=== PATIENT | female | born 2000 | race Hispanic/Latino ===

== ENCOUNTER 2022-06-26 11:08 | Emergency (ER) | payer OTHER ==
--- OUTSIDE RECORDS SUMMARY | 2022-06-26 11:11 | XMS REPORT | Continuity of Care Document ---
:2000 Author Organization [facility] Address [address] [place] [address] Dr. Mackey. [address] [place] [address] Care Team Providers Name Role Phone Pcp, Patient Does Not Have A Primary Care Physician [phone] JESSICA CARLSON Attending Clinician Unavailable CARYN SAWYER Attending Clinician Unavailable Caryn Sawyer DO Attending Clinician Doctor Unassigned, [place] Attending Clinician Unavailable SALLIE ODONNELL Attending Clinician Unavailable Sallie Saravia Attending Clinician Jessica Carlson PA-C Attending Clinician Cj Bañuelos Attending Clinician COLLEEN HODGE Attending Clinician Unavailable Colleen Hodge NP Attending Clinician Jose Blunt MD Attending Clinician Claudia MIRZA, Marleen Dasilva Attending Clinician Unavailable Lab, Ang - Db Attending Clinician Unavailable Misty Townsend Attending Clinician MISTY RODAS Attending Clinician Unavailable JOSE BLUNT Attending Clinician Unavailable UNKNOWN, ATTENDING Attending Clinician Unavailable Unknown, Attending Attending Clinician Unavailable Afia Garcia Attending Clinician AFIA SYLVESTER Attending Clinician Unavailable Funmilayo Young RN Attending Clinician Unavailable Lab, Adc Fam Pob I Attending Clinician Unavailable Hien Kelly Attending Clinician HIEN CAMP Attending Clinician Unavailable Provider, [facility] Attending Clinician Unavailable Pcp, Patient Does Not Have A Attending Clinician [phone] Chelsea Allison Attending Clinician Payers Payer Name Policy Type Policy Number Effective Date Expiration Date Narciso jernigan [facility] [id number] 2021 CHOICE MEDICAID 00:00:00 Problems Condition Condition Condition Status Onset Resolution Last Treating Co mments Source Name Details Category Date Date Treatment Clinician Date No known No known Disease Unive rs active active ity of problems problems [facility] Allergies, Adverse Reactions, Alerts Allergy Allergy Status Severity Reaction(s) Onset Inactive Treating Comm ents Source Name Type Date Date Clinician NO KNOWN Drug Active Univers ALLERGIE Class ity of S [facility] Social History Social Habit Start Date Stop Date Quantity Comments Source Exposure to 2021-11-09 2021-11-19 Not sure [facility] SARS-CoV-2 00:00:00 09:50:[address] [facility] (event) [place] Alcohol intake 2021-11-19 2021-11-19 Ex-drinker [facility] 00:00:00 00:00:00 (finding) [facility] Tobacco use and 2021-02-20 2021-02-20 Never used Universit y of exposure 00:00:00 00:00:00 [facility] History of 2021-02-06 Smoker University of tobacco use 00:00:00 [facility] Sex Assigned At [birth year] Universit y of 00:00:00 00:00:00 [facility] Smoking Status Start Date Stop Date Source Former smoker 2021-02-20 00:00:00 2021-02-20 00:00:00 Universi ty of [facility] Medications Ordered Filled Start Stop Current Ordering Indication Dosage Frequency Signature Comments Components Source Medication Medication Date Date Medication? Clinician (SIG) Name Name dexamethaso No 10mg 10 mg, Uni vers ne sod phos 11-19 Oral, ity of PF 16:15: 15:12 ONCE, 1 [place] injection 00 :00 dose, On Medica l 10 mg 11/19/21 Branch at 1115, 1 mL ipratropium No [id number] .5mg U nivers (ATROVENT) 11-17 ity of 0.02 % 15:30: 14:34 [place] nebulizer 00 :00 Medical solution Branch 0.5 mg ipratropium No [id number] .5mg 0.5 mg, Univers (ATROVENT) 11-17 Inhalation it y of 0.02 % 15:30: 14:34 , ONCE, 1 [place] nebulizer 00 :00 dose, On Medica l solution Mon11/17/21 Branc h 0.5 mg at 1030, Routine albuterol 2021- No [id number] 2{puff} Univers (VENTOLIN) 11-17 ity of inhaler 2 14:29: 14:30 [place] Puff 00 :00 Medical Branch albuterol 2021- No [id number] 2{puff} 2 Puff, Univers (VENTOLIN) 11-17 Inhalation it y of inhaler 2 14:29: 14:30 [place] Puff [place] :[place] dose, On Medical 11/17/21 Branch at 0930, Routine methylPREDN 2021- No [id number] 40mg U nivers ISolone sod 11-17 ity of succ 14:28: 14:31 [place] (SOLU-MEDRO 00 :00 Medical L (PF)) Branch injection 40 mg methylPREDN 2021- No [id number] 40mg 40 mg, Univers ISolone sod 11-17 Intramuscu i ty of succ 14:28: 14:31 lar, ONCE, [place] (SOLU-MEDRO 00 :00 1 dose, On Me dical L (PF)) Mon11/17/21 Branch injection at 0930, 40 mg Routine albuterol No [id number] 2.5mg Un reji (PROVENTIL) 11-17 ity of 2.5 mg /3 14:23: 14:29 [place] mL (0.083 00 :05 Medical %) Branch nebulizer solution 2.5 mg sulfamethox Yes [id number] 1{tbl} Take 1 Univers azole-trime 3-02 tablet by ity of thoprim 00:00: mouth 2 [place] 800-160 mg 00 (two) Medical per tablet times Branch daily. sulfamethox 2021-0 Yes [id number] 1{tbl} Take 1 Univers azole-trime 3-02 tablet by ity of thoprim 00:00: mouth 2 [place] 800-160 mg 00 (two) Medical per tablet times Branch daily. sulfamethox 2021-0 Yes [id number] 1{tbl} Take 1 Univers azole-trime 3-02 tablet by ity of thoprim 00:00: mouth 2 [place] 800-160 mg 00 (two) Medical per tablet times Branch daily. sulfamethox 2021-0 Yes [id number] 1{tbl} Take 1 Univers azole-trime 3-02 tablet by ity of thoprim 00:00: mouth 2 [place] 800-160 mg 00 (two) Medical per tablet times Branch daily. sulfamethox 2021-0 Yes [id number] 1{tbl} Take 1 Univers azole-trime 3-02 tablet by ity of thoprim 00:00: mouth 2 [place] 800-160 mg 00 (two) Medical per tablet times Branch daily. sulfamethox 2021-0 Yes [id number] 1{tbl} Take 1 Univers azole-trime 3-02 tablet by ity of thoprim 00:00: mouth 2 [place] 800-160 mg 00 (two) Medical per tablet times Branch daily. Vital Signs Vital Name Observation Time Observation Value Comments Source Systolic blood 2021-11-19 14:51:00 140 mm[Hg] [facility] Diastolic blood 2021-11-19 14:51:00 84 mm[Hg] [facility] Heart rate 2021-11-19 14:51:00 98 /min [facility] Body temperature 2021-11-19 14:51:[address] [facility] Respiratory rate 2021-11-19 14:51:00 18 /min [facility] Body height 2021-11-19 14:51:00 170.2 cm [facility] Body weight 2021-11-19 14:51:00 106.595 kg Universi ty of [place] [facility] BMI 2021-11-19 14:51:00 36.81 kg/m2 Universi ty of [facility] Body mass index 2021-11-19 14:51:00 97.86 % Unive rsity of (BMI) [Percentile] [place] Med ical Per age and sex Branch Oxygen saturation in 2021-11-19 14:51:00 100 /min University of Arterial blood by [facility] Pulse oximetry Branch Oxygen saturation in 2021-11-17 14:55:00 100 /min University of Arterial blood by [facility] Pulse oximetry Branch Systolic blood 2021-11-17 14:15:00 128 mm[Hg] Univer sity of pressure [place] [facility] Diastolic blood 2021-11-17 14:15:00 83 mm[Hg] Unive rsity of pressure [place] [facility] [place] Heart rate 2021-11-17 14:15:00 89 /min Universi ty of [facility] Body temperature 2021-11-17 14:15:00 36.78 Christen Univ ersity of [facility] Branch Respiratory rate 2021-11-17 14:15:00 20 /min Univ ersity of [facility] Body height 2021-11-17 14:15:00 170.2 cm Universi ty of [place] [facility] [place] Body weight 2021-11-17 14:15:00 106.731 kg Universi ty of [place] [facility] [place] BMI 2021-11-17 14:15:00 36.85 kg/m2 Universi ty of [facility] Body mass index 2021-11-17 14:15:00 97.87 % Unive rsity of (BMI) [Percentile] [place] Med ical Per age and sex Branch Systolic blood 2021-11-15 23:48:00 124 mm[Hg] Univer sity of pressure [place] [facility] Diastolic blood 2021-11-15 23:48:00 82 mm[Hg] Unive rsity of pressure [facility] Branch Heart rate 2021-11-15 23:48:00 107 /min Universi ty of [place] [facility] [place] Body temperature 2021-11-15 23:48:00 37 Christen Univ ersity of [facility] Branch Respiratory rate 2021-11-15 23:48:00 17 /min Univ ersity of [place] [facility] Body height 2021-11-15 23:48:00 170.2 cm Universi ty [facility] [place] [facility] [place] Body weight 2021-11-15 23:48:00 106.652 kg [facility]i ty [facility] [place] [facility] [place] BMI 2021-11-15 23:48:00 36.83 kg/m2 Universi ty [facility] Body mass index 2021-11-15 23:48:00 97.87 % Unive rsity of (BMI) [Percentile] [place] Med ical Per age and sex Branch Oxygen saturation in 2021-11-15 23:48:00 99 /min [facility] Arterial blood by [facility] Pulse oximetry Branch Systolic blood 2021-09-22 19:46:00 108 mm[Hg] Univer sity of pressure [facility] Diastolic blood 2021-09-22 19:46:00 70 mm[Hg] Unive rsity of pressure [facility] Heart rate 2021-09-22 19:46:00 80 /min Universi ty [facility] Body temperature 2021-09-22 19:46:00 36.94 [facility]en [facility] Respiratory rate 2021-09-22 19:46:00 18 /min [facility] Body height 2021-09-22 19:46:00 170.2 cm Universi ty of [facility] Body weight 2021-09-22 19:46:00 109.317 kg Universi ty [facility] BMI 2021-09-22 19:46:00 37.75 kg/m2 Universi ty [facility] Body mass index 2021-09-22 19:46:00 98.14 % Unive rsity of (BMI) [Percentile] [place] Med ical Per age and sex Branch Procedures Procedure Date / Time Performed Performing Clinician Sourc e CONSENT/REFUSAL FOR 2021-11-19 14:44:12 Doctor Unassigned, [facility] [place] [facility] POCT MOLECULAR STREP 2021-11-15 23:49:00 Sallie Odonnelle rsity of [facility] DISABILITY/FMLA 2021-09-23 06:01:00 Doctor Unassigned, [facility] Start End Encounter Admission Attending Care Care Encounter Source Date/Time Date/Time Type Type Clinicians Facility Department ID 2022-09-22 2022-09-22 Outpatient R ROBYN, [facility] [id number] Univers 14:00:00 14:00:00 JESSICA norman [facility] 2022-09-22 2022-09-22 Outpatient Lesvia CARLSON, [facility] [id number] Univers 14:00:00 14:00:00 JESSICA [facility] [place] [facility] 2021-11-19 2021-11-19 Emergency X [facility] ERT [id number] Univers 09:54:00 10:22:00 CARYN norman [facility] 2021-11-19 2021-11-19 Emergency [facility] 1.2.840.114 [id number] Univers 09:54:00 10:22:00 Caryn HAYNES 350.1.13.10 ity of [place] [id number] [facility] 084 [place] 2021-11-19 2021-11-19 Orders Doctor HERNANDEZ 1.2.840.114 [id number] Univers 00:00:00 00:00:00 Only Unassigned, JOURDAN 350.1.13.10 ity of [place] [facility] 4.2.7.2.[phone] [facility] 009 [place] 2021-11-17 2021-11-17 [facility] [id number] Univers 09:00:00 09:52:27 SALLIE norman o f [facility] 2021-11-17 2021-11-17 [facility] 1.2.840.114 [id number] Univers 09:00:00 09:52:27 Care [facility] 350.1.13.10 i ty of [place] 4.2.7.2.686 Dani as JOSEPHINE?BLEA [phone] [address] MEDICAL OFFICE BUILDING 2021-11-15 2021-11-15 Urgent [facility] 1.2.840.114 [id number] Univers 18:40:00 19:07:56 Care [facility] 350.1.13.10 i ty of [place] [facility] 4.2.7.2.686 Dani as JOSEPHINE?BLEA [phone] Fl dical TIFFANY [address] [place] MEDICAL OFFICE [facility] 2021-11-15 2021-11-15 Outpatient R BELLE [facility] [id number] Univers 18:40:00 19:07:56 SALLIE norman o f [facility] 2021-09-23 2021-09-23 Orders Doctor HERNANDEZ 1.2.840.114 [id number] Univers 00:00:00 00:00:00 Only Unassigned, JOURDAN 350.1.13.10 [facility] 4.2.7.2.686 Dani as [phone] [address] 2021-09-22 2021-09-22 [facility] 1.2.338.193 [id number] Univers 13:30:00 13:56:59 Visit Jessica HAYNES 350.1.13.10 i ty [place] [phone] Fl dical [address] 2021-09-22 2021-09-22 [facility] [id number] Univers 13:30:00 13:56:59 [facility] 2021-09-22 2021-09-22 Outpatient R ROBYN [facility] [id number] Univers 13:30:00 13:30:00 [facility] 2021-09-22 2021-09-22 [facility] [id number] Univers 13:30:00 13:30:00 [facility] 2021-09-15 2021-09-15 Outpatient R ROBYN [facility] [id number] Univers 14:15:00 14:50:37 [facility] 2021-09-15 2021-09-15 [facility] [id number] Univers 14:15:00 14:50:37 Visit Jessica HAYNES 350.1.13.10 i ty [place] [id number] Fl dic[address] 2021-09-15 2021-09-15 Letter [facility] 1.2.306.505 [id number] Univers 00:00:00 00:00:00 (Out) Jessica HAYNES 350.1.13.10 i ty [place] [id number] [address] 2021-09-08 2021-09-08 Outpatient R ROBYN [facility] [id number] Univers 13:00:00 14:16:30 JESSICA norman [facility] 2021-09-08 2021-09-08 [facility] [id number] Univers 13:00:00 14:16:30 Visit Jessica HAYNES 350.1.13.10 i ty [place].2.[place] [id number] [address] 2021-09-08 2021-09-08 Letter [facility] 1.2.792.883 [id number] Univers 00:00:00 00:00:00 (Out) Jessica HAYNES 350.1.13.10 i ty [place]2.[place] [id number] [address] 2021-09-01 2021-09-01 Emergency [facility] E[facility] [id number] Univers 13:14:00 14:35:00 CARYN norman [facility] 2021-09-01 2021-09-01 Emergency [facility] 1.2.840.114 [id number] Univers 13:14:00 14:35:00 Caryn HAYNES 350.1.13.10 ity [place]2.7.2.[place] CAMP[place] [id number] [address] 2021-08-31 2021-08-31 Telephone [facility] [id number] Univers 00:00:00 00:00:00 Cj Lakhani [employer] 350.1.13.10 ity of [facility] 4.2.7.2.686 Dani as MATERNAL [id number] Med ical & CHILD [address] [place] [address] 2021-08-29 2021-08-29 Emergency [facility] ERT [id number] Univers 01:33:00 02:34:00 COLLEEN ity of [facility] 2021-08-29 2021-08-29 Emergency [facility] 1.2.178.627 [id number] Univers 01:33:00 02:34:00 Colleen HAYNES 350.1.13.10 ity [facility] 4.2.7.2.686 [place] [facility] [id number] [facility] 084 [place] 2021-08-09 2021-08-09 Outpatient R BELLE [facility] [id number] Univers 15:20:00 15:50:19 SALLIE ester o f [facility] 2021-08-09 2021-08-09 Urgent Jose Blunt [facility] 1.2.840.114 [id number] Univers 15:20:00 15:50:[address] [facility] 350.1.13.10 ity [facility] 4.2.7.2.686 Dani as JOSEPHINE?BLEA [id number] [address] MEDICAL OFFICE BUILDING 2021-07-30 2021-07-30 Letter HERNANDEZ Taylor 1.2.840.114 [id number] Univers 00:00:00 00:00:00 (Out) Marleen SOLIMAN 350.1.13.10 it y of [facility] 4.2.7.2.[id number] [facility] 019 [place] 2021-07-29 2021-07-29 Telephone [facility] 1.2.840.114 [id number] Univers 00:00:00 00:00:00 [facility] 350.1.13.10 i ty of [place] 4.2.7.2.686 Dani as JOSEPHINE?BLEA [id number] [address] MEDICAL OFFICE BUILDING 2021-07-28 2021-07-28 Structurer Lab, Sacha - Calvin [facility] 1.2.840.1 [id number] Univers 13:15:00 13:30:00 Visit Clark [facility] 350.1.13.10 ity of [place] [facility] 4.2.7.2.686 Dani as JOSEPHINE?BLEA [id number] Fl steve [facility] [address] [place] MEDICAL OFFICE [facility] 2021-07-28 2021-07-28 Urgent [facility] 1.2.840. 114 [id number] Univers 12:40:00 12:40:00 Care Clark Misty [facility] 350.1.13.10 ity of [place] [facility] 4.2.7.2.686 Dani as JOSEPHINE?BLEA [id number] Fl steve [address] MEDICAL OFFICE [facility] 2021-07-28 2021-07-28 Outpatient R CLARK [facility] [id number] Univers 12:40:00 12:36:35 [facility] 2021-07-19 2021-07-19 Urgent [facility] 1.2.840.114 [id number] Univers 18:00:00 18:20:00 Care [facility] 350.1.13.10 it y of [place] 4.2.7.2.686 Dani as JOSEPHINE?BLEA [phone] [address] OFFICE [facility] 2021-07-19 2021-07-19 Outpatient R JOSE RAUL [facility] [id number] Univers 18:00:00 18:00:00 [facility] 2021-07-12 2021-07-12 Outpatient R MARSHA [facility] [id number] Univers 13:20:00 14:05:05 ATTENDING [facility] [place] [facility] 2021-07-12 2021-07-12 Urgent Belle, [facility] 1.2.840. 114 [id number] Univers 13:20:00 13:40:00 Care [facility] HEALTH 350.1.13.10 ity of [place] 4.2.7.2.686 Dani as JOSEPHINE?BLEA [id number] [address] OFFICE [facility] 2021-07-12 2021-07-12 Letter [facility] 1.2.840.114 [id number] Univers 00:00:00 00:00:00 (Out) [facility] 350.1.13.10 i ty of [place] 4.2.7.2.686 Dani as JOSEPHINE?BLEA [id number] Fl steve ALLEN [address] [facility] OFFICE [facility] 2021-03-19 2021-03-19 Refill [facility] 1.2.840.114 [id number] Univers 00:00:00 00:00:00 [facility] 350.1.13.10 i ty of [place] 4.2.7.2.686 Dani as Professio [id number] [address] 2021-02-22 2021-02-22 Urgent [facility] [id number] Univers 17:39:00 18:42:22 [facility] 350.1.13.10 it y of [place] 4.2.7.2.686 [place]i as Professio [id number] [address] 2021-02-22 2021-02-22 Outpatient R [facility] [id number] [facility] 17:40:00 17:40:00 [place] [facility] 2021-02-20 2021-02-20 [facility] 1.2.840. 114 [id number] Univers 09:45:52 10:14:45 [facility] 350.1.13.10 ity of [place] 4.2.7.2.686 Dani as Professio [id number] [address] 2021-02-20 2021-02-20 Outpatient R [facility] [id number] Univers 10:00:00 10:00:00 JOSE [facility] [place] [facility] 2021-02-20 2021-02-20 Telephone Funmilayo oYung 1.2.840.114 [id number] Univers 00:00:00 00:00:00 JOURDAN 350.1.13.10 it y of HOSPITAL 4.2.7.2.686 Dani as [id number] [address] 2021-01-04 2021-01-04 Laboratory Lab, Adc Fam Pob I [facility] 1.2. 840.114 [id number] Univers 10:39:25 10:59:25 Only [facility]ien [facility] 350.1.13.10 ity of [place] 4.2.7.2.686 Dani as Professio [id number] Fl dical nal 044 [place] Office [facility] One 2021-01-04 2021-01-04 Outpatient R TI [facility] [id number] Univers 10:40:00 10:40:00 HIEN ity of [facility] 2021-01-04 2021-01-04 Letter Doctor HERNANDEZ 1.2.840.114 [id number] Univers 00:00:00 00:00:00 (Out) Unassigned, JOURDAN 350.1.13.10 ity of [place] HOSPITAL 4.2.7.2.686 Dani as [id number] [address] 2021-01-04 2021-01-04 Orders Doctor HERNANDEZ 1.2.840.114 [id number] Univers 00:00:00 00:00:00 Only Unassigned, JOURDAN 350.1.13.10 ity of [place] HOSPITAL 4.2.7.2.[id number] [facility] 009 [place] 2021-01-04 2021-01-04 Letter Doctor HERNANDEZ 1.2.840.114 [id number] Univers 00:00:00 00:00:00 (Out) Unassigned, JOURDAN 350.1.13.10 ity of [place] HOSPITAL 4.2.7.2.686 Dani as [id number] [address] 2020-08-04 2020-08-04 Laboratory Lab, [facility] Fam Pob I [facility] 1.2. 840.114 [id number] Univers 16:42:40 17:02:40 Only Sixto [facility] 350.1.13.10 ity of [place] 4.2.7.2.686 Dani as Professio [phone] Fl dical nal 044 [facility] One 2020-08-04 2020-08-04 Outpatient R HIGINIO [facility] [id number] Univers 17:00:00 17:00:00 OMAYEMI ity of [facility] 2020-08-04 2020-08-04 Letter Doctor HERNANDEZ 1.2.840.114 [id number] Univers 00:00:00 00:00:00 (Out) UnassJOURDAN moraes 350.1.13.10 ity of [place] [facility] 4.2.7.2.686 Dani as [id number] [address] 2020-06-08 2020-06-08 Telephone Provider, [facility] 1.2.840.114 [id number] Univers 00:00:00 00:00:00 [facility] 350.1.13.10 ity of Care [place] 4.2.7.2.686 Dani as Professio [phone] [address] Office Building [facility] 2020-06-06 2020-06-06 [facility] 1.2. 840.114 [id number] Univers 18:14:21 18:34:21 Only Clark [facility] 350.1.13.10 ity of [place] 4.2.7.2.686 Dani as Professio [id number] [address] Office Building One 2020-06-06 2020-06-06 Outpatient R [facility] [id number] Univers 18:20:00 18:20:00 MISTY ity [facility] 2020-05-30 2020-05-30 Telephone Pcp, [facility] 1.2.465.133 [id number] Univers 00:00:00 00:00:00 Patient Health 350.1.13.10 it y of Does Not [place]2.[place] Professio [id number] [address] Office Building [facility] 2020-05-27 2020-05-27 Letter HERNANDEZ Taylor 1.2.840.114 [id number] Univers 00:00:00 00:00:00 (Out) Marleen SOLIMAN 350.1.13.10 it y of HOSPITAL 4.2.7.2.686 Dani as [phone] [address] 2020-05-25 2020-05-25 Laboratory Lab, Adc [facility] Pob I [facility] 1.2. 840.114 [id number] Univers 19:03:57 19:23:57 Only Chelsea Bhardwaj [employer] 350.1.13.10 ity of [place] 4.2.7.2.686 Dani as Profanetaio [phone] [address] Office Building One Results Test Description Test Time Test Comments Results Result Comments Source POCT MOLECULAR STREP 2021-11-15 23:56:19 Test Item Value Reference Range Interpretation Comme nts POCT Molecular Strep (test code = 00794-3) Negative Negative Lab Interpretation (test code = 78556-9) Normal [facility]
--- NOTE | 2022-06-26 11:43 | ER ---
Nurse's Notes [facility] Name: Cipriano Delgadillo Age: 21 yrs Sex: Female : 2000 Arrival Date: 06/26/2022 Time: 11:09 Bed 12 Private MD: Diagnosis: Epistaxis Presentation: 06/26 11:19 Chief complaint: Patient states: she has been having cough and congestion since ap3 06/23/2022. patient states that yesterday she started having blood in her mucous when she would blow her nose. she also reports today there was and increase of blood in her mucous when she would blow her nose, and she wanted to come get evaluated. Coronavirus screen: At this time, the client does not indicate any symptoms associated with coronavirus-19. Ebola Screen: No symptoms or risks identified at this time. Initial Sepsis Screen: Does the patient meet any 2 criteria? No. Patient's initial sepsis screen is negative. Does the patient have a suspected source of infection? No. Patient's initial sepsis screen is negative. Risk Assessment: Do you want to hurt yourself or someone else? Patient reports no desire to harm self or others. Onset of symptoms was June 23, 2022. 11:19 Method Of Arrival: Ambulatory ap3 11:19 Acuity: RYLEE 4 ap3 Triage Assessment: 11:21 General: Appears in no apparent distress. Behavior is calm, cooperative. Pain: Denies ap3 pain. EENT: Reports nasal congestion nasal discharge that is bloody. Neuro: Level of Consciousness is awake, alert, obeys commands, Oriented to person, place, time, situation. Cardiovascular: Patient's skin is warm and dry. Respiratory: Reports cough that is productive, Airway is patent Respiratory effort is even, unlabored. GI: Reports diarrhea. TRAINMAN: 11:22 LMP 06/12/2022 ap3 Historical: - Allergies: 11:21 No Known Allergies; ap3 - Home Meds: 11:21 None [Active]; ap3 - PMHx: 11:21 None; ap3 - Immunization history:: Client reports having NOT received the Covid vaccine. - Social history:: Smoking status: Reported history of juuling and/or vaping. Screenin:22 Abuse screen: Denies threats or abuse. Nutritional screening: No deficits noted. ap3 Tuberculosis screening: No symptoms or risk factors identified. Fall Risk None identified. Vital Signs: 11:19 BP 138 / 88; Pulse 94; Resp 17; Temp 98.5; Pulse Ox 100% ; Weight 104.33 kg; Height 2 ap3 ft. 7 in. (78.74 cm); 11:19 Body Mass Index 168.27 (104.33 kg, 78.74 cm) ap3 ED Course: 11:09 Patient arrived in ED. am2 11:18 Lorne Licea DO is Attending Physician. ms3 11:21 Triage completed. ap3 11:22 Arm band placed on left wrist. ap3 11:42 Romario Hargrove DO is Referral Physician. ms3 11:53 Patient has correct armband on for positive identification. Adult w/ patient. ap3 11:53 No provider procedures requiring assistance completed. Patient did not have IV access ap3 during this emergency room visit. Administered Medications: No medications were administered Medication: 11:53 VIS not applicable for this client. ap3 Outcome: 11:43 Discharge ordered by . ms3 11:53 Discharged to home ambulatory. ap3 11:53 Condition: good 11:53 Discharge instructions given to patient, Instructed on discharge instructions, follow up and referral plans. Demonstrated understanding of instructions, follow-up care. 11:53 Patient left the ED. ap3 Signatures: Sandrine Marvin am2 Sandrine Blair, RN RN ap3 Lorne Licea DO DO ms3
--- NOTE | 2022-06-26 11:43 | EDPHYS ---
Physician Documentation [facility] Name: Cipriano Delgadillo Age: 21 yrs Sex: Female : 2000 Arrival Date: 06/26/2022 Time: 11:09 Bed 12 Private MD: ED Physician Lorne Licea HPI: 06/26 11:44 This 21 yrs old Female presents to ER via Ambulatory with complaints of ms3 Diarrhea, Cold Symptoms, Cough - w/blood. 11:44 The patient presents to the emergency department with. ms3 11:44 The patient presents with a nose bleed, that is apparently anterior, from the right ms3 nare. Onset: The symptoms/episode began/occurred this morning. Modifying factors: The symptoms are alleviated by nothing. the symptoms are aggravated by nothing. Associated signs and symptoms: The patient has no apparent associated signs or symptoms. Severity of symptoms: At their worst the symptoms were mild in the emergency department the symptoms are unchanged Pain is currently a 0 / 10. PEDIATRICIAN/MEDICAL DOCTOR: 11:22 LMP 06/12/2022 ap3 Historical: - Allergies: 11:21 No Known Allergies; ap3 - Home Meds: 11:21 None [Active]; ap3 - PMHx: 11:21 None; ap3 - Immunization history:: Client reports having NOT received the Covid vaccine. - Social history:: Smoking status: Reported history of juuling and/or vaping. ROS: 11:44 Constitutional: Negative for fever, and chills. ms3 11:44 Respiratory: Negative for shortness of breath, cough, wheezing, and pleuritic chest pain, Abdomen/GI: Negative for abdominal pain, nausea, vomiting, diarrhea, and constipation, Skin: Negative for injury, rash, and discoloration. 11:44 ENT: Positive for nose bleed. 11:44 All other systems are negative. Exam: 11:44 Constitutional: This is a well developed, well nourished patient who is awake, alert, ms3 and in no acute distress. Head/Face: Normocephalic, atraumatic. ENT: Nares patent. No nasal discharge, no septal abnormalities noted. Tympanic membranes are normal and external auditory canals are clear. Oropharynx with no redness, swelling, or masses, exudates, or evidence of obstruction, uvula midline. Mucous membranes moist. Neck: Trachea midline, no cervical lymphadenopathy. Supple, full range of motion without nuchal rigidity, or vertebral point tenderness. No Meningismus. Chest/axilla: Normal chest wall appearance and motion. Nontender with no deformity. Cardiovascular: Regular rate and rhythm with a normal S1 and S2. No gallops, murmurs, or rubs. Normal PMI, no JVD. No pulse deficits. Respiratory: Lungs have equal breath sounds bilaterally, clear to auscultation and percussion. No rales, rhonchi or wheezes noted. No increased work of breathing, no retractions or nasal flaring. Back: No spinal tenderness. No costovertebral tenderness. Full range of motion. Psych: Awake, alert, with orientation to person, place and time. Behavior, mood, and affect are within normal limits. Vital Signs: 11:19 BP 138 / 88; Pulse 94; Resp 17; Temp 98.5; Pulse Ox 100% ; Weight 104.33 kg; Height 2 ap3 ft. 7 in. (78.74 cm); 11:19 Body Mass Index 168.27 (104.33 kg, 78.74 cm) ap3 MDM: 11:42 Patient medically screened. ms3 11:44 Data reviewed: vital signs, nurses notes, and as a result, I will discharge patient. ms3 Counseling: I had a detailed discussion with the patient and/or guardian regarding: the historical points, exam findings, and any diagnostic results supporting the discharge/admit diagnosis, the need for outpatient follow up, to return to the emergency department if symptoms worsen or persist or if there are any questions or concerns that arise at home. ED course: Discussed physical exam findings with patient. Patient to follow-up with Dr. Hargrove in 2 days. Patient understands agrees with plan. All questions were answered. Return precautions discussed include worsening symptoms, or any other concerns. Administered Medications: No medications were administered Disposition Summary: 06/26/22 11:43 Discharge Ordered Location: Home ms3 Condition: Stable ms3 Diagnosis - Epistaxis ms3 Followup: ms3 - With: Romario Hargrove DO - When: 2 - 3 days - Reason: Recheck today's complaints Discharge Instructions: - Discharge Summary Sheet ms3 - Nosebleed, Adult ms3 Forms: - Medication Reconciliation Form ms3 - Thank You Letter ms3 - Antibiotic Education ms3 - Prescription Opioid Use ms3 Signatures: Sandrine Blair, RN RN ap3 Lorne Licea, DO DO ms3
[2022-06-26 11:59] VITALS: BP 138/88; TEMP 98.5; O2SAT 100
== END 2022-06-26 11:53 | disposition home or self-care (01) ==
LOC: ER 11:08
DX: R04.0 Epistaxis (principal)
CPT/HCPCS: 99281

== ENCOUNTER 2024-01-04 09:32 | Emergency (ER) | payer OTHER ==
--- OUTSIDE RECORDS SUMMARY | 2024-01-04 09:39 | XMS REPORT | Continuity of Care Document ---
Author Name Unknown Address [address] [facility] [address]. [address] [place] [address] [facility] thconnect Address [address] [facility]. 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 Name Role Phone Kvng RNP Annamaria Primary Care Physician [phone] SHAHEEN URIBE Attending Clinician SHAHEEN Fitzgerald Attending Clinician Anuja jalloh Doctor Unassigned, Plaza Attending Clinician U navailable RADIOLOGY Attending Clinician Unavailable Radiology Attending Clinician Unavailable JOSE BLUNT Attending Clinician Unavailable Jose Blunt MD Attending Clinician [phone] Unknown, Attending Attending Clinician Unavailab le UNKNOWN, ATTENDING Attending Clinician Unavailab le 2, Adc Lab Attending Clinician Unavailable Jessica Carlson PA-C Attending Clinician [phone] JESSICA CARLSON Attending Clinician Unavailable CARYN SAWYER Attending Clinician Unavailab Caryn Parra DO Attending Clinician [phone] SALLIE ODONNELL Attending Clinician UnavailSallie Aguirre Attending Clinician [phone] Cj Bañuelos Attending Clinician [phone] COLLEEN HODGE Attending Clinician Unavailable Colleen Hodge NP Attending Clinician [phone] Claudia MIRZA, Marleen Dasilva Attending Clinician Unavailab le Lab, Ang - Db Attending Clinician Unavailable Clark MORTGAGE LOAN COMPUTATION CLERK, Misty Attending Clinician [phone] MISTY RODAS Attending Clinician Unavailable Isaac MORTGAGE LOAN COMPUTATION CLERK, Afia Attending Clinician [phone] AFIA SYLVESTER Attending Clinician Unavailxiao Young RN, Funmilayo Ram Attending Clinician Unavailable Lab, Adc Fam Pob I Attending Clinician Unavailab renetta Camp MORTGAGE LOAN COMPUTATION CLERK, Hien Attending Clinician [phone] HIEN CAMP Attending Clinician Unavailable Provider, [facility] Attending Clinician Un available Pcp, Patient Does Not Have A Attending Clinician Chelsea Allison Attending Clinician [phone] CHINA PAIZ Admitting Clinician Unavail able Payers Payer Name Policy Type Policy Number Effective Date Expirati on Date Source Problems Condition Name Condition Details Condition Category Status Onset Date Resolution Date Last Treatment Date Treating Clinician Comments Source Obesity (BMI 30-39.9) Obesity (BMI 30-39.9) Disease Active 09-22 00:00: 00 [facility] No known active problems No known active problems Disease [facility] Allergies, Adverse Reactions, Alerts Allergy Name Allergy Type Status Severity Reaction(s) Onset Date Inactive Date Treating Clinician Comments Source NO KNOWN ALLERGIE S Drug Class Active [facility] Social History Social Habit Start Date Stop Date Quantity Comments Source Gender identity [facility] Sexual orientation [facility] Exposure to SARS-CoV-2 (event) 2022-10-18 00:00:00 2022-10-28 10:22:00 Not sure [facility] Alcohol intake 2022-10-28 00:00:00 2022-10-28 00:00:00 Ex-drinker (finding) [facility] Tobacco use and exposure 2021-02-22 00:00:00 2021-02-22 00:00:00 Smokeless tobacco non-user [facility] History of Social function 2021-02-22 00:00:00 2021-02-22 00:00:00 [facility] History of tobacco use 2021-02-06 00:00:00 Cigarette Smoker [facility] Sex Assigned At 2002 00:00:00 2000 00:00:00 [facility] Smoking Status Start Date Stop Date Source Ex-smoker 2021-02-22 00:00:00 2021-02-22 00:00:00 [facility] Medications Ordered Medication Name Filled Medication Name Start Date Stop Date Current Medication? Ordering Clinician Indication Dosage Frequency Signature (SIG) Comments Components Source mupirocin 2 % topical ointment 12-14 00:00: 00 Yes 1% Lisandro Franco cholecalcif faye (vitamin D3) 1,250 mcg (50,000 unit) capsule 12-05 00:00: 00 Yes 1(50,00 0 unit) Lisandro Franco Miralax 17 gram/dose oral powder 12-03 00:00: 00 Yes gram/do se Lisandro Franco docusate sodium 250 mg capsule 24 00:00: 00 Yes 1mg Lisandro Franco ibuprofen 800 mg tablet 18 00:00: 00 Yes 1mg Lisandro Franco benzonatate 200 mg capsule 10-19 00:00: 00 Yes 1mg Lisandro Franco Lidocaine Viscous 2 % mucosal solution 10-19 00:00: 00 Yes 10% Lisandro Franco ondansetron 4 mg disintegrat ing tablet - 00:00: 00 Yes 1mg Lisandro Franco metformin ER 500 mg tablet,exte nded release 24 hr 10-16 00:00: 00 Yes 1mg Lisandro Franco TAKE 1 TABLET FOR MIGRAINE RELIEF. MAY REPEAT EVERY 2 HOURS. MAX 200MG/DAY. 2-27 00:00: 00 11-15 00:00 :00 No 50 Lisandro Franco TAKE 10 ML EVERY 6-8 HOURS NEEDED FOR COUGH AND CONGESTION 2-19 00:00: 00 11-15 00:00 :00 No [id number] Lisandro Franco INJECT 0.25 MG SUBCUTANEOU SLY WEEKLY, INCREASE TO 0.5 MG SUBCUTANEOU SLY WEEKLY AFTER 4 WEEKS 1-08 00:00: 00 11-15 00:00 :00 No 23 Lisandro Franco TAKE 1 CAPSULE TWICE DAILY. 2022-07 2 00:00: 00 11-15 00:00 :00 No 75 Lisandro Franco TAKE 10 ML EVERY 4-6 HOURS NEEDED FOR COUGH AND CONGESTION 2022-07 2 00:00: 00 11-15 00:00 :00 No [id number] Lisandro Franco TAKE 1 TABLET BY MOUTH EVERY DAY 2022-07 2- 00:00: 00 11-15 00:00 :00 No 500 Lisandro Franco TAKE 1 TABLET BY MOUTH EVERY DAY 2022-07 0 00:00: 00 11-15 00:00 :00 No 500 Lisandro Franco TAKE 1 TABLET EVERY 8 HOURS WITH FOOD NEEDED. 03-07 00:00: 00 11-15 00:00 :00 No 800 Lisandro Franco TAKE 1 TABLET DAILY. 03-07 00:00: 00 11-15 00:00 :00 No 10 Lisandrodonovan Franco MEDROXYPR AC 03-07 00:00: 00 11-15 00:00 :00 No Lisandro Franco TAKE 1 TABLET BY MOUTH ONCE DAILY 02-09 00:00: 00 11-15 00:00 :00 No 500 Lisandro Franco NAPROXEN 02-09 00:00: 00 11-15 00:00 :00 No Lisandro Franco TAKE 1 TABLET EVERY 12 HOURS DAILY. 02-07 00:00: 00 11-15 00:00 :00 No 250 Lisandro Franco TAKE 1 TABLET BY MOUTH EVERY DAY FOR 5 DAYS 11-02 00:00: 00 11-15 00:00 :00 No Lisandro Franco ondansetron 4 mg disintegrat ing tablet 10-28 00:00: 00 Yes [id number] 4mg Take 1 tablet by mouth every 8 (eight) hours as needed for Nausea and Vomiting (N/V). [facility] benzonatate 100 mg capsule 10-28 00:00: 00 Yes [id number] 200mg Take 2 capsules by mouth every 8 (eight) hours as needed for Cough. [facility] bromphenira mine-pseudo ephedrine-D M (BROMFED DM) 2-30-10 mg/5 mL syrup 10-28 00:00: 00 Yes [id number] 10mL Take 10 mL by mouth 4 (four) times daily as needed for Congestion /Allergies . [facility] ONDANSETRON ODT 10-28 00:00: 00 11-15 00:00 :00 No Lisandro Franco BROM/PSE/DM SYP 10-28 00:00: 00 11-15 00:00 :00 No Lisandro Franco BENZONATATE 10-28 00:00: 00 11-15 00:00 :00 No Lisandro Franco bromphenira mine-pseudo ephedrine-D M (BROMFED DM) 2-30-10 mg/5 mL syrup 10-28 00:00: 00 10-28 00:00 :00 No [id number] 5mL Take 5 mL by mouth 4 (four) times daily as needed for Congestion /Allergies . [facility] dexamethaso ne sod phos PF injection 10 mg 11-19 16:15: 00 11-19 15:12 :00 No 10mg 10 mg, Oral, ONCE, 1 dose, On Mon11/19/21 at 1115, 1 mL [facility] ipratropium (ATROVENT) 0.02 % nebulizer solution 0.5 mg 11-17 15:30: 00 11-17 14:34 :00 No [id number] .5mg [facility] albuterol (VENTOLIN) inhaler 2 Puff 11-17 14:29: 00 11-17 14:30 :00 No [id number] 2{puff} [facility] methylPREDN ISolone sod succ (SOLU-MEDRO L (PF)) injection 40 mg 11-17 14:28: 00 11-17 14:31 :00 No [id number] 40mg [facility] albuterol (PROVENTIL) 2.5 mg /3 mL (0.083 %) nebulizer solution 2.5 mg 11-17 14:23: 00 11-17 14:29 :05 No [id number] 2.5mg [facility] sulfamethox azole-trime thoprim 800-160 mg per tablet 09-15 00:00: 00 Yes [id number] 1{tbl} Take 1 tablet by mouth 2 (two) times daily. [facility] triamcinolo ne acetonide 0.5 % topical ointment 07-30 00:00: 00 Yes 1% Lisandro Franco prednisone 10 mg tablet 07-30 00:00: 00 Yes mg Lisandro Franco Vital Signs Vital Name Observation Time Observation Value Comments S ource Systolic blood pressure 2022-10-28 15:52:00 104 mm[Hg] [facility] Diastolic blood pressure 2022-10-28 15:52:00 71 mm[Hg] [facility] Heart rate 2022-10-28 15:28:00 118 /min [facility] Body temperature 2022-10-28 15:28:00 37.67 Christen [facility] Respiratory rate 2022-10-28 15:28:00 18 /min [facility] Body height 2022-10-28 15:28:00 170.2 cm [facility] Body weight 2022-10-28 15:28:00 106.731 kg [facility] BMI 2022-10-28 15:28:00 36.85 kg/m2 [facility] Oxygen saturation in Arterial blood by Pulse oximetry 2022-10-28 15:28:00 98 /min [facility] Systolic blood pressure 2022-09-22 20:22:00 119 mm[Hg] [facility] Diastolic blood pressure 2022-09-22 20:22:00 77 mm[Hg] [facility] Heart rate 2022-09-22 20:22:00 91 /min [facility] Body temperature 2022-09-22 20:22:00 36.78 Christen [facility] Respiratory rate 2022-09-22 20:22:00 18 /min [facility] Body height 2022-09-22 20:22:00 170.2 cm [facility] Body weight 2022-09-22 20:22:00 108.863 kg [facility] BMI 2022-09-22 20:22:00 37.59 kg/m2 [facility] Systolic blood pressure 2021-11-19 14:51:00 140 mm[Hg] [facility] Diastolic blood pressure 2021-11-19 14:51:00 84 mm[Hg] [facility] Heart rate 2021-11-19 14:51:00 98 /min [facility] Body temperature 2021-11-19 14:51:00 37.22 Christen [facility] Respiratory rate 2021-11-19 14:51:00 18 /min [facility] Body height 2021-11-19 14:51:00 170.2 cm [facility] Body weight 2021-11-19 14:51:00 106.595 kg [facility] BMI 2021-11-19 14:51:00 36.81 kg/m2 [facility] Body mass index (BMI) [Percentile] Per age and sex 2021-11-19 14:51:00 97.86 % [facility] Oxygen saturation in Arterial blood by Pulse oximetry 2021-11-19 14:51:00 100 /min [facility] Oxygen saturation in Arterial blood by Pulse oximetry 2021-11-17 14:55:00 100 /min [facility] Systolic blood pressure 2021-11-17 14:15:00 128 mm[Hg] [facility] Diastolic blood pressure 2021-11-17 14:15:00 83 mm[Hg] [facility] Heart rate 2021-11-17 14:15:00 89 /min [facility] Body temperature 2021-11-17 14:15:00 36.78 Christen [facility] Respiratory rate 2021-11-17 14:15:00 20 /min [facility] Body height 2021-11-17 14:15:00 170.2 cm [facility] Body weight 2021-11-17 14:15:00 106.731 kg [facility] BMI 2021-11-17 14:15:00 36.85 kg/m2 [facility] Body mass index (BMI) [Percentile] Per age and sex 2021-11-17 14:15:00 97.87 % [facility] Systolic blood pressure 2021-11-15 23:48:00 124 mm[Hg] [facility] Diastolic blood pressure 2021-11-15 23:48:00 82 mm[Hg] [facility] Heart rate 2021-11-15 23:48:00 107 /min [facility] Body temperature 2021-11-15 23:48:00 37 Christen [facility] Respiratory rate 2021-11-15 23:48:00 17 /min [facility] Body height 2021-11-15 23:48:00 170.2 cm [facility] Body weight 2021-11-15 23:48:00 106.652 kg [facility] BMI 2021-11-15 23:48:00 36.83 kg/m2 [facility] Body mass index (BMI) [Percentile] Per age and sex 2021-11-15 23:48:00 97.87 % [facility] Oxygen saturation in Arterial blood by Pulse oximetry 2021-11-15 23:48:00 99 /min [facility] Systolic blood pressure 2021-09-22 19:46:00 108 mm[Hg] [facility] Diastolic blood pressure 2021-09-22 19:46:00 70 mm[Hg] [facility] Heart rate 2021-09-22 19:46:00 80 /min [facility] Body temperature 2021-09-22 19:46:00 36.94 Christen [facility] Respiratory rate 2021-09-22 19:46:00 18 /min [facility] Body height 2021-09-22 19:46:00 170.2 cm [facility] Body weight 2021-09-22 19:46:00 109.317 kg [facility] BMI 2021-09-22 19:46:00 37.75 kg/m2 [facility] Body mass index (BMI) [Percentile] Per age and sex 2021-09-22 19:46:00 98.14 % [facility] BP Systolic 2023-12-29 16:45:00 96 mm[Hg] Step hen F Salvador BP Diastolic 2023-12-29 16:45:00 62 mm[Hg] Narendra phen F Salvador Weight Measured 2023-12-29 16:45:00 258.20 pounds Lisandro F Salvador Height Measured 2023-12-29 16:45:00 64.00 inches Lisandro F [place] Body Temperature 2023-12-29 16:45:00 98.20 degrees Lisandro F Salvador Heart Rate 2023-12-29 16:45:00 89.00 /min Yani en F Salvador Respiratory Rate 2023-12-29 16:45:00 Lisandro F Salvador BP Systolic 2023-12-22 17:36:00 107 mm[Hg] Step hen F Salvador BP Diastolic 2023-12-22 17:36:00 68 mm[Hg] Narendra phen F [place] Weight Measured 2023-12-22 17:36:00 256.80 pounds Lisandro F Salvador Height Measured 2023-12-22 17:36:00 64.00 inches Lisandro F Salvador Body Temperature 2023-12-22 17:36:00 98.00 degrees Lisandro F Salvador Heart Rate 2023-12-22 17:36:00 89.00 /min Yani en F Salvador Respiratory Rate 2023-12-22 17:36:00 Lisandro F Salvador BP Systolic 2023-12-05 15:01:00 100 mm[Hg] Step hen F Salvador BP Diastolic 2023-12-05 15:01:00 69 mm[Hg] Narendra phen F [place] Weight Measured 2023-12-05 15:01:00 261.80 pounds Lisandro F Salvador Height Measured 2023-12-05 15:01:00 64.00 inches Lisandro F Salvador Body Temperature 2023-12-05 15:01:00 Lisandro F Salvador Heart Rate 2023-12-05 15:01:00 91.00 /min Yani en F Salvador Respiratory Rate 2023-12-05 15:01:00 Lisandro F Salvador BP Systolic 2023-12-04 17:35:00 113 mm[Hg] Step hen F Salvador BP Diastolic 2023-12-04 17:35:00 63 mm[Hg] Narendra phen F [place] Weight Measured 2023-12-04 17:35:00 262.00 pounds Lisandro F Salvador Height Measured 2023-12-04 17:35:00 64.00 inches Lisandro F Salvador Body Temperature 2023-12-04 17:35:00 97.90 degrees Lisandro F Salvador Heart Rate 2023-12-04 17:35:00 86.00 /min Yani en F Salvador Respiratory Rate 2023-12-04 17:35:00 Lisandro F Salvador BP Systolic 2023-11-08 16:38:00 118 mm[Hg] Step hen F Salvador BP Diastolic 2023-11-08 16:38:00 79 mm[Hg] Narendra phen F [place] Weight Measured 2023-11-08 16:38:00 262.00 pounds Lisandro F Salvador Height Measured 2023-11-08 16:38:00 64.00 inches Lisandro F Salvador Body Temperature 2023-11-08 16:38:00 98.80 degrees Lisandro F Salvador Heart Rate 2023-11-08 16:38:00 79.00 /min Yani en F Salvador Respiratory Rate 2023-11-08 16:38:00 18.00 /min Lisandro F Salvador BP Systolic 2023-11-02 16:48:00 108 mm[Hg] Step hen F Salvador BP Diastolic 2023-11-02 16:48:00 63 mm[Hg] Narendra phen F [place] Weight Measured 2023-11-02 16:48:00 259.60 pounds Lisandro F Salvador Height Measured 2023-11-02 16:48:00 64.00 inches Lisandro F Salvador Body Temperature 2023-11-02 16:48:00 98.10 degrees Lisandro F Salvador Heart Rate 2023-11-02 16:48:00 73.00 /min Yani en F Salvador Respiratory Rate 2023-11-02 16:48:00 Lisandro F Salvador BP Systolic 2023-10-17 16:42:00 126 mm[Hg] Step hen F Salvador BP Diastolic 2023-10-17 16:42:00 78 mm[Hg] Narendra phen F Salvador Weight Measured 2023-10-17 16:42:00 261.00 pounds Lisandro F Salvador Height Measured 2023-10-17 16:42:00 64.00 inches Lisandro F Salvador Body Temperature 2023-10-17 16:42:00 98.60 degrees Lisandro F Salvador Heart Rate 2023-10-17 16:42:00 79.00 /min Yani en F Salvador Respiratory Rate 2023-10-17 16:42:00 Lisandro F Salvador BP Systolic 2023-09-12 08:25:00 123 mm[Hg] Step hen F Salvador BP Diastolic 2023-09-12 08:25:00 88 mm[Hg] Narendra phen F Salvador Weight Measured 2023-09-12 08:25:00 267.00 pounds Lisandro F Salvador Height Measured 2023-09-12 08:25:00 64.00 inches Lisandro F Salvador Body Temperature 2023-09-12 08:25:00 98.20 degrees Lisandro F Salvador Heart Rate 2023-09-12 08:25:00 87.00 /min Yani en F Salvador Respiratory Rate 2023-09-12 08:25:00 Lisandro F Salvador BP Systolic 2023-09-04 08:34:00 119 mm[Hg] Step hen F Salvador BP Diastolic 2023-09-04 08:34:00 69 mm[Hg] Narendra phen F Salvador Weight Measured 2023-09-04 08:34:00 262.20 pounds Lisandro F Salvador Height Measured 2023-09-04 08:34:00 64.00 inches Lisandro F Salvador Body Temperature 2023-09-04 08:34:00 98.70 degrees Lisandro F Salvador Heart Rate 2023-09-04 08:34:00 108.00 /min Step hen F Salvador Respiratory Rate 2023-09-04 08:34:00 Lisandro F Salvador BP Systolic 2023-07-24 16:47:00 126 mm[Hg] Step hen F Salvador BP Diastolic 2023-07-24 16:47:00 88 mm[Hg] Narendra phen F Salvador Weight Measured 2023-07-24 16:47:00 269.60 pounds Lisandro F Salvador Height Measured 2023-07-24 16:47:00 64.00 inches Lisandro F Salvador Body Temperature 2023-07-24 16:47:00 98.20 degrees Lisandro F Salvador Heart Rate 2023-07-24 16:47:00 104.00 /min Step hen F Salvador Respiratory Rate 2023-07-24 16:47:00 Lisandro F Salvdaor BP Systolic 2023-07-04 09:30:00 135 mm[Hg] Step hen F Salvador BP Diastolic 2023-07-04 09:30:00 60 mm[Hg] Narendra phen F Salvador Weight Measured 2023-07-04 09:30:00 230.00 pounds Lisandro F Salvador Height Measured 2023-07-04 09:30:00 64.00 inches Lisandro F Salvador Body Temperature 2023-07-04 09:30:00 98.10 degrees Lisandro F Salvador Heart Rate 2023-07-04 09:30:00 89.00 /min Yani en F Salvador Respiratory Rate 2023-07-04 09:30:00 Lisandro F Salvador BP Systolic 2023-06-01 08:33:00 138 mm[Hg] Step hen F Salvador BP Diastolic 2023-06-01 08:33:00 70 mm[Hg] Narendra phen F Salvador Weight Measured 2023-06-01 08:33:00 272.80 pounds Lisandro F Salvador Height Measured 2023-06-01 08:33:00 64.00 inches Lisandor F Salvador Body Temperature 2023-06-01 08:33:00 98.20 degrees Lisandro F Salvador Heart Rate 2023-06-01 08:33:00 104.00 /min Step hen F Salvador Respiratory Rate 2023-06-01 08:33:00 Lisandor F Salvador BP Systolic 2023-02-07 17:14:00 118 mm[Hg] Step hen F Salvador BP Diastolic 2023-02-07 17:14:00 83 mm[Hg] Narendra phen F Salvador Weight Measured 2023-02-07 17:14:00 250.80 pounds Lisandro F Salvador Height Measured 2023-02-07 17:14:00 64.00 inches Lisandro F Salvador Body Temperature 2023-02-07 17:14:00 98.60 degrees Lisandro F Salvador Heart Rate 2023-02-07 17:14:00 93.00 /min Yani en F Salvador Respiratory Rate 2023-02-07 17:14:00 Lisandro F Salvador BP Systolic 2023-01-09 14:33:00 132 mm[Hg] Step hen F Salvador BP Diastolic 2023-01-09 14:33:00 66 mm[Hg] Narendra phen F Salvador Weight Measured 2023-01-09 14:33:00 245.40 pounds Lisandro F Salvador Height Measured 2023-01-09 14:33:00 64.00 inches Lisandro F Salvador Body Temperature 2023-01-09 14:33:00 98.20 degrees Lisandro F Salvador Heart Rate 2023-01-09 14:33:00 102.00 /min Step hen F Salvador Respiratory Rate 2023-01-09 14:33:00 18.00 /min Lisandro F Salvador BP Systolic 2018-07-30 12:11:00 111 mm[Hg] Step hen F Salvador BP Diastolic 2018-07-30 12:11:00 76 mm[Hg] Narendra phen F Salvador Weight Measured 2018-07-30 12:11:00 140.00 pounds Lisandro Franco Height Measured 2018-07-30 12:11:00 64.00 inches Lisandro Franco Body Temperature 2018-07-30 12:11:00 98.70 degrees Lisandro Franco Heart Rate 2018-07-30 12:11:00 82.00 /min Yani en F Salvador Respiratory Rate 2018-07-30 12:11:00 18.00 /min Lisandro Franco Procedures Procedure Date / Time Performed Performing Clinician Source REFERRAL- REQUEST/RESPONSE 2023-03-09 05:01:00 Doctor Unassigned, Plaza [facility] US PELVIS COMPLETE WITH TRANSVAGINAL 2023-02-06 17:01:17 Requisition, Paper [facility] POCT MOLECULAR STREP 2022-10-28 15:35:00 Unknown, Atte hayes [facility] ASSIGNMENT OF BENEFITS 2022-09-22 20:07:39 Docto r Unassigned, Plaza [facility] CONSENT/REFUSAL FOR DIAGNOSIS AND TREATMENT 2021-11-19 14:44:12 Doctor Unassigned, Plaza [facility] POCT MOLECULAR STREP 2021-11-15 23:49:00 VinodYenifer harris rox [facility] DISABILITY/FMLA 2021-09-23 06:01:00 Doctor Unass igned, Plaza [facility] Encounters Start Date/Time End Date/Time Encounter Type Admission Type Attending [facility] Care Department Encounter ID Source 2024-01-03 15:26:54 2024-01-03 15:26:54 Outpatient SFA SFA [id number] Lisandro Franco 2023-12-30 11:46:37 2023-12-30 11:46:37 Outpatient SFA SFA [id number] Lisandro Franco 2023-12-29 16:38:55 2023-12-29 16:38:55 Outpatient SFA SFA [id number] Lisandro Franco 2023-12-29 00:00:00 2023-12-29 00:00:00 Outpatient Visit SFA [id number] Lisandro Franco 2023-12-22 17:35:41 2023-12-22 17:35:41 Outpatient SFA SFA [id number] Lisandro Franco 2023-12-22 00:00:00 2023-12-22 00:00:00 Outpatient Visit SFA [id number] Lisandro Franco 2023-12-15 17:31:33 2023-12-15 17:31:33 Outpatient SFA SFA [id number] Lisandro Franco 2023-12-15 00:00:00 2023-12-15 00:00:00 Outpatient Visit SFA [id number] Lisandro Franco 2023-12-05 14:49:34 2023-12-05 14:49:34 Outpatient SFA SFA [id number] Lisandro Franco 2023-12-04 17:33:11 2023-12-04 17:33:11 Outpatient SFA SFA [id number] Lisandro Franco 2023-12-04 00:00:00 2023-12-04 00:00:00 Outpatient Visit SFA [id number] Lisandro Franco 2023-11-08 16:37:14 2023-11-08 16:37:14 Outpatient SFA [id number] [id number] Lisandro Huynh Salvador 2023-11-08 00:00:00 2023-11-08 00:00:00 Outpatient Visit SFA [id number] Lisandro Huynh Salvador 2023-11-02 16:42:12 2023-11-02 16:42:12 Outpatient SFA [id number] [id number] Lisandro Huynh [place] 2023-11-02 00:00:00 2023-11-02 00:00:00 Outpatient Visit SFA [id number] Lisandro Franco 2023-10-18 11:45:09 2023-10-18 11:45:09 Outpatient SFA SFA [id number] Lisandro Huynh Salvador 2023-10-17 16:38:02 2023-10-17 16:38:02 Outpatient SFA SFA [id number] Lisandro Huynh [place] 2023-09-12 08:21:26 2023-09-12 08:21:26 Outpatient SFA [id number] [id number] Lisandro Huynh [place] 2023-09-04 08:26:39 2023-09-04 08:26:39 Outpatient SFA SFA [id number] Lisandro Huynh [place] 2023-08-16 12:39:26 2023-08-16 12:39:26 Outpatient SFA SFA [id number] Lisandro Huynh [place] 2023-08-10 14:14:16 2023-08-10 14:14:16 Outpatient SFA SFA [id number] Lisandro Huynh [place] 2023-07-25 09:14:13 2023-07-25 09:14:13 Outpatient SFA SFA [id number] Lisandro Huynh [place] 2023-07-24 16:57:09 2023-07-24 16:57:09 Outpatient [facility] [id number] Lisandro Franco 2023-07-04 11:05:21 2023-07-04 11:05:21 Outpatient [place] [id number] Lisandro Franco 2023-06-03 11:39:32 2023-06-03 11:39:32 Outpatient [facility] [id number] Lisandro Franco 2023-06-01 13:30:11 2023-06-01 13:30:11 Outpatient [place] [id number] Lisandro Franco 2023-05-30 14:00:00 2023-05-30 14:00:00 Outpatient R YOUNG-JIM S, SHAHEEN YOUNG-JIM S, SHAHEEN [facility] [id number] [facility] 2023-05-16 00:00:00 2023-05-16 00:00:00 Patient Secure Msg Doctor Unassigned, Plaza [facility] [id number] [facility] 2023-03-09 00:00:00 2023-03-09 00:00:00 Orders Only Doctor Unassigned, Plaza [facility] [id number] [facility] 2023-02-08 08:45:54 2023-02-08 08:45:54 Outpatient [facility] [id number] Lisandro Huynh Salvador 2023-02-07 17:09:37 2023-02-07 17:09:37 Outpatient [facility] 0725 Lisandro Huynh Salvador 2023-02-06 11:20:40 2023-02-06 23:59:00 Outpatient R RADIOLOGY [facility] [id number] [facility] 2023-02-06 11:20:40 2023-02-06 23:59:[address] [facility] 1.2.840.114 350.1.13.10 4.2.7.2.686 [id number] [facility] 2023-01-09 14:20:50 2023-01-09 14:20:50 Outpatient [facility] [id number] Lisandro Franco 2022-10-28 10:20:00 2022-10-28 10:54:25 Outpatient R JOSE BLUNT [facility] [id number] [facility] 2022-10-28 10:20:00 2022-10-28 10:54:25 Urgent Care Jose Blunt Unknown, Attending [facility] 1..840.114 350.1.13.10 4.2.7.2.686 [id number] [facility] 2022-09-22 15:15:00 2022-09-22 15:30:00 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 2, Adc Lab Jessica Carlson [facility] 1.2.840.114 350.1.13.10 4.2.7.2.686 [id number] [facility] 2022-09-22 14:00:00 2022-09-22 15:05:41 [id number] 2022-09-22 14:00:00 2022-09-22 15:05:41 Office Visit Jessica Carlson [facility] 1.2.840.114 350.1.13.10 4.2.7.2.686 [id number] [facility] 2022-09-22 14:00:00 2022-09-22 14:00:00 Outpatient R ROBYN [facility] [id number] [facility] 2022-09-22 00:00:00 2022-09-22 00:00:00 Orders Only Doctor Unassigned, Plaza [facility] 1.114 350.1.13.10 4.2.7.2.686 [id number] [facility] 2021-11-19 09:54:00 2021-11-19 10:22:00 Emergency X CARYN SAWYER [facility] ERT [id number] [facility] 2021-11-19 09:54:00 2021-11-19 10:22:00 Emergency Caryn Sawyer Reinier [facility] 1.114 350.1.13.10 4.2.7.2.686 [id number] [facility] 2021-11-19 00:00:00 2021-11-19 00:00:00 Orders Only Doctor Unassigned, Plaza [facility] 1.114 350.1.13.10 4.2.7.2.686 [id number] [facility] 2021-11-17 09:00:00 2021-11-17 09:52:27 Outpatient R [facility] [id number] [facility] 2021-11-17 09:00:00 2021-11-17 09:52:27 Urgent Care [facility] 1.114 350.1.13.10 4.2.7.2.686 [id number] [facility] 2021-11-15 18:40:00 2021-11-15 19:07:56 Outpatient R [facility] [id number] [facility] 2021-11-15 18:40:00 2021-11-15 19:07:56 Urgent Care [facility] 1.114 350.1.13.10 4.2.7.2.686 [id number] [facility] 2021-09-23 00:00:00 2021-09-23 00:00:00 Orders Only Doctor Unassigned, Plaza [facility] 1.2.114 350.1.13.10 4.2.7.2.686 [id number] [facility] 2021-09-22 13:30:00 2021-09-22 13:56:59 Office Visit Robyn Jessica [facility] 1..114 350.1.13.10 4.2.7.2.686 [id number] [facility] 2021-09-22 13:30:00 2021-09-22 13:56:59 Outpatient R JESSICA CARLSON [facility] [id number] [facility] 2021-09-22 13:30:00 2021-09-22 13:30:00 Outpatient R JESSICA CARLSON [facility] [id number] [facility] 2021-09-22 13:30:00 2021-09-22 13:30:00 Outpatient R JESSICA CARLSON [facility] [id number] [facility] 2021-09-15 14:15:00 2021-09-15 14:50:37 Outpatient R JESSICA CARLSON [facility] [id number] [facility] 2021-09-15 14:15:00 2021-09-15 14:50:37 Office Visit Jessica Carlson [facility] BUILDING 1.84.114 350.1.13.10 4.2.7.2.686 [id number] [facility] 2021-09-15 00:00:00 2021-09-15 00:00:00 Letter (Out) Robyn Jessica [facility] BUILDING 1.2.114 350.1.13.10 4.2.7.2.686 [id number] [facility] 2021-09-08 13:00:00 2021-09-08 14:16:30 Outpatient R JESSICA CARLSON [facility] [id number] [facility] 2021-09-08 13:00:00 2021-09-08 14:16:30 Office Visit Jessica Carlson [facility] 1.2.840.114 350.1.13.10 4.2.7.2.686 [id number] [facility] 2021-09-08 00:00:00 2021-09-08 00:00:00 Letter (Out) Jessica Carlson [facility] 1.2.840.114 350.1.13.10 4.2.7.2.686 [id number] [facility] 2021-09-01 13:14:00 2021-09-01 14:35:00 Emergency X CARYN SAWYER [facility] ERT [id number] [facility] 2021-09-01 13:14:00 2021-09-01 14:35:[address] 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 1.284.114 350.1.13.10 4.2.7.2.686 [id number] [facility] 2021-08-09 15:20:00 2021-08-09 15:50:19 Outpatient R YENIFER ODONNELLTANY [facility] [id number] [facility] 2021-08-09 15:20:00 2021-08-09 15:50:19 Urgent Care Jose Blunt Vinod Pending sale to [facility] JOSEPHINE?CHRISTI [facility] BUILD[facility] 1.284.114 350.1.13.10 4.2.7.2.686 [id number] [facility] 2021-07-30 00:00:00 2021-07-30 00:00:00 Letter (Out) Marleen Taylor [facility] 1.284.114 350.1.13.10 4.2.7.2.686 [id number] [facility] 2021-07-29 00:00:00 2021-07-29 00:00:00 Telephone Yenifer Odonnelltany [facility] 1.284.114 350.1.13.10 4.2.7.2.686 [id number] [facility] 2021-07-28 13:15:00 2021-07-28 13:30:00 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 Lab, Sacha Rodas Misty [facility] 1.284.114 350.1.13.10 4.2.7.2.686 [id number] [facility] 2021-07-28 12:40:00 2021-07-28 12:40:00 Urgent Care Sallie Odonnell [facility] JOSEPHINE?CHRISTI [facility] OFF[facility] BUILD[facility] 1.84114 350.1.13.10 4.2.7.2.686 [id number] [facility] 2021-07-28 12:40:00 2021-07-28 12:36:35 Outpatient R MISTY RODAS [facility] [id number] [facility] 2021-07-19 18:00:00 2021-07-19 18:20:00 Urgent Care Jose Raul [facility] JO[facility]PHINE[facility] 1.84114 350.1.13.10 4.2.7.2.686 [id number] [facility] 2021-07-19 18:00:00 2021-07-19 18:00:00 Outpatient R JOSE RAUL JOSE [facility] [id number] [facility] 2021-07-12 13:20:00 2021-07-12 14:05:05 Outpatient R UNKNOWN, ATTENDING [facility] [id number] [facility] 2021-07-12 13:20:00 2021-07-12 13:40:00 Urgent Care Sallie Odonnell Unknown, Attending [facility] 1.84114 350.1.13.10 4.2.7.2.686 [id number] [facility] 2021-07-12 00:00:00 2021-07-12 00:00:00 Letter (Out) Sallie [facility]donnell [facility] 1.84114 350.1.13.10 4.2.7.2.686 [id number] [facility] 2021-06-29 00:00:00 2021-06-29 00:00:00 Patient Secure Msg Doctor Unassigned, Plaza [facility] 1.114 350.1.13.10 4.2.7.2.686 [id number] [facility] 2021-03-19 00:00:00 2021-03-19 00:00:00 Refill VinodSallie harris [facility] Office Building One 1.114 350.1.13.10 4.2.7.2.686 [id number] [facility] 2021-02-23 00:00:00 2021-02-23 00:00:00 Patient Secure Msg Doctor Unassigned, Plaza [facility] 1.114 350.1.13.10 4.2.7.2.686 [id number] [facility] 2021-02-22 17:39:00 2021-02-22 18:42:22 [facility] 1.114 350.1.13.10 4.2.7.2.686 [id number] [facility] 2021-02-22 17:40:00 2021-02-22 17:40:00 Outpatient R AFIA SYLVESTER [facility] [id number] [facility] 2021-02-20 09:45:52 2021-02-20 10:14:45 Urgent Care VinodYeniferSallie Song, [facility] Office Building One 1.114 350.1.13.10 4.2.7.2.686 [id number] [facility] 2021-02-20 10:00:00 2021-02-20 10:00:00 Outpatient R JOSE BLUNT [facility] [id number] [facility] 2021-02-20 00:00:00 2021-02-20 00:00:00 Telephone Funmilayo Young [facility] 1.114 350.1.13.10 4.2.7.2.686 [id number] [facility] 2021-01-04 10:39:25 2021-01-04 10:59:25 Laboratory Only Lab, [facility] Hien Gill [facility] Office Building One .114 350.1.13.10 4.2.7.2.686 [id number] [facility] 2021-01-04 10:40:00 2021-01-04 10:40:00 [facility] [id number] [facility] 2021-01-04 00:00:00 2021-01-04 00:00:00 Letter (Out) Doctor Unassigned, Plaza [facility] 1.0.114 350.1.13.10 4.2.7.2.686 [id number] [facility] 2021-01-04 00:00:00 2021-01-04 00:00:00 Orders Only Doctor Unassigned, Plaza [facility] 1.840.114 350.1.13.10 4.2.7.2.686 [id number] [facility] 2021-01-04 00:00:00 2021-01-04 00:00:00 Letter (Out) Doctor Unassigned, Plaza [facility] 1.840.114 350.1.13.10 4.2.7.2.686 [id number] [facility] 2020-08-04 16:42:40 2020-08-04 17:02:40 Laboratory Only Lab, Adc [facility] I Afia Sylvester [facility] Office Building One .114 350.1.13.10 4.2.7.2.686 [id number] [facility] 2020-08-04 17:00:00 2020-08-04 17:00:00 Outpatient R AFIA SYLVESTER [facility] [id number] [facility] 2020-08-04 00:00:00 2020-08-04 00:00:00 Letter (Out) Doctor Unassigned, Plaza [facility] 1.0.114 350.1.13.10 4.2.7.2.686 [id number] [facility] 2020-06-08 00:00:00 2020-06-08 00:00:00 Telephone Provider, [facility] Urgent Care [facility] Office Building One 1.114 350.1.13.10 4.2.7.2.686 [id number] [facility] 2020-06-06 18:14:21 2020-06-06 18:34:21 Laboratory Only Lab, Adc Fam Pob I Clark [facility] Office Building One 1.114 350.1.13.10 4.2.7.2.686 [id number] [facility] 2020-06-06 18:20:00 2020-06-06 18:20:00 Outpatient R CLARK MISTY [facility] [id number] [facility] 2020-05-30 00:00:00 2020-05-30 00:00:00 Telephone Pcp, Patient Does Not Have A [facility] Office Building One 1.114 350.1.13.10 4.2.7.2.686 [id number] [facility] 2020-05-27 00:00:00 2020-05-27 00:00:00 Letter (Out) Marleen Taylor [facility] 1.114 350.1.13.10 4.2.7.2.686 [id number] [facility] 2020-05-25 19:03:57 2020-05-25 19:23:57 Laboratory Only Lab, Adc Fam Pob Chelsea Malone [facility] One 1.2.840.114 350.1.13.10 4.2.7.2.686 [id number] [facility] Results Test Description Test Time Test Comments Results Result Co mments Source ENVIRONMENTAL IgE [id number] 18:55:14* Test Item Value Reference Range Interpretation Comme nts D. PTERONYSSINUS IgE (test c ode = 12235) <0.10 KU/L <0.35 D. PTERONYS. CLASS (test cod e = 40881) 0 D. FARINAE IgE (test code = 98405) <0.10 KU/L <0.35 D. FARINAE CLASS (test code = 69592) 0 CAT EPITHELIUM IgE (test cod e = 56580) <0.10 KU/L <0.35 CAT EPITHELIUM CLASS (test c ode = 29314) 0 DOG DANDER IgE (test code = 04295) 0.28 KU/L <0.35 DOG DANDER CLASS (test code = 37530) 0/1 COCKROACH, SAUDI ARABIAN IgE (test code = 07780) <0.10 KU/L <0.35 COCKROACH, GRMN CLS (test co de = 83474) 0 CHICKEN FEATHERS IgE (test c ode = 96639) <0.10 KU/L <0.35 CHICKEN FEATHER CLS (test co de = 89101) 0 GOOSE FEATHERS IgE (test cod e = 03074) <0.10 KU/L <0.35 GOOSE FEATHERS CLASS (test c ode = 17578) 0 CPL [id number] 13:26:39* Test Item Value Reference Range Interpretation Comme nts INTERPRETATION: (test code = 1990) (NOTE) CLASS RANGE( ku/L) INTERPRETATION 0 <0.10 Normal, no specific IgE identified 0/1 0.10-0.34 Equivocal, indeterminate significance 1 0.35-0.69 Low level specific IgE 2 0.70-3.49 Moderate level specific IgE 3 3.50-17.49 High level specific IgE 4 17.50-49.99 Very high levels 5 50.00-99.99 of specific IgE 6 >=100.00 antibodies Note: Test results reflect expanded analytic measurable range. Allergen specific IgE values of 0.10-0.34 kU/L (class 0/1) are of indeterminate significance and may require specific clinical expertise for interpretation. Other than peanut and peanut components, values in this range will not be reported with out of range flagging. Testing performed on DISKOVRe using ImmunoCAP Specific IgE reagents. * If Antibodies are followed by an asterisk (*) they have been developed and their performance characteristics determined by [facility] ([facility]). They have not been cleared or approved by the U.S. Food and Drug Administration (FDA). The FDA has determined that such clearance or approval is not necessary. These assays are intended to be used for clinical purposes. Analyte specific reagents were used. They should not be regarded as investigational or for research. [facility] is regulated under the Clinical Laboratory Improvement Amendments of 1988 (CLIA) as qualified to perform high complexity clinical testing. UNLESS OTHERWISE INDICATED, ALL TESTING PERFORMED AT [facility] [address] [place] [address] TIRE BUILDER: KATIE BENTLEY M.D. CLIA NUMBER [id number] [facility] [place]. [id number] FSH + LH [id number] 03:44:06* Test Item Value Reference Range Interpretation Comme nts FOLLICLE STIM HORMONE (test code = 2700) 2.3 IU/L SEE BELOW EXPEC ELLIE VALUES FOR FSH FOR FEMALES >17 YEARS FOLLICULAR 3.5-12.5 IU/L MID-CYCLE PEAK 4.7-21.5 IU/L LUTEAL PHASE 1.7-7.7 IU/L POSTMENOPAUSAL 25.8-134.8 IU/L LUTEINIZING HORMONE (test code = 2776) 13.0 IU/L SEE BELOW EXPEC ELLIE VALUES FOR LH FOR FEMALES >17 YEARS MALES FEMALES >=18 YEARS 1.8-8.6 IU/L FOLLICULAR 2.4-12.6 IU/L MID-CYCLE PEAK 14.0-95.6 IU/L LUTEAL PHASE 1.0-11.4 IU/L POSTMENOPAUSAL 7.7-58.5 IU/L [id number] 03:44:06* Test Item Value Reference Range Interpretation Comme [facility] PROLACTIN (test code = 2800) 31.2 NG/ML 5.0-37.0 NOTE: Methodolog y is Shakira Kai Electrochemiluminescence Immunoassay (ECLIA). Values obtained with different assays/manufacturers cannot be used interchangeably. Results should not be used as sole basis to establish the presence or absence of malignancy. UNLESS OTHERWISE INDICATED, ALL TESTING PERFORMED AT [facility] [address] [place] [address] TIRE BUILDER: KATIE BENTLEY M.D. CLIA NUMBER [id number] [place]. [id number] FSH + LH [id number] 00:00:00* Test Item Value Reference Range Interpretation Comme [facility] FOLLICLE STIM HORMONE (test code = 2700) 2.3 IU/L LUTEINIZING HORMONE (test co de = 2776) 13.0 IU/L Lisandro [id number] 00:00:00* Test Item Value Reference Range Interpretation Comme [facility] PROLACTIN (test code = 2800) 31.2 NG/ML Lisandro FrancoVITAMIN D, 25 [id number] 05:33:27* Test Item Value Reference Range Interpretation Comme [facility] VITAMIN D, 25 OH (test code = 4958) 20 NG/ML SEE BELOW L NOTE: 25-HYDR OXYVITAMIN D ASSAY INCLUDES 25-HYDROXYVITAMIN D2 AND D3. INTERPRETIVE RANGES PEDIATRIC (<17 YEARS) . . . . . . . . . . . NG/ML 20-100ADULT: INSUFFICIENT . . . . . . . . . . . . . . NG/ML <20 SUBOPTIMAL . . . . . . . . . . . . . . . NG/ML 20-29 OPTIMAL . . . . . . . . . . . . . . . . . NG/ML 30-100 VITAMIN [id number] 05:33:27* Test Item Value Reference Range Interpretation Comme [facility] VITAMIN B-12 (test code = 2840) 841 PG/ML 200-950 UNLESS OTHERWISE INDICATED, ALL TESTING PERFORMED AT [facility] [address] [place] [address] TIRE BUILDER: KATIE BENTLEY M.D. CLIA NUMBER [id number] [place]. [id number] TSH, THIRD [id number] 05:33:15* Test Item Value Reference Range Interpretation Comme nts TSH, THIRD GENERATION (test code = 2821) 1.350 UIU/ML 0.400-4.100 TSH, THIRD [id number] 00:00:00* Test Item Value Reference Range Interpretation Comme nts TSH, THIRD GENERATION (test code = 2821) 1.350 UIU/ML Lisandro FrancoVITAMIN D, 25 [id number] 00:00:00* Test Item Value Reference Range Interpretation Comme nts VITAMIN D, 25 OH (test code = 4958) 20 NG/ML Lisandro FrancoVITAMIN [id number] 00:00:00* Test Item Value Reference Range Interpretation Comme nts VITAMIN B-12 (test code = 2840) 841 PG/ML Lisandro LunaH, THIRD [id number] 00:00:00* Test Item Value Reference Range Interpretation Comme nts TSH, THIRD GENERATION (test code = 2821) 1.350 UIU/ML Lisandro FrancoVITAMIN D, 25 [id number] 00:00:00* Test Item Value Reference Range Interpretation Comme nts VITAMIN D, 25 OH (test code = 4958) 20 NG/ML Lisandro Huynh AustinVITAMIN [id number] 00:00:00* Test Item Value Reference Range Interpretation Comme nts VITAMIN B-12 (test code = 2840) 841 PG/ML Lisandro LunaH, THIRD [id number] 00:00:00* Test Item Value Reference Range Interpretation Comme nts TSH, THIRD GENERATION (test code = 2821) 1.350 UIU/ML Lisandro FrancoVITAMIN D, 25 [id number] 00:00:00* Test Item Value Reference Range Interpretation Comme nts VITAMIN D, 25 OH (test code = 4958) 20 NG/ML Lisandro Huynh AustinVITAMIN [id number] 00:00:00* Test Item Value Reference Range Interpretation Comme nts VITAMIN B-12 (test code = 2840) 841 PG/ML Lisandro FrancoLIPID [id number] 05:43:55* Test Item Value Reference Range Interpretation Comme nts CHOLESTEROL (test code = 2210) 190 MG/DL <200 TRIGLYCERIDES (test code = 2232) 100 MG/DL <150 HDL CHOLESTEROL (test code = 2220) 48 MG/DL >39 CALC LDL CHOL (test code = 223) 121 MG/DL <100 H NOTE: CALCULATED LDL IS BASED ON MYESHA-MANDUJANO METHOD WHICHINCLUDES ADJUSTABLE TRIGLYCERIDE:VLDL CHOLESTEROL RATIO.THIS FACTOR VARIES BY MEASURED TRIGLYCERIDE AND NON-HDLCHOLESTEROL CONCENTRATIONS WITH INCREASED CALCULATED LDL SEENIN HIGHER TRIGLYCERIDE OR LOWER NON-HDL SPECIMENS. FOR MOREINFORMATION, SEE CLIENT ANNOUNCEMENT AT [email or web address] RISK RATIO LDL/HDL (test code = 223) 2.52 RATIO <3.22 LABS DRAWN BY [facility] METABOLIC [id number] 05:43:55* Test Item Value Reference Range Interpretation Comme nts GLUCOSE (test code = 2216) 89 MG/DL 70-99 BUN (test code = 2207) 9 MG/DL 6-20 CREATININE (test code = 2213) 0.76 MG/DL 0.60-1.30 eGFR (2020 CKD-EPI) (test code = 29079) 114 ML/MIN/1.73 >60 CALC BUN/CREAT (test code = 2234) 12 RATIO 6-28 SODIUM (test code = 2230) 140 MEQ/L 133-146 POTASSIUM (test code = 222) 4.1 MEQ/L 3.5-5.4 CHLORIDE (test code = 2215) 101 MEQ/L 95-107 CARBON DIOXIDE (test code = 2206) 27 MEQ/L 19-31 CALCIUM (test code = 2208) 9.8 MG/DL 8.5-10.5 PROTEIN, TOTAL (test code = 2228) 7.4 G/DL 6.1-8.3 ALBUMIN (test code = 2200) 4.6 G/DL 3.5-5.2 CALC GLOBULIN (test code = 2240) 2.8 G/DL 1.9-3.7 CALC A/G RATIO (test code = 223) 1.6 RATIO 1.0-2.6 BILIRUBIN, TOTAL (test code = 2206) 0.3 MG/DL <=1.2 ALKALINE PHOSPHATASE (test code = 2203) 86 U/L 39-117 AST (test code = 8) 12 U/L 9-40 ALT (test code = 221) 11 U/L 5-40 LABS DRAWN BY [facility], THIRD [id number] 04:49:56* Test Item Value Reference Range Interpretation Comme [facility] TSH, THIRD GENERATION (test code = 2821) 1.230 UIU/ML 0.400-4.100 LABS DRAWN BY [facility], [id number] 04:49:56* Test Item Value Reference Range Interpretation Comme [facility] HCG, QUANTITATIVE (test code = 2506) <5 MIU/ML SEE BELOW EXPEC ELLIE VALUES FOR HCG GST.AGE UNITS RANGE GST. AGE UNITS RANGE3 WEEKS MIU/ML 6-71 10 WEEKS MIU/ML 46,509-186,9774 WEEKS MIU/ML 10-750 12 WEEKS MIU/ML 27,832-210,6125 WEEKS MIU/ML 217-7,138 14 WEEKS MIU/ML 13,950-62,5306 WEEKS MIU/ML 158-31,795 15 WEEKS MIU/ML 12,039-70,9717 WEEKS MIU/ML 3,697-163,563 16 WEEKS MIU/ML 9,040-56,4518 WEEKS MIU/ML 32,065-149,571 17 WEEKS MIU/ML 8,175-55,8689 WEEKS MIU/ML 63,803-151,410 18 WEEKS MIU/ML 8,099-58,176MALES and NON- FEMALES . . . . . . . . MIU/ML 5-8IPHM-MJCLFIMLCT FEMALES . . . . . . . . . . . . MIU/ML <=7 UNLESS OTHERWISE INDICATED, ALL TESTING PERFORMED AT [facility] [address] [place] [id number] TIRE BUILDER: KATIE BENTLEY M.D. CLIA NUMBER [id number] [facility] [place]. [id number] LABS DRAWN BY HEMOGLOBIN [id number] 02:45:34* Test Item Value Reference Range Interpretation Comme [facility] HEMOGLOBIN A1c (test code = 69050) 5.9 % 4.2-5.6 H [employer] GUIDELINES FOR HGB A1C: PREDIABETES/INCREASED RISK . . . . . . . 5.7-6.4% DIAGNOSIS OF DIABETES . . . . . . . . . >=6.5% WITH CONFIRMATION OR APPROPRIATE SYMPTOMS NOTE: ASSAY MAY BE AFFECTED BY HEMOGLOBINOPATHIES (SICKLE CELL ANEMIA, S-C DISEASE, OTHERS) OR ARTIFICIALLY LOWERED BY DECREASED RED CELL SURVIVAL (HEMOLYTIC ANEMIAS, BLOOD LOSS, ETC.). CONSIDER ALTERNATE TESTING OR LABORATORY CONSULTATION. LABS DRAWN BY [facility], THIRD [id number] 00:00:00* Test Item Value Reference Range Interpretation Comme [facility] TSH, THIRD GENERATION (test code = 2821) 1.230 UIU/ML Lisandro FrancoLIPID [id number] 00:00:00* Test Item Value Reference Range Interpretation Comme nts CHOLESTEROL (test code = 2210) 190 MG/DL TRIGLYCERIDES (test code = 2232) 100 MG/DL HDL CHOLESTEROL (test code = 2220) 48 MG/DL CALC LDL CHOL (test code = 2237) 121 MG/DL RISK RATIO LDL/HDL (test cod e = 2238) 2.52 RATIO Lisandro FrancoHCG, [id number] 00:00:00* Test Item Value Reference Range Interpretation Comme nts HCG, QUANTITATIVE (test code = 2506) <5 MIU/ML Lisandro FrancoHEMOGLOBIN [id number] 00:00:00* Test Item Value Reference Range Interpretation Comme nts HEMOGLOBIN A1c (test code = 60880) 5.9 % Lisandro FrancoCOMPREHENSIVE METABOLIC [id number] 00:00:00* Test Item Value Reference Range Interpretation Comme nts GLUCOSE (test code = 2217) 89 MG/DL BUN (test code = 2208) 9 MG/DL CREATININE (test code = 2214) 0.76 MG/DL eGFR (2020 CKD-EPI) (test code = 48266) 114 ML/MIN/1.73 CALC BUN/CREAT (test code = 2235) 12 RATIO SODIUM (test code = 2231) 140 MEQ/L POTASSIUM (test code = 2228) 4.1 MEQ/L CHLORIDE (test code = 2215) 101 MEQ/L CARBON DIOXIDE (test code = 2206) 27 MEQ/L CALCIUM (test code = 2209) 9.8 MG/DL PROTEIN, TOTAL (test code = 2229) 7.4 G/DL ALBUMIN (test code = 2201) 4.6 G/DL CALC GLOBULIN (test code = 2240) 2.8 G/DL CALC A/G RATIO (test code = 2234) 1.6 RATIO BILIRUBIN, TOTAL (test code = 2207) 0.3 MG/DL ALKALINE PHOSPHATASE (test code = 2204) 86 U/L AST (test code = 2218) 12 U/L ALT (test code = 2219) 11 U/L Lisandro FrancoTSH, THIRD [id number] 00:00:00* Test Item Value Reference Range Interpretation Comme bridger TSH, THIRD GENERATION (test code = 2821) 1.230 UIU/ML Lisandro FrancoLIPID [id number] 00:00:00* Test Item Value Reference Range Interpretation Comme nts CHOLESTEROL (test code = 2210) 190 MG/DL TRIGLYCERIDES (test code = 2232) 100 MG/DL HDL CHOLESTEROL (test code = 2220) 48 MG/DL CALC LDL CHOL (test code = 2237) 121 MG/DL RISK RATIO LDL/HDL (test cod e = 2238) 2.52 RATIO Lisandro FrancoHCG, [id number] 00:00:00* Test Item Value Reference Range Interpretation Comme bridger HCG, QUANTITATIVE (test code = 2506) <5 MIU/ML Lisandro FrancoHEMOGLOBIN [id number] 00:00:00* Test Item Value Reference Range Interpretation Comme bridger HEMOGLOBIN A1c (test code = 57467) 5.9 % Lisandro FrancoCOMPREHENSIVE METABOLIC [id number] 00:00:00* Test Item Value Reference Range Interpretation Comme nts GLUCOSE (test code = 2217) 89 MG/DL BUN (test code = 2208) 9 MG/DL CREATININE (test code = 2214) 0.76 MG/DL eGFR (2020 CKD-EPI) (test code = 68137) 114 ML/MIN/1.73 CALC BUN/CREAT (test code = 2235) 12 RATIO SODIUM (test code = 2231) 140 MEQ/L POTASSIUM (test code = 2228) 4.1 MEQ/L CHLORIDE (test code = 2215) 101 MEQ/L CARBON DIOXIDE (test code = 2206) 27 MEQ/L CALCIUM (test code = 2209) 9.8 MG/DL PROTEIN, TOTAL (test code = 2229) 7.4 G/DL ALBUMIN (test code = 2201) 4.6 G/DL CALC GLOBULIN (test code = 2240) 2.8 G/DL CALC A/G RATIO (test code = 2234) 1.6 RATIO BILIRUBIN, TOTAL (test code = 2207) 0.3 MG/DL ALKALINE PHOSPHATASE (test code = 2204) 86 U/L AST (test code = 2218) 12 U/L ALT (test code = 2219) 11 U/L Lisandro FrancoTSH, THIRD [id number] 00:00:00* Test Item Value Reference Range Interpretation Comme bridger TSH, THIRD GENERATION (test code = 2821) 1.230 UIU/ML Lisandro FrancoLIPID [id number] 00:00:00* Test Item Value Reference Range Interpretation Comme nts CHOLESTEROL (test code = 2210) 190 MG/DL TRIGLYCERIDES (test code = 2232) 100 MG/DL HDL CHOLESTEROL (test code = 2220) 48 MG/DL CALC LDL CHOL (test code = 2237) 121 MG/DL RISK RATIO LDL/HDL (test cod e = 2238) 2.52 RATIO Lisandro FrancoHCG, [id number] 00:00:00* Test Item Value Reference Range Interpretation Comme bridger HCG, QUANTITATIVE (test code = 2506) <5 MIU/ML Lisandro FrancoHEMOGLOBIN [id number] 00:00:00* Test Item Value Reference Range Interpretation Comme bridger HEMOGLOBIN A1c (test code = 25699) 5.9 % Lisandro FrancoCOMPREHENSIVE METABOLIC [id number] 00:00:00* Test Item Value Reference Range Interpretation Comme nts GLUCOSE (test code = 2217) 89 MG/DL BUN (test code = 2208) 9 MG/DL CREATININE (test code = 2214) 0.76 MG/DL eGFR (2020 CKD-EPI) (test code = 05190) 114 ML/MIN/1.73 CALC BUN/CREAT (test code = 2235) 12 RATIO SODIUM (test code = 2231) 140 MEQ/L POTASSIUM (test code = 2228) 4.1 MEQ/L CHLORIDE (test code = 2215) 101 MEQ/L CARBON DIOXIDE (test code = 2206) 27 MEQ/L CALCIUM (test code = 2209) 9.8 MG/DL PROTEIN, TOTAL (test code = 2229) 7.4 G/DL ALBUMIN (test code = 2201) 4.6 G/DL CALC GLOBULIN (test code = 2240) 2.8 G/DL CALC A/G RATIO (test code = 2234) 1.6 RATIO BILIRUBIN, TOTAL (test code = 2207) 0.3 MG/DL ALKALINE PHOSPHATASE (test code = 2204) 86 U/L AST (test code = 2218) 12 U/L ALT (test code = 2219) 11 U/L Lisandro FrancoTSH, THIRD [id number] 00:00:00* Test Item Value Reference Range Interpretation Comme nts TSH, THIRD GENERATION (test code = 2821) 1.230 UIU/ML Lisandro FrancoLIPID [id number] 00:00:00* Test Item Value Reference Range Interpretation Comme nts CHOLESTEROL (test code = 2210) 190 MG/DL TRIGLYCERIDES (test code = 2232) 100 MG/DL HDL CHOLESTEROL (test code = 2220) 48 MG/DL CALC LDL CHOL (test code = 2237) 121 MG/DL RISK RATIO LDL/HDL (test cod e = 2238) 2.52 RATIO Lisandro FrancoHCG, [id number] 00:00:00* Test Item Value Reference Range Interpretation Comme bridger HCG, QUANTITATIVE (test code = 2506) <5 MIU/ML Lisandro FrancoHEMOGLOBIN [id number] 00:00:00* Test Item Value Reference Range Interpretation Comme nts HEMOGLOBIN A1c (test code = 68962) 5.9 % Lisandro FrancoCOMPREHENSIVE METABOLIC [id number] 00:00:00* Test Item Value Reference Range Interpretation Comme nts GLUCOSE (test code = 2217) 89 MG/DL BUN (test code = 2208) 9 MG/DL CREATININE (test code = 2214) 0.76 MG/DL eGFR (2020 CKD-EPI) (test code = 32215) 114 ML/MIN/1.73 CALC BUN/CREAT (test code = 2235) 12 RATIO SODIUM (test code = 2231) 140 MEQ/L POTASSIUM (test code = 2228) 4.1 MEQ/L CHLORIDE (test code = 2215) 101 MEQ/L CARBON DIOXIDE (test code = 2206) 27 MEQ/L CALCIUM (test code = 2209) 9.8 MG/DL PROTEIN, TOTAL (test code = 2229) 7.4 G/DL ALBUMIN (test code = 2201) 4.6 G/DL CALC GLOBULIN (test code = 2240) 2.8 G/DL CALC A/G RATIO (test code = 2234) 1.6 RATIO BILIRUBIN, TOTAL (test code = 2207) 0.3 MG/DL ALKALINE PHOSPHATASE (test code = 2204) 86 U/L AST (test code = 2218) 12 U/L ALT (test code = 2219) 11 U/L Lisandro FrancoTSH, THIRD [id number] 00:00:00* Test Item Value Reference Range Interpretation Comme nts TSH, THIRD GENERATION (test code = 2821) 1.230 UIU/ML Lisandro FrancoLIPID [id number] 00:00:00* Test Item Value Reference Range Interpretation Comme nts CHOLESTEROL (test code = 2210) 190 MG/DL TRIGLYCERIDES (test code = 2232) 100 MG/DL HDL CHOLESTEROL (test code = 2220) 48 MG/DL CALC LDL CHOL (test code = 2237) 121 MG/DL RISK RATIO LDL/HDL (test cod e = 2238) 2.52 RATIO Lisandro FrancoHCG, [id number] 00:00:00* Test Item Value Reference Range Interpretation Comme nts HCG, QUANTITATIVE (test code = 2506) <5 MIU/ML Lisandro FrancoHEMOGLOBIN [id number] 00:00:00* Test Item Value Reference Range Interpretation Comme nts HEMOGLOBIN A1c (test code = 01174) 5.9 % Lisandro FarncoCOMPREHENSIVE METABOLIC [id number] 00:00:00* Test Item Value Reference Range Interpretation Comme nts GLUCOSE (test code = 2217) 89 MG/DL BUN (test code = 2208) 9 MG/DL CREATININE (test code = 2214) 0.76 MG/DL eGFR (2020 CKD-EPI) (test code = 91368) 114 ML/MIN/1.73 CALC BUN/CREAT (test code = 2235) 12 RATIO SODIUM (test code = 2231) 140 MEQ/L POTASSIUM (test code = 2228) 4.1 MEQ/L CHLORIDE (test code = 2215) 101 MEQ/L CARBON DIOXIDE (test code = 2206) 27 MEQ/L CALCIUM (test code = 2209) 9.8 MG/DL PROTEIN, TOTAL (test code = 2229) 7.4 G/DL ALBUMIN (test code = 2201) 4.6 G/DL CALC GLOBULIN (test code = 2240) 2.8 G/DL CALC A/G RATIO (test code = 2234) 1.6 RATIO BILIRUBIN, TOTAL (test code = 2207) 0.3 MG/DL ALKALINE PHOSPHATASE (test code = 2204) 86 U/L AST (test code = 2218) 12 U/L ALT (test code = 2219) 11 U/L Lisandro FrancoTSH, THIRD [id number] 00:00:00* Test Item Value Reference Range Interpretation Comme nts TSH, THIRD GENERATION (test code = 2821) 1.230 UIU/ML Lisandro FrancoLIPID [id number] 00:00:00* Test Item Value Reference Range Interpretation Comme nts CHOLESTEROL (test code = 2210) 190 MG/DL TRIGLYCERIDES (test code = 2232) 100 MG/DL HDL CHOLESTEROL (test code = 2220) 48 MG/DL CALC LDL CHOL (test code = 2237) 121 MG/DL RISK RATIO LDL/HDL (test cod e = 2238) 2.52 RATIO Lisandro FrancoHCG, [id number] 00:00:00* Test Item Value Reference Range Interpretation Comme bridger HCG, QUANTITATIVE (test code = 2506) <5 MIU/ML Lisandro FrancoHEMOGLOBIN [id number] 00:00:00* Test Item Value Reference Range Interpretation Comme nts HEMOGLOBIN A1c (test code = 61257) 5.9 % Lisandro FrancoCOMPREHENSIVE METABOLIC [id number] 00:00:00* Test Item Value Reference Range Interpretation Comme nts GLUCOSE (test code = 2217) 89 MG/DL BUN (test code = 2208) 9 MG/DL CREATININE (test code = 2214) 0.76 MG/DL eGFR (2020 CKD-EPI) (test code = 11238) 114 ML/MIN/1.73 CALC BUN/CREAT (test code = 2235) 12 RATIO SODIUM (test code = 2231) 140 MEQ/L POTASSIUM (test code = 2228) 4.1 MEQ/L CHLORIDE (test code = 2215) 101 MEQ/L CARBON DIOXIDE (test code = 2206) 27 MEQ/L CALCIUM (test code = 2209) 9.8 MG/DL PROTEIN, TOTAL (test code = 2229) 7.4 G/DL ALBUMIN (test code = 2201) 4.6 G/DL CALC GLOBULIN (test code = 2240) 2.8 G/DL CALC A/G RATIO (test code = 2234) 1.6 RATIO BILIRUBIN, TOTAL (test code = 2207) 0.3 MG/DL ALKALINE PHOSPHATASE (test code = 2203) 86 U/L AST (test code = 2217) 12 U/L ALT (test code = 221) 11 U/L Lisandro Huynh AustinVARICELLA ZOSTER [id number] 00:00:00* Test Item Value Reference Range Interpretation Comme nts VARICELLA ZOSTER IgG (test c ode = 83031) 230 INDEX Lisandro F AustinRUBEOLA IgG [id number] 00:00:00* Test Item Value Reference Range Interpretation Comme nts RUBEOLA AB, IgG (test code = 06835) 131.0 AU/ML Lisandro F AustinMUMPS VIRUS [id number] 00:00:00* Test Item Value Reference Range Interpretation Comme nts MUMPS VIRUS AB, IgG (test co de = 4585) 59.3 AU/ML Lisandro F AustinHEPATITIS B SURFACE [id number] 00:00:00* Test Item Value Reference Range Interpretation Comme nts HEPATITIS B SURFACE AB (test code = 2737) REACTIVE Lisandro F AustinVARICELLA ZOSTER [id number] 00:00:00* Test Item Value Reference Range Interpretation Comme nts VARICELLA ZOSTER IgG (test c ode = 05348) 230 INDEX Lisandro F AustinRUBEOLA IgG [id number] 00:00:00* Test Item Value Reference Range Interpretation Comme nts RUBEOLA AB, IgG (test code = 83279) 131.0 AU/ML Lisandro F AustinMUMPS VIRUS [id number] 00:00:00* Test Item Value Reference Range Interpretation Comme nts MUMPS VIRUS AB, IgG (test co de = 4585) 59.3 AU/ML Lisandro F AustinHEPATITIS B SURFACE [id number] 00:00:00* Test Item Value Reference Range Interpretation Comme nts HEPATITIS B SURFACE AB (test code = 2737) REACTIVE Lisandro Huynh AustinVARICELLA ZOSTER [id number] 00:00:00* Test Item Value Reference Range Interpretation Comme nts VARICELLA ZOSTER IgG (test c ode = 53966) 230 INDEX Lisandro Huynh AustinRUBEOLA IgG [id number] 00:00:00* Test Item Value Reference Range Interpretation Comme nts RUBEOLA AB, IgG (test code = 32045) 131.0 AU/ML Lisandro Huynh AustinMUMPS VIRUS [id number] 00:00:00* Test Item Value Reference Range Interpretation Comme nts MUMPS VIRUS AB, IgG (test co de = 4585) 59.3 AU/ML Lisandro Huynh AustinHEPATITIS B SURFACE [id number] 00:00:00* Test Item Value Reference Range Interpretation Comme nts HEPATITIS B SURFACE AB (test code = 2737) REACTIVE Lisandro Huynh AustinVARICELLA ZOSTER [id number] 00:00:00* Test Item Value Reference Range Interpretation Comme nts VARICELLA ZOSTER IgG (test c ode = 33142) 230 INDEX Lisandro Huynh AustinRUBEOLA IgG [id number] 00:00:00* Test Item Value Reference Range Interpretation Comme nts RUBEOLA AB, IgG (test code = 72852) 131.0 AU/ML Lisandro Huynh AustinMUMPS VIRUS [id number] 00:00:00* Test Item Value Reference Range Interpretation Comme nts MUMPS VIRUS AB, IgG (test co de = 4585) 59.3 AU/ML Lisandro Huynh AustinHEPATITIS B SURFACE [id number] 00:00:00* Test Item Value Reference Range Interpretation Comme nts HEPATITIS B SURFACE AB (test code = 2737) REACTIVE Lisandro Huynh AustinVARICELLA ZOSTER [id number] 00:00:00* Test Item Value Reference Range Interpretation Comme nts VARICELLA ZOSTER IgG (test c ode = 16396) 230 INDEX Lisandro Huynh AustinRUBEOLA IgG [id number] 00:00:00* Test Item Value Reference Range Interpretation Comme nts RUBEOLA AB, IgG (test code = 92537) 131.0 AU/ML Lisandro Huynh AustinMUMPS VIRUS [id number] 00:00:00* Test Item Value Reference Range Interpretation Comme nts MUMPS VIRUS AB, IgG (test co de = 4585) 59.3 AU/ML Lisandro Huynh AustinHEPATITIS B SURFACE [id number] 00:00:00* Test Item Value Reference Range Interpretation Comme nts HEPATITIS B SURFACE AB (test code = 2737) REACTIVE Lisandro FrancoVARICELLA ZOSTER [id number] 00:00:00* Test Item Value Reference Range Interpretation Comme nts VARICELLA ZOSTER IgG (test c ode = 24908) 230 INDEX Lisandro Huynh AustinRUBEOLA IgG [id number] 00:00:00* Test Item Value Reference Range Interpretation Comme nts RUBEOLA AB, IgG (test code = 24143) 131.0 AU/ML Lisandro FrancoMUMPS VIRUS [id number] 00:00:00* Test Item Value Reference Range Interpretation Comme nts MUMPS VIRUS AB, IgG (test co de = 4585) 59.3 AU/ML Lisandro FrancoHEPATITIS B SURFACE [id number] 00:00:00* Test Item Value Reference Range Interpretation Comme nts HEPATITIS B SURFACE AB (test code = 2737) REACTIVE Lisandro [id number] 00:00:00* Test Item Value Reference Range Interpretation Comme nts ESTRADIOL (test code = 2505) 34.1 PG/ML Lisandro FrancoHEMOGLOBIN [id number] 00:00:00* Test Item Value Reference Range Interpretation Comme nts HEMOGLOBIN A1c (test code = 74096) 5.7 % Lisandro [id number] 00:00:00* Test Item Value Reference Range Interpretation Comme nts PROLACTIN (test code = 2800) 11.5 NG/ML Lisandro Huynh [id number] 00:00:00* Test Item Value Reference Range Interpretation Comme nts TSH, THIRD GENERATION (test code = 2821) 1.630 UIU/ML Lisandro FrancoLIPID [id number] 00:00:00* Test Item Value Reference Range Interpretation Comme nts CHOLESTEROL (test code = 2210) 216 MG/DL TRIGLYCERIDES (test code = 2232) 80 MG/DL HDL CHOLESTEROL (test code = 2220) 52 MG/DL CALC LDL CHOL (test code = 2237) 146 MG/DL RISK RATIO LDL/HDL (test cod e = 2238) 2.81 RATIO Lisandro FrancoCOMPREHENSIVE METABOLIC [id number] 00:00:00* Test Item Value Reference Range Interpretation Comme nts GLUCOSE (test code = 2217) 79 MG/DL BUN (test code = 2208) 13 MG/DL CREATININE (test code = 2214) 0.69 MG/DL eGFR (2020 CKD-EPI) (test code = 22878) 127 ML/MIN/1.73 CALC BUN/CREAT (test code = 2235) 19 RATIO SODIUM (test code = 2231) 140 MEQ/L POTASSIUM (test code = 2228) 4.3 MEQ/L CHLORIDE (test code = 2215) 103 MEQ/L CARBON DIOXIDE (test code = 2206) 24 MEQ/L CALCIUM (test code = 2209) 9.8 MG/DL PROTEIN, TOTAL (test code = 2229) 7.2 G/DL ALBUMIN (test code = 2201) 4.4 G/DL CALC GLOBULIN (test code = 2240) 2.8 G/DL CALC A/G RATIO (test code = 2234) 1.6 RATIO BILIRUBIN, TOTAL (test code = 2207) 0.2 MG/DL ALKALINE PHOSPHATASE (test code = 2204) 75 U/L AST (test code = 2218) 11 U/L ALT (test code = 2219) 8 U/L Lisandro [id number] 00:00:00* Test Item Value Reference Range Interpretation Comme nts TESTOSTERONE (test code = 2830) 54 NG/DL Lisandro FrancoFSH + LH [id number] 00:00:00* Test Item Value Reference Range Interpretation Comme nts FOLLICLE STIM HORMONE (test code = 2700) 6.2 IU/L LUTEINIZING HORMONE (test co de = 2776) 13.0 IU/L Lisandro FrancoCBC W/AUTO [id number] 00:00:00* Test Item Value Reference Range Interpretation Comme nts WBC (test code = 1001) 7.0 K/UL RBC (test code = 1002) 5.09 M/UL HEMOGLOBIN (test code = 1003) 13.6 G/DL HEMATOCRIT (test code = 1004) 42.5 % MCV (test code = 1005) 83.5 fL MCH (test code = 1006) 26.7 PG MCHC (test code = 1007) 32.0 G/DL RDW (test code = 1038) 14.0 % NEUTROPHILS (test code = 1008) 47.3 % LYMPHOCYTES (test code = 1010) 41.7 % MONOCYTES (test code = 1011) 8.1 % EOSINOPHILS (test code = 1012) 1.9 % BASOPHILS (test code = 1013) 0.9 % IMMATURE GRANULOCYTES (test code = 1036) 0.1 % NUCLEATED RBCS (test code = 1065) 0.0 /100WBC'S PLATELET COUNT (test code = 1015) 131 K/UL ABSOLUTE NEUTROPHILS (test c ode = 1066) 3.31 K/UL ABSOLUTE LYMPHOCYTES (test c ode = 1067) 2.92 K/UL ABSOLUTE MONOCYTES (test cod e = 1068) 0.57 K/UL ABSOLUTE EOSINOPHILS (test c ode = 1040) 0.13 K/UL ABSOLUTE BASOPHILS (test cod e = 1069) 0.06 K/UL ABS IMMATURE GRANULOCYTES (t est code = 1020) 0.01 K/UL ABS NUCLEATED RBCS (test cod e = 19538) 0.00 K/UL Lisandro [id number] 00:00:00* Test Item Value Reference Range Interpretation Comme nts ESTRADIOL (test code = 2505) 34.1 PG/ML Lisandro FrancoHEMOGLOBIN [id number] 00:00:00* Test Item Value Reference Range Interpretation Comme nts HEMOGLOBIN A1c (test code = 80706) 5.7 % Lisandro [id number] 00:00:00* Test Item Value Reference Range Interpretation Comme nts PROLACTIN (test code = 2800) 11.5 NG/ML Lisandro Huynh [id number] 00:00:00* Test Item Value Reference Range Interpretation Comme nts TSH, THIRD GENERATION (test code = 2821) 1.630 UIU/ML Lisandro Huynh AustinLIPID [id number] 00:00:00* Test Item Value Reference Range Interpretation Comme nts CHOLESTEROL (test code = 2210) 216 MG/DL TRIGLYCERIDES (test code = 2232) 80 MG/DL HDL CHOLESTEROL (test code = 2220) 52 MG/DL CALC LDL CHOL (test code = 2237) 146 MG/DL RISK RATIO LDL/HDL (test cod e = 2238) 2.81 RATIO Lisandro FrancoCOMPREHENSIVE METABOLIC [id number] 00:00:00* Test Item Value Reference Range Interpretation Comme nts GLUCOSE (test code = 2217) 79 MG/DL BUN (test code = 2208) 13 MG/DL CREATININE (test code = 2214) 0.69 MG/DL eGFR (2020 CKD-EPI) (test code = 42039) 127 ML/MIN/1.73 CALC BUN/CREAT (test code = 2235) 19 RATIO SODIUM (test code = 2231) 140 MEQ/L POTASSIUM (test code = 2228) 4.3 MEQ/L CHLORIDE (test code = 2215) 103 MEQ/L CARBON DIOXIDE (test code = 2206) 24 MEQ/L CALCIUM (test code = 2209) 9.8 MG/DL PROTEIN, TOTAL (test code = 2229) 7.2 G/DL ALBUMIN (test code = 2201) 4.4 G/DL CALC GLOBULIN (test code = 2240) 2.8 G/DL CALC A/G RATIO (test code = 2234) 1.6 RATIO BILIRUBIN, TOTAL (test code = 2207) 0.2 MG/DL ALKALINE PHOSPHATASE (test code = 2204) 75 U/L AST (test code = 2218) 11 U/L ALT (test code = 2219) 8 U/L Lisandro [id number] 00:00:00* Test Item Value Reference Range Interpretation Comme nts TESTOSTERONE (test code = 2830) 54 NG/DL Lisandro FrancoFSH + LH [id number] 00:00:00* Test Item Value Reference Range Interpretation Comme nts FOLLICLE STIM HORMONE (test code = 2700) 6.2 IU/L LUTEINIZING HORMONE (test co de = 2776) 13.0 IU/L Lisandro FrancoCBC W/AUTO [id number] 00:00:00* Test Item Value Reference Range Interpretation Comme nts WBC (test code = 1001) 7.0 K/UL RBC (test code = 1002) 5.09 M/UL HEMOGLOBIN (test code = 1003) 13.6 G/DL HEMATOCRIT (test code = 1004) 42.5 % MCV (test code = 1005) 83.5 fL MCH (test code = 1006) 26.7 PG MCHC (test code = 1007) 32.0 G/DL RDW (test code = 1038) 14.0 % NEUTROPHILS (test code = 1008) 47.3 % LYMPHOCYTES (test code = 1010) 41.7 % MONOCYTES (test code = 1011) 8.1 % EOSINOPHILS (test code = 1012) 1.9 % BASOPHILS (test code = 1013) 0.9 % IMMATURE GRANULOCYTES (test code = 1036) 0.1 % NUCLEATED RBCS (test code = 1065) 0.0 /100WBC'S PLATELET COUNT (test code = 1015) 131 K/UL ABSOLUTE NEUTROPHILS (test c ode = 1066) 3.31 K/UL ABSOLUTE LYMPHOCYTES (test c ode = 1067) 2.92 K/UL ABSOLUTE MONOCYTES (test cod e = 1068) 0.57 K/UL ABSOLUTE EOSINOPHILS (test c ode = 1040) 0.13 K/UL ABSOLUTE BASOPHILS (test cod e = 1069) 0.06 K/UL ABS IMMATURE GRANULOCYTES (t est code = 1020) 0.01 K/UL ABS NUCLEATED RBCS (test cod e = 20732) 0.00 K/UL Lisandro [id number] 00:00:00* Test Item Value Reference Range Interpretation Comme nts ESTRADIOL (test code = 2505) 34.1 PG/ML Lisandro FrancoHEMOGLOBIN [id number] 00:00:00* Test Item Value Reference Range Interpretation Comme nts HEMOGLOBIN A1c (test code = 70347) 5.7 % Lisandro [id number] 00:00:00* Test Item Value Reference Range Interpretation Comme nts PROLACTIN (test code = 2800) 11.5 NG/ML Lisandro Huynh [id number] 00:00:00* Test Item Value Reference Range Interpretation Comme nts TSH, THIRD GENERATION (test code = 2821) 1.630 UIU/ML Lisandro FrancoLIPID [id number] 00:00:00* Test Item Value Reference Range Interpretation Comme nts CHOLESTEROL (test code = 2210) 216 MG/DL TRIGLYCERIDES (test code = 2232) 80 MG/DL HDL CHOLESTEROL (test code = 2220) 52 MG/DL CALC LDL CHOL (test code = 2237) 146 MG/DL RISK RATIO LDL/HDL (test cod e = 2238) 2.81 RATIO Lisandro FrancoCOMPREHENSIVE METABOLIC [id number] 00:00:00* Test Item Value Reference Range Interpretation Comme nts GLUCOSE (test code = 2217) 79 MG/DL BUN (test code = 2208) 13 MG/DL CREATININE (test code = 2214) 0.69 MG/DL eGFR (2020 CKD-EPI) (test code = 66982) 127 ML/MIN/1.73 CALC BUN/CREAT (test code = 2235) 19 RATIO SODIUM (test code = 2231) 140 MEQ/L POTASSIUM (test code = 2228) 4.3 MEQ/L CHLORIDE (test code = 2215) 103 MEQ/L CARBON DIOXIDE (test code = 2206) 24 MEQ/L CALCIUM (test code = 2209) 9.8 MG/DL PROTEIN, TOTAL (test code = 2229) 7.2 G/DL ALBUMIN (test code = 2201) 4.4 G/DL CALC GLOBULIN (test code = 2240) 2.8 G/DL CALC A/G RATIO (test code = 2234) 1.6 RATIO BILIRUBIN, TOTAL (test code = 2207) 0.2 MG/DL ALKALINE PHOSPHATASE (test code = 2204) 75 U/L AST (test code = 2218) 11 U/L ALT (test code = 2219) 8 U/L Lisandro [id number] 00:00:00* Test Item Value Reference Range Interpretation Comme nts TESTOSTERONE (test code = 2830) 54 NG/DL Lisandro FrancoFSH + LH [id number] 00:00:00* Test Item Value Reference Range Interpretation Comme nts FOLLICLE STIM HORMONE (test code = 2700) 6.2 IU/L LUTEINIZING HORMONE (test co de = 2776) 13.0 IU/L Lisandro FrancoCBC W/AUTO [id number] 00:00:00* Test Item Value Reference Range Interpretation Comme nts WBC (test code = 1001) 7.0 K/UL RBC (test code = 1002) 5.09 M/UL HEMOGLOBIN (test code = 1003) 13.6 G/DL HEMATOCRIT (test code = 1004) 42.5 % MCV (test code = 1005) 83.5 fL MCH (test code = 1006) 26.7 PG MCHC (test code = 1007) 32.0 G/DL RDW (test code = 1038) 14.0 % NEUTROPHILS (test code = 1008) 47.3 % LYMPHOCYTES (test code = 1010) 41.7 % MONOCYTES (test code = 1011) 8.1 % EOSINOPHILS (test code = 1012) 1.9 % BASOPHILS (test code = 1013) 0.9 % IMMATURE GRANULOCYTES (test code = 1036) 0.1 % NUCLEATED RBCS (test code = 1065) 0.0 /100WBC'S PLATELET COUNT (test code = 1015) 131 K/UL ABSOLUTE NEUTROPHILS (test c ode = 1066) 3.31 K/UL ABSOLUTE LYMPHOCYTES (test c ode = 1067) 2.92 K/UL ABSOLUTE MONOCYTES (test cod e = 1068) 0.57 K/UL ABSOLUTE EOSINOPHILS (test c ode = 1040) 0.13 K/UL ABSOLUTE BASOPHILS (test cod e = 1069) 0.06 K/UL ABS IMMATURE GRANULOCYTES (t est code = 1020) 0.01 K/UL ABS NUCLEATED RBCS (test cod e = 52150) 0.00 K/UL Lisandro [id number] 00:00:00* Test Item Value Reference Range Interpretation Comme nts ESTRADIOL (test code = 2505) 34.1 PG/ML Lisandro FrancoHEMOGLOBIN [id number] 00:00:00* Test Item Value Reference Range Interpretation Comme nts HEMOGLOBIN A1c (test code = 21016) 5.7 % Lisandro Huynh [id number] 00:00:00* Test Item Value Reference Range Interpretation Comme nts PROLACTIN (test code = 2800) 11.5 NG/ML Lisandro Huynh [id number] 00:00:00* Test Item Value Reference Range Interpretation Comme nts TSH, THIRD GENERATION (test code = 2821) 1.630 UIU/ML Lisandro Huynh AustinLIPID [id number] 00:00:00* Test Item Value Reference Range Interpretation Comme nts CHOLESTEROL (test code = 2210) 216 MG/DL TRIGLYCERIDES (test code = 2232) 80 MG/DL HDL CHOLESTEROL (test code = 2220) 52 MG/DL CALC LDL CHOL (test code = 2237) 146 MG/DL RISK RATIO LDL/HDL (test cod e = 2238) 2.81 RATIO Lisandro FrancoCOMPREHENSIVE METABOLIC [id number] 00:00:00* Test Item Value Reference Range Interpretation Comme nts GLUCOSE (test code = 2217) 79 MG/DL BUN (test code = 2208) 13 MG/DL CREATININE (test code = 2214) 0.69 MG/DL eGFR (2020 CKD-EPI) (test code = 93711) 127 ML/MIN/1.73 CALC BUN/CREAT (test code = 2235) 19 RATIO SODIUM (test code = 2231) 140 MEQ/L POTASSIUM (test code = 2228) 4.3 MEQ/L CHLORIDE (test code = 2215) 103 MEQ/L CARBON DIOXIDE (test code = 2206) 24 MEQ/L CALCIUM (test code = 2209) 9.8 MG/DL PROTEIN, TOTAL (test code = 2229) 7.2 G/DL ALBUMIN (test code = 2201) 4.4 G/DL CALC GLOBULIN (test code = 2240) 2.8 G/DL CALC A/G RATIO (test code = 2234) 1.6 RATIO BILIRUBIN, TOTAL (test code = 2207) 0.2 MG/DL ALKALINE PHOSPHATASE (test code = 2204) 75 U/L AST (test code = 2218) 11 U/L ALT (test code = 2219) 8 U/L Lisandro [id number] 00:00:00* Test Item Value Reference Range Interpretation Comme nts TESTOSTERONE (test code = 2830) 54 NG/DL Lisandro FrancoFSH + LH [id number] 00:00:00* Test Item Value Reference Range Interpretation Comme nts FOLLICLE STIM HORMONE (test code = 2700) 6.2 IU/L LUTEINIZING HORMONE (test co de = 2776) 13.0 IU/L Lisandro FrancoCBC W/AUTO [id number] 00:00:00* Test Item Value Reference Range Interpretation Comme nts WBC (test code = 1001) 7.0 K/UL RBC (test code = 1002) 5.09 M/UL HEMOGLOBIN (test code = 1003) 13.6 G/DL HEMATOCRIT (test code = 1004) 42.5 % MCV (test code = 1005) 83.5 fL MCH (test code = 1006) 26.7 PG MCHC (test code = 1007) 32.0 G/DL RDW (test code = 1038) 14.0 % NEUTROPHILS (test code = 1008) 47.3 % LYMPHOCYTES (test code = 1010) 41.7 % MONOCYTES (test code = 1011) 8.1 % EOSINOPHILS (test code = 1012) 1.9 % BASOPHILS (test code = 1013) 0.9 % IMMATURE GRANULOCYTES (test code = 1036) 0.1 % NUCLEATED RBCS (test code = 1065) 0.0 /100WBC'S PLATELET COUNT (test code = 1015) 131 K/UL ABSOLUTE NEUTROPHILS (test c ode = 1066) 3.31 K/UL ABSOLUTE LYMPHOCYTES (test c ode = 1067) 2.92 K/UL ABSOLUTE MONOCYTES (test cod e = 1068) 0.57 K/UL ABSOLUTE EOSINOPHILS (test c ode = 1040) 0.13 K/UL ABSOLUTE BASOPHILS (test cod e = 1069) 0.06 K/UL ABS IMMATURE GRANULOCYTES (t est code = 1020) 0.01 K/UL ABS NUCLEATED RBCS (test cod e = 60461) 0.00 K/UL Lisandro [id number] 00:00:00* Test Item Value Reference Range Interpretation Comme nts ESTRADIOL (test code = 2505) 34.1 PG/ML Lisandro FrancoHEMOGLOBIN [id number] 00:00:00* Test Item Value Reference Range Interpretation Comme nts HEMOGLOBIN A1c (test code = 85186) 5.7 % Lisandro Huynh [id number] 00:00:00* Test Item Value Reference Range Interpretation Comme nts PROLACTIN (test code = 2800) 11.5 NG/ML Lisandro Huynh [id number] 00:00:00* Test Item Value Reference Range Interpretation Comme nts TSH, THIRD GENERATION (test code = 2821) 1.630 UIU/ML Lisandro Huynh AustinLIPID [id number] 00:00:00* Test Item Value Reference Range Interpretation Comme nts CHOLESTEROL (test code = 2210) 216 MG/DL TRIGLYCERIDES (test code = 2232) 80 MG/DL HDL CHOLESTEROL (test code = 2220) 52 MG/DL CALC LDL CHOL (test code = 2237) 146 MG/DL RISK RATIO LDL/HDL (test cod e = 2238) 2.81 RATIO Lisandro FrancoCOMPREHENSIVE METABOLIC [id number] 00:00:00* Test Item Value Reference Range Interpretation Comme nts GLUCOSE (test code = 2217) 79 MG/DL BUN (test code = 2208) 13 MG/DL CREATININE (test code = 2214) 0.69 MG/DL eGFR (2020 CKD-EPI) (test code = 63297) 127 ML/MIN/1.73 CALC BUN/CREAT (test code = 2235) 19 RATIO SODIUM (test code = 2231) 140 MEQ/L POTASSIUM (test code = 2228) 4.3 MEQ/L CHLORIDE (test code = 2215) 103 MEQ/L CARBON DIOXIDE (test code = 2206) 24 MEQ/L CALCIUM (test code = 2209) 9.8 MG/DL PROTEIN, TOTAL (test code = 2229) 7.2 G/DL ALBUMIN (test code = 2201) 4.4 G/DL CALC GLOBULIN (test code = 2240) 2.8 G/DL CALC A/G RATIO (test code = 2234) 1.6 RATIO BILIRUBIN, TOTAL (test code = 2207) 0.2 MG/DL ALKALINE PHOSPHATASE (test code = 2204) 75 U/L AST (test code = 2218) 11 U/L ALT (test code = 2219) 8 U/L Lisandro [id number] 00:00:00* Test Item Value Reference Range Interpretation Comme nts TESTOSTERONE (test code = 2830) 54 NG/DL Lisandro FrancoFSH + LH [id number] 00:00:00* Test Item Value Reference Range Interpretation Comme nts FOLLICLE STIM HORMONE (test code = 2700) 6.2 IU/L LUTEINIZING HORMONE (test co de = 2776) 13.0 IU/L Lisandro FrancoCBC W/AUTO [id number] 00:00:00* Test Item Value Reference Range Interpretation Comme nts WBC (test code = 1001) 7.0 K/UL RBC (test code = 1002) 5.09 M/UL HEMOGLOBIN (test code = 1003) 13.6 G/DL HEMATOCRIT (test code = 1004) 42.5 % MCV (test code = 1005) 83.5 fL MCH (test code = 1006) 26.7 PG MCHC (test code = 1007) 32.0 G/DL RDW (test code = 1038) 14.0 % NEUTROPHILS (test code = 1008) 47.3 % LYMPHOCYTES (test code = 1010) 41.7 % MONOCYTES (test code = 1011) 8.1 % EOSINOPHILS (test code = 1012) 1.9 % BASOPHILS (test code = 1013) 0.9 % IMMATURE GRANULOCYTES (test code = 1036) 0.1 % NUCLEATED RBCS (test code = 1065) 0.0 /100WBC'S PLATELET COUNT (test code = 1015) 131 K/UL ABSOLUTE NEUTROPHILS (test c ode = 1066) 3.31 K/UL ABSOLUTE LYMPHOCYTES (test c ode = 1067) 2.92 K/UL ABSOLUTE MONOCYTES (test cod e = 1068) 0.57 K/UL ABSOLUTE EOSINOPHILS (test c ode = 1040) 0.13 K/UL ABSOLUTE BASOPHILS (test cod e = 1069) 0.06 K/UL ABS IMMATURE GRANULOCYTES (t est code = 1020) 0.01 K/UL ABS NUCLEATED RBCS (test cod e = 89183) 0.00 K/UL Lisandro Huynh [id number] 00:00:00* Test Item Value Reference Range Interpretation Comme nts ESTRADIOL (test code = 2505) 34.1 PG/ML Lisandro FrancoHEMOGLOBIN [id number] 00:00:00* Test Item Value Reference Range Interpretation Comme nts HEMOGLOBIN A1c (test code = 96846) 5.7 % Lisandro Huynh [id number] 00:00:00* Test Item Value Reference Range Interpretation Comme nts PROLACTIN (test code = 2800) 11.5 NG/ML Lisandro Huynh [id number] 00:00:00* Test Item Value Reference Range Interpretation Comme nts TSH, THIRD GENERATION (test code = 2821) 1.630 UIU/ML Lisandro FrancoLIPID [id number] 00:00:00* Test Item Value Reference Range Interpretation Comme nts CHOLESTEROL (test code = 2210) 216 MG/DL TRIGLYCERIDES (test code = 2232) 80 MG/DL HDL CHOLESTEROL (test code = 2220) 52 MG/DL CALC LDL CHOL (test code = 2237) 146 MG/DL RISK RATIO LDL/HDL (test cod e = 2238) 2.81 RATIO Lisandro FrancoCOMPREHENSIVE METABOLIC [id number] 00:00:00* Test Item Value Reference Range Interpretation Comme nts GLUCOSE (test code = 2217) 79 MG/DL BUN (test code = 2208) 13 MG/DL CREATININE (test code = 2214) 0.69 MG/DL eGFR (2020 CKD-EPI) (test code = 23212) 127 ML/MIN/1.73 CALC BUN/CREAT (test code = 2235) 19 RATIO SODIUM (test code = 2231) 140 MEQ/L POTASSIUM (test code = 2228) 4.3 MEQ/L CHLORIDE (test code = 2215) 103 MEQ/L CARBON DIOXIDE (test code = 2206) 24 MEQ/L CALCIUM (test code = 2209) 9.8 MG/DL PROTEIN, TOTAL (test code = 2229) 7.2 G/DL ALBUMIN (test code = 2201) 4.4 G/DL CALC GLOBULIN (test code = 2240) 2.8 G/DL CALC A/G RATIO (test code = 2234) 1.6 RATIO BILIRUBIN, TOTAL (test code = 2207) 0.2 MG/DL ALKALINE PHOSPHATASE (test code = 2204) 75 U/L AST (test code = 2218) 11 U/L ALT (test code = 2219) 8 U/L Lisandro [id number] 00:00:00* Test Item Value Reference Range Interpretation Comme nts TESTOSTERONE (test code = 2830) 54 NG/DL Lisandro FrancoFSH + LH [id number] 00:00:00* Test Item Value Reference Range Interpretation Comme nts FOLLICLE STIM HORMONE (test code = 2700) 6.2 IU/L LUTEINIZING HORMONE (test co de = 3861) 13.0 IU/L Lisandro FrancoCBC W/AUTO [id number] 00:00:00* Test Item Value Reference Range Interpretation Comme nts WBC (test code = 1001) 7.0 K/UL RBC (test code = 1002) 5.09 M/UL HEMOGLOBIN (test code = 1003) 13.6 G/DL HEMATOCRIT (test code = 1004) 42.5 % MCV (test code = 1005) 83.5 fL MCH (test code = 1006) 26.7 PG MCHC (test code = 1007) 32.0 G/DL RDW (test code = 1038) 14.0 % NEUTROPHILS (test code = 1008) 47.3 % LYMPHOCYTES (test code = 1010) 41.7 % MONOCYTES (test code = 1011) 8.1 % EOSINOPHILS (test code = 1012) 1.9 % BASOPHILS (test code = 1013) 0.9 % IMMATURE GRANULOCYTES (test code = 1036) 0.1 % NUCLEATED RBCS (test code = 1065) 0.0 /100WBC'S PLATELET COUNT (test code = 1015) 131 K/UL ABSOLUTE NEUTROPHILS (test c ode = 1066) 3.31 K/UL ABSOLUTE LYMPHOCYTES (test c ode = 1067) 2.92 K/UL ABSOLUTE MONOCYTES (test cod e = 1068) 0.57 K/UL ABSOLUTE EOSINOPHILS (test c ode = 1040) 0.13 K/UL ABSOLUTE BASOPHILS (test cod e = 1069) 0.06 K/UL ABS IMMATURE GRANULOCYTES (t est code = 1020) 0.01 K/UL ABS NUCLEATED RBCS (test cod e = 05413) 0.00 K/UL Lisandro FrancoRPR REFLEX TO T. PALLIDUM - [id number] 00:00:00* Test Item Value Reference Range Interpretation Comme nts RPR (test code = 53662) NON-REACTIVE RPR TITER (test code = 3500) NOT INDIC. TITER Lisandro Huynh AustinCT/NG, TMA, [id number] 00:00:00* Test Item Value Reference Range Interpretation Comme nts CHLAMYDIA, NAAT, URINE (test code = 96901) NEGATIVE GONORRHEA, NAAT, URINE (test code = 52825) NEGATIVE Lisandro FrancoHEPATITIS PROFILE (A,B,C)2023-01-10 00:00:00* Test Item Value Reference Range Interpretation Comme nts HEPATITIS A TOTAL AB (test c ode = 2725) REACTIVE HEPATITIS B SURF AG (test co de = 2739) NON-REACTIVE HEP B CORE TOTAL AB (test co de = 2729) NON-REACTIVE HEPATITIS B SURFACE AB (test code = 2737) REACTIVE HEPATITIS C ANTIBODY (test c ode = 7678) NON-REACTIVE INTERPRETATION HEPATITIS A: (test code = 2552) (NOTE) INTERPRETATION HEPATITIS B: (test code = 67234) (NOTE) INTERPRETATION HEPATITIS C: (test code = 13209) (NOTE) Lisandro FrancoHCG, [id number] 00:00:00* Test Item Value Reference Range Interpretation Comme nts HCG, QUANTITATIVE (test code = 2506) <5 MIU/ML Lisandro FrancoHEPATITIS A IgM [REFLEX]2023-01-10 00:00:00* Test Item Value Reference Range Interpretation Comme nts HEPATITIS A IgM (test code = 2728) NON-REACTIVE Lisandro FrancoVAGINAL PATHOGENS DNA [id number] 00:00:00* Test Item Value Reference Range Interpretation Comme nts DARCI SPECIES (test code = 89269) NEGATIVE G. VAGINALIS (test code = 94592) NEGATIVE T. VAGINALIS (test code = 33317) NEGATIVE Lisadnro Huynh AustinHIV 1/2 4TH GEN, RFLX [id number] 00:00:00* Test Item Value Reference Range Interpretation Comme nts HIV 1/2 4TH GEN, RFLX CONF ( test code = 3514) NON-REACTIVE Lisandro Huynh AustinRPR REFLEX TO T. PALLIDUM - [id number] 00:00:00* Test Item Value Reference Range Interpretation Comme nts RPR (test code = 02598) NON-REACTIVE RPR TITER (test code = 3500) NOT INDIC. TITER Lisandro Huynh AustinCT/NG, TMA, [id number] 00:00:00* Test Item Value Reference Range Interpretation Comme nts CHLAMYDIA, NAAT, URINE (test code = 17135) NEGATIVE GONORRHEA, NAAT, URINE (test code = 70316) NEGATIVE Lisandro FrancoHEPATITIS PROFILE (A,B,C)2023-01-10 00:00:00* Test Item Value Reference Range Interpretation Comme nts HEPATITIS A TOTAL AB (test c ode = 2725) REACTIVE HEPATITIS B SURF AG (test co de = 4149) NON-REACTIVE HEP B CORE TOTAL AB (test co de = 2729) NON-REACTIVE HEPATITIS B SURFACE AB (test code = 2737) REACTIVE HEPATITIS C ANTIBODY (test c ode = 1846) NON-REACTIVE INTERPRETATION HEPATITIS A: (test code = 2552) (NOTE) INTERPRETATION HEPATITIS B: (test code = 56298) (NOTE) INTERPRETATION HEPATITIS C: (test code = 45707) (NOTE) Lisandro FrancoHCG, [id number] 00:00:00* Test Item Value Reference Range Interpretation Comme nts HCG, QUANTITATIVE (test code = 2506) <5 MIU/ML Lisandro FrancoHEPATITIS A IgM [REFLEX]2023-01-10 00:00:00* Test Item Value Reference Range Interpretation Comme nts HEPATITIS A IgM (test code = 2728) NON-REACTIVE Lisandro FrancoVAGINAL PATHOGENS DNA [id number] 00:00:00* Test Item Value Reference Range Interpretation Comme nts DARCI SPECIES (test code = 30817) NEGATIVE G. VAGINALIS (test code = 31751) NEGATIVE T. VAGINALIS (test code = 75081) NEGATIVE Lisandro Huynh AustinHIV 1/2 4TH GEN, RFLX [id number] 00:00:00* Test Item Value Reference Range Interpretation Comme nts HIV 1/2 4TH GEN, RFLX CONF ( test code = 3514) NON-REACTIVE Lisandro FrancoRPR REFLEX TO T. PALLIDUM - [id number] 00:00:00* Test Item Value Reference Range Interpretation Comme nts RPR (test code = 09276) NON-REACTIVE RPR TITER (test code = 3500) NOT INDIC. TITER Lisandro Huynh AustinCT/NG, TMA, [id number] 00:00:00* Test Item Value Reference Range Interpretation Comme nts CHLAMYDIA, NAAT, URINE (test code = 60746) NEGATIVE GONORRHEA, NAAT, URINE (test code = 42682) NEGATIVE Lisandro FrancoHEPATITIS PROFILE (A,B,C)2023-01-10 00:00:00* Test Item Value Reference Range Interpretation Comme nts HEPATITIS A TOTAL AB (test c ode = 5205) REACTIVE HEPATITIS B SURF AG (test co de = 2739) NON-REACTIVE HEP B CORE TOTAL AB (test co de = 2729) NON-REACTIVE HEPATITIS B SURFACE AB (test code = 2737) REACTIVE HEPATITIS C ANTIBODY (test c ode = 1038) NON-REACTIVE INTERPRETATION HEPATITIS A: (test code = 2552) (NOTE) INTERPRETATION HEPATITIS B: (test code = 87794) (NOTE) INTERPRETATION HEPATITIS C: (test code = 83045) (NOTE) Lisandro FrancoHCG, [id number] 00:00:00* Test Item Value Reference Range Interpretation Comme nts HCG, QUANTITATIVE (test code = 2506) <5 MIU/ML Lisandro FrancoHEPATITIS A IgM [REFLEX]2023-01-10 00:00:00* Test Item Value Reference Range Interpretation Comme nts HEPATITIS A IgM (test code = 2728) NON-REACTIVE Lisandro FrancoVAGINAL PATHOGENS DNA [id number] 00:00:00* Test Item Value Reference Range Interpretation Comme nts DARCI SPECIES (test code = 17254) NEGATIVE G. VAGINALIS (test code = 54221) NEGATIVE T. VAGINALIS (test code = 39423) NEGATIVE Lisandro Huynh AustinHIV 1/2 4TH GEN, RFLX [id number] 00:00:00* Test Item Value Reference Range Interpretation Comme nts HIV 1/2 4TH GEN, RFLX CONF ( test code = 3514) NON-REACTIVE Lisandro FrancoRPR REFLEX TO T. PALLIDUM - [id number] 00:00:00* Test Item Value Reference Range Interpretation Comme nts RPR (test code = 37543) NON-REACTIVE RPR TITER (test code = 3500) NOT INDIC. TITER Lisandro Huynh AustinCT/NG, TMA, [id number] 00:00:00* Test Item Value Reference Range Interpretation Comme nts CHLAMYDIA, NAAT, URINE (test code = 16369) NEGATIVE GONORRHEA, NAAT, URINE (test code = 81495) NEGATIVE Lisandro FrancoHEPATITIS PROFILE (A,B,C)2023-01-10 00:00:00* Test Item Value Reference Range Interpretation Comme nts HEPATITIS A TOTAL AB (test c ode = 2055) REACTIVE HEPATITIS B SURF AG (test co de = 2739) NON-REACTIVE HEP B CORE TOTAL AB (test co de = 2729) NON-REACTIVE HEPATITIS B SURFACE AB (test code = 2737) REACTIVE HEPATITIS C ANTIBODY (test c ode = 4675) NON-REACTIVE INTERPRETATION HEPATITIS A: (test code = 2552) (NOTE) INTERPRETATION HEPATITIS B: (test code = 61414) (NOTE) INTERPRETATION HEPATITIS C: (test code = 15614) (NOTE) Lisandro FrancoHCG, [id number] 00:00:00* Test Item Value Reference Range Interpretation Comme nts HCG, QUANTITATIVE (test code = 2506) <5 MIU/ML Lisandro FrancoHEPATITIS A IgM [REFLEX]2023-01-10 00:00:00* Test Item Value Reference Range Interpretation Comme nts HEPATITIS A IgM (test code = 2728) NON-REACTIVE Lisandro FrancoVAGINAL PATHOGENS DNA [id number] 00:00:00* Test Item Value Reference Range Interpretation Comme nts DARCI SPECIES (test code = 49418) NEGATIVE G. VAGINALIS (test code = 67564) NEGATIVE T. VAGINALIS (test code = 32198) NEGATIVE Lisandro Huynh AustinHIV 1/2 4TH GEN, RFLX [id number] 00:00:00* Test Item Value Reference Range Interpretation Comme nts HIV 1/2 4TH GEN, RFLX CONF ( test code = 3514) NON-REACTIVE Lisandro Huynh AustinRPR REFLEX TO T. PALLIDUM - [id number] 00:00:00* Test Item Value Reference Range Interpretation Comme nts RPR (test code = 56563) NON-REACTIVE RPR TITER (test code = 3500) NOT INDIC. TITER Lisandro Huynh AustinCT/NG, TMA, [id number] 00:00:00* Test Item Value Reference Range Interpretation Comme nts CHLAMYDIA, NAAT, URINE (test code = 43775) NEGATIVE GONORRHEA, NAAT, URINE (test code = 65759) NEGATIVE Lisandro FrancoHEPATITIS PROFILE (A,B,C)2023-01-10 00:00:00* Test Item Value Reference Range Interpretation Comme nts HEPATITIS A TOTAL AB (test c ode = 2725) REACTIVE HEPATITIS B SURF AG (test co de = 2739) NON-REACTIVE HEP B CORE TOTAL AB (test co de = 2729) NON-REACTIVE HEPATITIS B SURFACE AB (test code = 2737) REACTIVE HEPATITIS C ANTIBODY (test c ode = 4675) NON-REACTIVE INTERPRETATION HEPATITIS A: (test code = 2552) (NOTE) INTERPRETATION HEPATITIS B: (test code = 19854) (NOTE) INTERPRETATION HEPATITIS C: (test code = 40417) (NOTE) Lisandro FrancoHCG, [id number] 00:00:00* Test Item Value Reference Range Interpretation Comme bridger HCG, QUANTITATIVE (test code = 2506) <5 MIU/ML Lisandro FrancoHEPATITIS A IgM [REFLEX]2023-01-10 00:00:00* Test Item Value Reference Range Interpretation Comme nts HEPATITIS A IgM (test code = 2728) NON-REACTIVE Lisandro FrancoVAGINAL PATHOGENS DNA [id number] 00:00:00* Test Item Value Reference Range Interpretation Comme nts DARCI SPECIES (test code = 82045) NEGATIVE G. VAGINALIS (test code = 02717) NEGATIVE T. VAGINALIS (test code = 93186) NEGATIVE Lisandro Huynh AustinHIV 1/2 4TH GEN, RFLX [id number] 00:00:00* Test Item Value Reference Range Interpretation Comme nts HIV 1/2 4TH GEN, RFLX CONF ( test code = 3514) NON-REACTIVE Lisandro Huynh AustinRPR REFLEX TO T. PALLIDUM - [id number] 00:00:00* Test Item Value Reference Range Interpretation Comme nts RPR (test code = 71194) NON-REACTIVE RPR TITER (test code = 3500) NOT INDIC. TITER Lisandro Huynh AustinCT/NG, TMA, [id number] 00:00:00* Test Item Value Reference Range Interpretation Comme nts CHLAMYDIA, NAAT, URINE (test code = 50569) NEGATIVE GONORRHEA, NAAT, URINE (test code = 69865) NEGATIVE Lisandro FrancoHEPATITIS PROFILE (A,B,C)2023-01-10 00:00:00* Test Item Value Reference Range Interpretation Comme nts HEPATITIS A TOTAL AB (test c ode = 2725) REACTIVE HEPATITIS B SURF AG (test co de = 2739) NON-REACTIVE HEP B CORE TOTAL AB (test co de = 2729) NON-REACTIVE HEPATITIS B SURFACE AB (test code = 2737) REACTIVE HEPATITIS C ANTIBODY (test c ode = 5875) NON-REACTIVE INTERPRETATION HEPATITIS A: (test code = 2552) (NOTE) INTERPRETATION HEPATITIS B: (test code = 27010) (NOTE) INTERPRETATION HEPATITIS C: (test code = 77085) (NOTE) Lisandro FrancoHCG, [id number] 00:00:00* Test Item Value Reference Range Interpretation Comme nts HCG, QUANTITATIVE (test code = 2506) <5 MIU/ML Lisandro FrancoHEPATITIS A IgM [REFLEX]2023-01-10 00:00:00* Test Item Value Reference Range Interpretation Comme nts HEPATITIS A IgM (test code = 2728) NON-REACTIVE Lisandro FrancoVAGINAL PATHOGENS DNA [id number] 00:00:00* Test Item Value Reference Range Interpretation Comme nts DARCI SPECIES (test code = 64254) NEGATIVE G. VAGINALIS (test code = 52771) NEGATIVE T. VAGINALIS (test code = 17837) NEGATIVE Lisandro FrancoHIV 1/2 4TH GEN, RFLX [id number] 00:00:00* Test Item Value Reference Range Interpretation Comme nts HIV 1/2 4TH GEN, RFLX CONF ( test code = 3514) NON-REACTIVE Lisandro FrancoPOCT MOLECULAR [id number] 15:43:36* Test Item Value Reference Range Interpretation Comme nts POCT Molecular Strep (test c ode = 97350-2) Negative Negative Lab Interpretation (test cod e = 25749-6) Normal [facility] MOLECULAR [id number] 15:43:36* Test Item Value Reference Range Interpretation Comme nts POCT Molecular Strep (test c ode = 77223-8) Negative Negative Lab Interpretation (test cod e = 04264-4) Normal [facility] MOLECULAR [id number] 23:56:19* Test Item Value Reference Range Interpretation Comme nts POCT Molecular Strep (test c ode = 70323-0) Negative Negative Lab Interpretation (test cod e = 90999-7) Normal [facility] Notes Date/Time Note Provider Source 2023-12-29 00:00:00 [id number] T00:00:00+ + +| Plan Activity | Plan Date |+ + +| triamcinolone acetonide 0.5 % topical ointment 1 application apply on the skin | 2018-08-13 || twice a day | || prednisone 10 mg tablet daily take 2 pills for 5 days and then 1 pill for 5 | || days | || Apply cool compresses to the skin. | || Use topical treatments to relieve itching, including calamine lotion, oatmeal | || baths, or aluminum acetate (Domeboro solution). | || Oral antihistamines, such as diphenhydramine (Benadryl), can also help relieve | || itching. | || Wash hands | || Wash sheets and clothing | || Medication purpose and side effects reviewed with patient | || Follow up with clinic in one week to determine effectiveness of medication. | |+ + +| Limit fat intake to no more than 20% to 35% of your total calorie intake. For a | 2023-01-09 || person following a 1,800-calorie diet, this means eating no more than 40 to 70 | || grams of fat each day. | || Choose complex carbohydrates, such as whole grains, vegetables, and fruits. | || About 45% to 65% of your total calorie intake should come from carbohydrate. | || For someone following a 1,800-calorie diet, this means eating about 200 to 300 | || grams of carbohydrate each day. | || Choose low-fat protein sources, such as fish, poultry, and legumes (for | || example, barba beans, lentils, and split peas). About 10% to 35% of your total | || calorie intake should come from protein. For someone following a 1,800-calorie | || diet, this means eating about 45 to 160 grams of protein each day. | || Get enough fiber each day. Men should aim for 38 grams a day, and women should | || aim for 25 grams a day. | || Have no more than 1 alcohol drink a day for women and 2 alcohol drinks a day | || for men. | |+ + +| Participate in physical activities and exercise. | 2023-01-09 || 30 of moderate aerobic exercise 5 times a week. Increase your activity as | || tolerated. | |+ + +| Recommend healthy eating with foods from a variety of food groups, appropriate | 2023-01-09 || portion sizes, and few sugary snacks/drinks. | || Well-rounded, whole foods diet focused on fresh vegetables and fruits, lean | || proteins. Avoid sugary drinks. Avoid fried, greasy foods. Portion control. | |+ + +| UPT neg | 2023-01-09 || HCG | |+ + +| Ibuprofen sent to pharmacy | 2023-01-09 || ER precautions | |+ + +| wet mount | 2023-01-09 || STD panel | || RTO if worsening | |+ + +| STD panel- HIV, RPR, G/C, tich | 2023-01-09 |+ + +| upt negative | 2023-02-07 || patient requesting repeat hormonal testing 08/18 weight loss | || fsh lh prolactin pending | || tsh unremarkable 11/2023 | || schedule pelvic US | |+ + +| lipid panel | 2023-02-07 |+ + +| CMP, CBC, A1C | 2023-02-07 |+ + +| Provera 10mg x 5 days sent to pharmacy- declines OCPs at this time | 2023-03-07 || gynecology referral | || RTC if no improvement | |+ + +| Obese,height and weight are not proportionate. | 2023-06-01 |+ + +| Patient is clinically well | 2023-06-01 || Will completion the form based on labs and PPD report | |+ + +| Patient to have PPD placed | 2023-06-01 || Follow up 06/03/2023 after 10am | || Patient is aware that we are not open 06/04/2023 and if unable to have read | || will need to repeat | |+ + +| Check titers Varicella, MMR, Hep B | 2023-06-01 || Patient reports completed vaccinations. | |+ + +| COVID, FLU, RSV STREP | 2023-07-04 || If positive for covid regardless of vaccination status- Isolate for 5 days. If | || you have no symptoms or your symptoms are resolving after 5 days, you can leave | || your house. Continue to wear a well-fitting mask around others for 5 additional | || days If you have a fever, continue to stay home until your fever resolves. | || | || If you were exposed: | || Have been booster OR Completed the primary series of Pfizer of Moderna vaccine | || within the last 6 months OR Completed the primary series of J&J vaccine within | || the last 2 months---- wear a mask around others for 10 days; test on day 5 , if | || possible, If you develop symptoms, get a test and stay home. | || | || IF you were exposed: Completed the primary series of Pfizer or Moderna vaccine | || over 6 months ago and are not boosted OR Completed the primary series of J&J | || over 2 months ago and are not boosted OR are unvaccinated---Stay home for 5 | || days, AFter that continue to wear a well-fitting mask around others for 5 | || additional days, If you can't quarantine you must wear a well- fiiting mask for | || 10 days. Test on day 5 if possible. If you develop symptoms, get a test and | || stay home, | |+ + +| tessalon pearls TID PRN | 2023-07-04 || visouse lidocain gargle and do not swallow QID prn. | |+ + +| COVID, FLU, RSV STREP | 2023-07-04 || If positive for covid regardless of vaccination status- Isolate for 5 days. If | || you have no symptoms or your symptoms are resolving after 5 days, you can leave | || your house. Continue to wear a well-fitting mask around others for 5 additional | || days If you have a fever, continue to stay home until your fever resolves. | || | || If you were exposed: | || Have been booster OR Completed the primary series of Pfizer of Moderna vaccine | || within the last 6 months OR Completed the primary series of J&J vaccine within | || the last 2 months---- wear a mask around others for 10 days; test on day 5 , if | || possible, If you develop symptoms, get a test and stay home. | || | || IF you were exposed: Completed the primary series of Pfizer or Moderna vaccine | || over 6 months ago and are not boosted OR Completed the primary series of J&J | || over 2 months ago and are not boosted OR are unvaccinated---Stay home for 5 | || days, AFter that continue to wear a well-fitting mask around others for 5 | || additional days, If you can't quarantine you must wear a well- fiiting mask for | || 10 days. Test on day 5 if possible. If you develop symptoms, get a test and | || stay home, | |+ + +| COVID, FLU, RSV, STREP A | 2023-07-04 || | || If positive for covid regardless of vaccination status- Isolate for 5 days. If | || you have no symptoms or your symptoms are resolving after 5 days, you can leave | || your house. Continue to wear a well-fitting mask around others for 5 additional | || days If you have a fever, continue to stay home until your fever resolves. | || | || If you were exposed: | || Have been booster OR Completed the primary series of Pfizer of Moderna vaccine | || within the last 6 months OR Completed the primary series of J&J vaccine within | || the last 2 months---- wear a mask around others for 10 days; test on day 5 , if | || possible, If you develop symptoms, get a test and stay home. | || | || IF you were exposed: Completed the primary series of Pfizer or Moderna vaccine | || over 6 months ago and are not boosted OR Completed the primary series of J&J | || over 2 months ago and are not boosted OR are unvaccinated---Stay home for 5 | || days, AFter that continue to wear a well-fitting mask around others for 5 | || additional days, If you can't quarantine you must wear a well- fiiting mask for | || 10 days. Test on day 5 if possible. If you develop symptoms, get a test and | || stay home, | |+ + +| UPT negative | 2023-07-25 || CMP LIPID A1C TSH HCG pending | || Ozempic sent to rx | || educated on healthy diet and exercise | |+ + +| Strep Covid Flu Negative | 2023-09-04 || | || Etiology likely viral. NSAIDs or acetaminophen as needed for fever or body | || aches. Increase fluid intake. Rest. Symptoms typically resolve after 7-10 days. | || Advised patient that it is typical for cough to linger 3-4 weeks. | || cough lozenges prn | || rx Bromfed DM prn | |+ + +| Sumatriptan sent to rx | 2023-09-04 || discussed sleep hygiene | || decrease screen time and sunlight | || RTO in 1 week | |+ + +| covid test + | 2023-10-18 || Bromphed 10ml Q4-6 hours as needed for cough and congestion. | || Tylenol or Motrin for body aches and fever. | || Masking and quarantine precautions. | || If no improvement or worsening of symptoms in 7-10 days RTO. | || ER precautions discussed. | |+ + +| Zofran 4mg TID PRN for vomiting. | 2023-10-18 || Hydrate. | || BRAT diet. | || Reassurance provided symptoms will likely resolve in a few days. | || RTO for worsening of symptoms or no resolution in 1 week. | |+ + +| Iburofen 800 mg po tid prn refilled | 2023-11-02 || recommend raspberry leaf tea | || heating pad | || RTO prn | |+ + +| Miralax sent to rx | 2023-11-08 || High fiber foods. | || Hydration | || Continue Exercising. | |+ + +| TSH VIT D VIT B12 | 2023-12-04 || sleep hygiene discussed. | || RTO pending results | |+ + +| Mupirocin ointment sent to rx | 2023-12-18 || motrin/ tylenol prn for pain | || rto in 1 week if symptoms persist | |+ + +| Allergeb panel pending | 2023-12-25 |+ + +[id number] of TreatmentLNCARE PLANTXTSFA|[id number] for patient [id number] Section NarrativeNARRATIVEFormatted C-CDA narrative textSFAStindio Mendez [facility]2024-06-17T00:00:00 Lisandro Mendez [facility] 2023-12-22 00:00:00 [id number]/go/I [id number] T00:00:00+ + +| Plan Activity | Plan Date |+ + +| triamcinolone acetonide 0.5 % topical ointment 1 application apply on the skin | 2018-08-13 || twice a day | || prednisone 10 mg tablet daily take 2 pills for 5 days and then 1 pill for 5 | || days | || Apply cool compresses to the skin. | || Use topical treatments to relieve itching, including calamine lotion, oatmeal | || baths, or aluminum acetate (Domeboro solution). | || Oral antihistamines, such as diphenhydramine (Benadryl), can also help relieve | || itching. | || Wash hands | || Wash sheets and clothing | || Medication purpose and side effects reviewed with patient | || Follow up with clinic in one week to determine effectiveness of medication. | |+ + +| Limit fat intake to no more than 20% to 35% of your total calorie intake. For a | 2023-01-09 || person following a 1,800-calorie diet, this means eating no more than 40 to 70 | || grams of fat each day. | || Choose complex carbohydrates, such as whole grains, vegetables, and fruits. | || About 45% to 65% of your total calorie intake should come from carbohydrate. | || For someone following a 1,800-calorie diet, this means eating about 200 to 300 | || grams of carbohydrate each day. | || Choose low-fat protein sources, such as fish, poultry, and legumes (for | || example, barba beans, lentils, and split peas). About 10% to 35% of your total | || calorie intake should come from protein. For someone following a 1,800-calorie | || diet, this means eating about 45 to 160 grams of protein each day. | || Get enough fiber each day. Men should aim for 38 grams a day, and women should | || aim for 25 grams a day. | || Have no more than 1 alcohol drink a day for women and 2 alcohol drinks a day | || for men. | |+ + +| Participate in physical activities and exercise. | 2023-01-09 || 30 of moderate aerobic exercise 5 times a week. Increase your activity as | || tolerated. | |+ + +| Recommend healthy eating with foods from a variety of food groups, appropriate | 2023-01-09 || portion sizes, and few sugary snacks/drinks. | || Well-rounded, whole foods diet focused on fresh vegetables and fruits, lean | || proteins. Avoid sugary drinks. Avoid fried, greasy foods. Portion control. | |+ + +| UPT neg | 2023-01-09 || HCG | |+ + +| Ibuprofen sent to pharmacy | 2023-01-09 || ER precautions | |+ + +| wet mount | 2023-01-09 || STD panel | || RTO if worsening | |+ + +| STD panel- HIV, RPR, G/C, tich | 2023-01-09 |+ + +| Refilled Metformin , declines control at this time | 2023-02-07 || track periods and ovulation | || RTC if no improvement | |+ + +| lipid panel | 2023-02-07 |+ + +| CMP, CBC, A1C | 2023-02-07 |+ + +| Provera 10mg x 5 days sent to pharmacy- declines OCPs at this time | 2023-03-07 || gynecology referral | || RTC if no improvement | |+ + +| Obese,height and weight are not proportionate. | 2023-06-01 |+ + +| Patient is clinically well | 2023-06-01 || Will completion the form based on labs and PPD report | |+ + +| Patient to have PPD placed | 2023-06-01 || Follow up 06/03/2023 after 10am | || Patient is aware that we are not open 06/04/2023 and if unable to have read | || will need to repeat | |+ + +| Check titers Varicella, MMR, Hep B | 2023-06-01 || Patient reports completed vaccinations. | |+ + +| COVID, FLU, RSV STREP | 2023-07-04 || If positive for covid regardless of vaccination status- Isolate for 5 days. If | || you have no symptoms or your symptoms are resolving after 5 days, you can leave | || your house. Continue to wear a well-fitting mask around others for 5 additional | || days If you have a fever, continue to stay home until your fever resolves. | || | || If you were exposed: | || Have been booster OR Completed the primary series of Pfizer of Moderna vaccine | || within the last 6 months OR Completed the primary series of J&J vaccine within | || the last 2 months---- wear a mask around others for 10 days; test on day 5 , if | || possible, If you develop symptoms, get a test and stay home. | || | || IF you were exposed: Completed the primary series of Pfizer or Moderna vaccine | || over 6 months ago and are not boosted OR Completed the primary series of J&J | || over 2 months ago and are not boosted OR are unvaccinated---Stay home for 5 | || days, AFter that continue to wear a well-fitting mask around others for 5 | || additional days, If you can't quarantine you must wear a well- fiiting mask for | || 10 days. Test on day 5 if possible. If you develop symptoms, get a test and | || stay home, | |+ + +| tessalon pearls TID PRN | 2023-07-04 || visouse lidocain gargle and do not swallow QID prn. | |+ + +| COVID, FLU, RSV STREP | 2023-07-04 || If positive for covid regardless of vaccination status- Isolate for 5 days. If | || you have no symptoms or your symptoms are resolving after 5 days, you can leave | || your house. Continue to wear a well-fitting mask around others for 5 additional | || days If you have a fever, continue to stay home until your fever resolves. | || | || If you were exposed: | || Have been booster OR Completed the primary series of Pfizer of Moderna vaccine | || within the last 6 months OR Completed the primary series of J&J vaccine within | || the last 2 months---- wear a mask around others for 10 days; test on day 5 , if | || possible, If you develop symptoms, get a test and stay home. | || | || IF you were exposed: Completed the primary series of Pfizer or Moderna vaccine | || over 6 months ago and are not boosted OR Completed the primary series of J&J | || over 2 months ago and are not boosted OR are unvaccinated---Stay home for 5 | || days, AFter that continue to wear a well-fitting mask around others for 5 | || additional days, If you can't quarantine you must wear a well- fiiting mask for | || 10 days. Test on day 5 if possible. If you develop symptoms, get a test and | || stay home, | |+ + +| COVID, FLU, RSV, STREP A | 2023-07-04 || | || If positive for covid regardless of vaccination status- Isolate for 5 days. If | || you have no symptoms or your symptoms are resolving after 5 days, you can leave | || your house. Continue to wear a well-fitting mask around others for 5 additional | || days If you have a fever, continue to stay home until your fever resolves. | || | || If you were exposed: | || Have been booster OR Completed the primary series of Pfizer of Moderna vaccine | || within the last 6 months OR Completed the primary series of J&J vaccine within | || the last 2 months---- wear a mask around others for 10 days; test on day 5 , if | || possible, If you develop symptoms, get a test and stay home. | || | || IF you were exposed: Completed the primary series of Pfizer or Moderna vaccine | || over 6 months ago and are not boosted OR Completed the primary series of J&J | || over 2 months ago and are not boosted OR are unvaccinated---Stay home for 5 | || days, AFter that continue to wear a well-fitting mask around others for 5 | || additional days, If you can't quarantine you must wear a well- fiiting mask for | || 10 days. Test on day 5 if possible. If you develop symptoms, get a test and | || stay home, | |+ + +| UPT negative | 2023-07-25 || CMP LIPID A1C TSH HCG pending | || Ozempic sent to rx | || educated on healthy diet and exercise | |+ + +| Strep Covid Flu Negative | 2023-09-04 || | || Etiology likely viral. NSAIDs or acetaminophen as needed for fever or body | || aches. Increase fluid intake. Rest. Symptoms typically resolve after 7-10 days. | || Advised patient that it is typical for cough to linger 3-4 weeks. | || cough lozenges prn | || rx Bromfed DM prn | |+ + +| Sumatriptan sent to rx | 2023-09-04 || discussed sleep hygiene | || decrease screen time and sunlight | || RTO in 1 week | |+ + +| covid test + | 2023-10-18 || Bromphed 10ml Q4-6 hours as needed for cough and congestion. | || Tylenol or Motrin for body aches and fever. | || Masking and quarantine precautions. | || If no improvement or worsening of symptoms in 7-10 days RTO. | || ER precautions discussed. | |+ + +| Zofran 4mg TID PRN for vomiting. | 2023-10-18 || Hydrate. | || BRAT diet. | || Reassurance provided symptoms will likely resolve in a few days. | || RTO for worsening of symptoms or no resolution in 1 week. | |+ + +| Iburofen 800 mg po tid prn refilled | 2023-11-02 || recommend raspberry leaf tea | || heating pad | || RTO prn | |+ + +| Miralax sent to rx | 2023-11-08 || High fiber foods. | || Hydration | || Continue Exercising. | |+ + +| TSH VIT D VIT B12 | 2023-12-04 || sleep hygiene discussed. | || RTO pending results | |+ + +| Mupirocin ointment sent to rx | 2023-12-18 || motrin/ tylenol prn for pain | || rto in 1 week if symptoms persist | |+ + +| Allergeb panel pending | 2023-12-25 |+ + +[id number] [facility] TreatmentCOL[facility] [id number] for patient [id number] Section NarrativeNARRATIVEFormatted C-CDA narrative textSAlbuquerque Indian Health Centerindio Mendez [facility]2024-06-10T00:00:00 Lisandro Mendez [facility] 2023-12-15 00:00:00 5He+[id number] rcmlsRaalBk4Uu4/O 3/[id number] T00:00:00+ + +| Plan Activity | Plan Date |+ + +| triamcinolone acetonide 0.5 % topical ointment 1 application apply on the skin | 2018-08-13 || twice a day | || prednisone 10 mg tablet daily take 2 pills for 5 days and then 1 pill for 5 | || days | || Apply cool compresses to the skin. | || Use topical treatments to relieve itching, including calamine lotion, oatmeal | || baths, or aluminum acetate (Domeboro solution). | || Oral antihistamines, such as diphenhydramine (Benadryl), can also help relieve | || itching. | || Wash hands | || Wash sheets and clothing | || Medication purpose and side effects reviewed with patient | || Follow up with clinic in one week to determine effectiveness of medication. | |+ + +| Limit fat intake to no more than 20% to 35% of your total calorie intake. For a | 2023-01-09 || person following a 1,800-calorie diet, this means eating no more than 40 to 70 | || grams of fat each day. | || Choose complex carbohydrates, such as whole grains, vegetables, and fruits. | || About 45% to 65% of your total calorie intake should come from carbohydrate. | || For someone following a 1,800-calorie diet, this means eating about 200 to 300 | || grams of carbohydrate each day. | || Choose low-fat protein sources, such as fish, poultry, and legumes (for | || example, barba beans, lentils, and split peas). About 10% to 35% of your total | || calorie intake should come from protein. For someone following a 1,800-calorie | || diet, this means eating about 45 to 160 grams of protein each day. | || Get enough fiber each day. Men should aim for 38 grams a day, and women should | || aim for 25 grams a day. | || Have no more than 1 alcohol drink a day for women and 2 alcohol drinks a day | || for men. | |+ + +| Participate in physical activities and exercise. | 2023-01-09 || 30 of moderate aerobic exercise 5 times a week. Increase your activity as | || tolerated. | |+ + +| Recommend healthy eating with foods from a variety of food groups, appropriate | 2023-01-09 || portion sizes, and few sugary snacks/drinks. | || Well-rounded, whole foods diet focused on fresh vegetables and fruits, lean | || proteins. Avoid sugary drinks. Avoid fried, greasy foods. Portion control. | |+ + +| UPT neg | 2023-01-09 || HCG | |+ + +| Ibuprofen sent to pharmacy | 2023-01-09 || ER precautions | |+ + +| wet mount | 2023-01-09 || STD panel | || RTO if worsening | |+ + +| STD panel- HIV, RPR, G/C, tich | 2023-01-09 |+ + +| Refilled Metformin , declines control at this time | 2023-02-07 || track periods and ovulation | || RTC if no improvement | |+ + +| lipid panel | 2023-02-07 |+ + +| CMP, CBC, A1C | 2023-02-07 |+ + +| Provera 10mg x 5 days sent to pharmacy- declines OCPs at this time | 2023-03-07 || gynecology referral | || RTC if no improvement | |+ + +| Obese,height and weight are not proportionate. | 2023-06-01 |+ + +| Patient is clinically well | 2023-06-01 || Will completion the form based on labs and PPD report | |+ + +| Patient to have PPD placed | 2023-06-01 || Follow up 06/03/2023 after 10am | || Patient is aware that we are not open 06/04/2023 and if unable to have read | || will need to repeat | |+ + +| Check titers Varicella, MMR, Hep B | 2023-06-01 || Patient reports completed vaccinations. | |+ + +| COVID, FLU, RSV STREP | 2023-07-04 || If positive for covid regardless of vaccination status- Isolate for 5 days. If | || you have no symptoms or your symptoms are resolving after 5 days, you can leave | || your house. Continue to wear a well-fitting mask around others for 5 additional | || days If you have a fever, continue to stay home until your fever resolves. | || | || If you were exposed: | || Have been booster OR Completed the primary series of Pfizer of Moderna vaccine | || within the last 6 months OR Completed the primary series of J&J vaccine within | || the last 2 months---- wear a mask around others for 10 days; test on day 5 , if | || possible, If you develop symptoms, get a test and stay home. | || | || IF you were exposed: Completed the primary series of Pfizer or Moderna vaccine | || over 6 months ago and are not boosted OR Completed the primary series of J&J | || over 2 months ago and are not boosted OR are unvaccinated---Stay home for 5 | || days, AFter that continue to wear a well-fitting mask around others for 5 | || additional days, If you can't quarantine you must wear a well- fiiting mask for | || 10 days. Test on day 5 if possible. If you develop symptoms, get a test and | || stay home, | |+ + +| tessalon pearls TID PRN | 2023-07-04 || visouse lidocain gargle and do not swallow QID prn. | |+ + +| COVID, FLU, RSV STREP | 2023-07-04 || If positive for covid regardless of vaccination status- Isolate for 5 days. If | || you have no symptoms or your symptoms are resolving after 5 days, you can leave | || your house. Continue to wear a well-fitting mask around others for 5 additional | || days If you have a fever, continue to stay home until your fever resolves. | || | || If you were exposed: | || Have been booster OR Completed the primary series of Pfizer of Moderna vaccine | || within the last 6 months OR Completed the primary series of J&J vaccine within | || the last 2 months---- wear a mask around others for 10 days; test on day 5 , if | || possible, If you develop symptoms, get a test and stay home. | || | || IF you were exposed: Completed the primary series of Pfizer or Moderna vaccine | || over 6 months ago and are not boosted OR Completed the primary series of J&J | || over 2 months ago and are not boosted OR are unvaccinated---Stay home for 5 | || days, AFter that continue to wear a well-fitting mask around others for 5 | || additional days, If you can't quarantine you must wear a well- fiiting mask for | || 10 days. Test on day 5 if possible. If you develop symptoms, get a test and | || stay home, | |+ + +| COVID, FLU, RSV, STREP A | 2023-07-04 || | || If positive for covid regardless of vaccination status- Isolate for 5 days. If | || you have no symptoms or your symptoms are resolving after 5 days, you can leave | || your house. Continue to wear a well-fitting mask around others for 5 additional | || days If you have a fever, continue to stay home until your fever resolves. | || | || If you were exposed: | || Have been booster OR Completed the primary series of Pfizer of Moderna vaccine | || within the last 6 months OR Completed the primary series of J&J vaccine within | || the last 2 months---- wear a mask around others for 10 days; test on day 5 , if | || possible, If you develop symptoms, get a test and stay home. | || | || IF you were exposed: Completed the primary series of Pfizer or Moderna vaccine | || over 6 months ago and are not boosted OR Completed the primary series of J&J | || over 2 months ago and are not boosted OR are unvaccinated---Stay home for 5 | || days, AFter that continue to wear a well-fitting mask around others for 5 | || additional days, If you can't quarantine you must wear a well- fiiting mask for | || 10 days. Test on day 5 if possible. If you develop symptoms, get a test and | || stay home, | |+ + +| UPT negative | 2023-07-25 || CMP LIPID A1C TSH HCG pending | || Ozempic sent to rx | || educated on healthy diet and exercise | |+ + +| Strep Covid Flu Negative | 2023-09-04 || | || Etiology likely viral. NSAIDs or acetaminophen as needed for fever or body | || aches. Increase fluid intake. Rest. Symptoms typically resolve after 7-10 days. | || Advised patient that it is typical for cough to linger 3-4 weeks. | || cough lozenges prn | || rx Bromfed DM prn | |+ + +| Sumatriptan sent to rx | 2023-09-04 || discussed sleep hygiene | || decrease screen time and sunlight | || RTO in 1 week | |+ + +| covid test + | 2023-10-18 || Bromphed 10ml Q4-6 hours as needed for cough and congestion. | || Tylenol or Motrin for body aches and fever. | || Masking and quarantine precautions. | || If no improvement or worsening of symptoms in 7-10 days RTO. | || ER precautions discussed. | |+ + +| Zofran 4mg TID PRN for vomiting. | 2023-10-18 || Hydrate. | || BRAT diet. | || Reassurance provided symptoms will likely resolve in a few days. | || RTO for worsening of symptoms or no resolution in 1 week. | |+ + +| Iburofen 800 mg po tid prn refilled | 2023-11-02 || recommend raspberry leaf tea | || heating pad | || RTO prn | |+ + +| Miralax sent to rx | 2023-11-08 || High fiber foods. | || Hydration | || Continue Exercising. | |+ + +| TSH VIT D VIT B12 | 2023-12-04 || sleep hygiene discussed. | || RTO pending results | |+ + +| Mupirocin ointment sent to rx | 2023-12-18 || motrin/ tylenol prn for pain | || rto in 1 week if symptoms persist | |+ + +[id number] of TreatmentCOLUMBIA [facility] [place][id number] for patient z[id number] Section NarrativeNARRATIVEFormatted C-CDA narrative textSFAStindio Mendez [facility]2024-06-03T00:00:00 Lisandro Mendez [facility] 2023-12-04 00:00:00 [id number] [id number] T00:00:00+ + +| Plan Activity | Plan Date |+ + +| triamcinolone acetonide 0.5 % topical ointment 1 application apply on the skin | 2018-08-13 || twice a day | || prednisone 10 mg tablet daily take 2 pills for 5 days and then 1 pill for 5 | || days | || Apply cool compresses to the skin. | || Use topical treatments to relieve itching, including calamine lotion, oatmeal | || baths, or aluminum acetate (Domeboro solution). | || Oral antihistamines, such as diphenhydramine (Benadryl), can also help relieve | || itching. | || Wash hands | || Wash sheets and clothing | || Medication purpose and side effects reviewed with patient | || Follow up with clinic in one week to determine effectiveness of medication. | |+ + +| Limit fat intake to no more than 20% to 35% of your total calorie intake. For a | 2023-01-09 || person following a 1,800-calorie diet, this means eating no more than 40 to 70 | || grams of fat each day. | || Choose complex carbohydrates, such as whole grains, vegetables, and fruits. | || About 45% to 65% of your total calorie intake should come from carbohydrate. | || For someone following a 1,800-calorie diet, this means eating about 200 to 300 | || grams of carbohydrate each day. | || Choose low-fat protein sources, such as fish, poultry, and legumes (for | || example, barba beans, lentils, and split peas). About 10% to 35% of your total | || calorie intake should come from protein. For someone following a 1,800-calorie | || diet, this means eating about 45 to 160 grams of protein each day. | || Get enough fiber each day. Men should aim for 38 grams a day, and women should | || aim for 25 grams a day. | || Have no more than 1 alcohol drink a day for women and 2 alcohol drinks a day | || for men. | |+ + +| Participate in physical activities and exercise. | 2023-01-09 || 30 of moderate aerobic exercise 5 times a week. Increase your activity as | || tolerated. | |+ + +| Recommend healthy eating with foods from a variety of food groups, appropriate | 2023-01-09 || portion sizes, and few sugary snacks/drinks. | || Well-rounded, whole foods diet focused on fresh vegetables and fruits, lean | || proteins. Avoid sugary drinks. Avoid fried, greasy foods. Portion control. | |+ + +| UPT neg | 2023-01-09 || HCG | |+ + +| Ibuprofen sent to pharmacy | 2023-01-09 || ER precautions | |+ + +| wet mount | 2023-01-09 || STD panel | || RTO if worsening | |+ + +| STD panel- HIV, RPR, G/C, tich | 2023-01-09 |+ + +| Refilled Metformin , declines control at this time | 2023-02-07 || track periods and ovulation | || RTC if no improvement | |+ + +| lipid panel | 2023-02-07 |+ + +| CMP, CBC, A1C | 2023-02-07 |+ + +| Provera 10mg x 5 days sent to pharmacy- declines OCPs at this time | 2023-03-07 || gynecology referral | || RTC if no improvement | |+ + +| Obese,height and weight are not proportionate. | 2023-06-01 |+ + +| Patient is clinically well | 2023-06-01 || Will completion the form based on labs and PPD report | |+ + +| Patient to have PPD placed | 2023-06-01 || Follow up 06/03/2023 after 10am | || Patient is aware that we are not open 06/04/2023 and if unable to have read | || will need to repeat | |+ + +| Check titers Varicella, MMR, Hep B | 2023-06-01 || Patient reports completed vaccinations. | |+ + +| COVID, FLU, RSV STREP | 2023-07-04 || If positive for covid regardless of vaccination status- Isolate for 5 days. If | || you have no symptoms or your symptoms are resolving after 5 days, you can leave | || your house. Continue to wear a well-fitting mask around others for 5 additional | || days If you have a fever, continue to stay home until your fever resolves. | || | || If you were exposed: | || Have been booster OR Completed the primary series of Pfizer of Moderna vaccine | || within the last 6 months OR Completed the primary series of J&J vaccine within | || the last 2 months---- wear a mask around others for 10 days; test on day 5 , if | || possible, If you develop symptoms, get a test and stay home. | || | || IF you were exposed: Completed the primary series of Pfizer or Moderna vaccine | || over 6 months ago and are not boosted OR Completed the primary series of J&J | || over 2 months ago and are not boosted OR are unvaccinated---Stay home for 5 | || days, AFter that continue to wear a well-fitting mask around others for 5 | || additional days, If you can't quarantine you must wear a well- fiiting mask for | || 10 days. Test on day 5 if possible. If you develop symptoms, get a test and | || stay home, | |+ + +| tessalon pearls TID PRN | 2023-07-04 || visouse lidocain gargle and do not swallow QID prn. | |+ + +| COVID, FLU, RSV STREP | 2023-07-04 || If positive for covid regardless of vaccination status- Isolate for 5 days. If | || you have no symptoms or your symptoms are resolving after 5 days, you can leave | || your house. Continue to wear a well-fitting mask around others for 5 additional | || days If you have a fever, continue to stay home until your fever resolves. | || | || If you were exposed: | || Have been booster OR Completed the primary series of Pfizer of Moderna vaccine | || within the last 6 months OR Completed the primary series of J&J vaccine within | || the last 2 months---- wear a mask around others for 10 days; test on day 5 , if | || possible, If you develop symptoms, get a test and stay home. | || | || IF you were exposed: Completed the primary series of Pfizer or Moderna vaccine | || over 6 months ago and are not boosted OR Completed the primary series of J&J | || over 2 months ago and are not boosted OR are unvaccinated---Stay home for 5 | || days, AFter that continue to wear a well-fitting mask around others for 5 | || additional days, If you can't quarantine you must wear a well- fiiting mask for | || 10 days. Test on day 5 if possible. If you develop symptoms, get a test and | || stay home, | |+ + +| COVID, FLU, RSV, STREP A | 2023-07-04 || | || If positive for covid regardless of vaccination status- Isolate for 5 days. If | || you have no symptoms or your symptoms are resolving after 5 days, you can leave | || your house. Continue to wear a well-fitting mask around others for 5 additional | || days If you have a fever, continue to stay home until your fever resolves. | || | || If you were exposed: | || Have been booster OR Completed the primary series of Pfizer of Moderna vaccine | || within the last 6 months OR Completed the primary series of J&J vaccine within | || the last 2 months---- wear a mask around others for 10 days; test on day 5 , if | || possible, If you develop symptoms, get a test and stay home. | || | || IF you were exposed: Completed the primary series of Pfizer or Moderna vaccine | || over 6 months ago and are not boosted OR Completed the primary series of J&J | || over 2 months ago and are not boosted OR are unvaccinated---Stay home for 5 | || days, AFter that continue to wear a well-fitting mask around others for 5 | || additional days, If you can't quarantine you must wear a well- fiiting mask for | || 10 days. Test on day 5 if possible. If you develop symptoms, get a test and | || stay home, | |+ + +| UPT negative | 2023-07-25 || CMP LIPID A1C TSH HCG pending | || Ozempic sent to rx | || educated on healthy diet and exercise | |+ + +| Strep Covid Flu Negative | 2023-09-04 || | || Etiology likely viral. NSAIDs or acetaminophen as needed for fever or body | || aches. Increase fluid intake. Rest. Symptoms typically resolve after 7-10 days. | || Advised patient that it is typical for cough to linger 3-4 weeks. | || cough lozenges prn | || rx Bromfed DM prn | |+ + +| Sumatriptan sent to rx | 2023-09-04 || discussed sleep hygiene | || decrease screen time and sunlight | || RTO in 1 week | |+ + +| covid test + | 2023-10-18 || Bromphed 10ml Q4-6 hours as needed for cough and congestion. | || Tylenol or Motrin for body aches and fever. | || Masking and quarantine precautions. | || If no improvement or worsening of symptoms in 7-10 days RTO. | || ER precautions discussed. | |+ + +| Zofran 4mg TID PRN for vomiting. | 2023-10-18 || Hydrate. | || BRAT diet. | || Reassurance provided symptoms will likely resolve in a few days. | || RTO for worsening of symptoms or no resolution in 1 week. | |+ + +| Iburofen 800 mg po tid prn refilled | 2023-11-02 || recommend raspberry leaf tea | || heating pad | || RTO prn | |+ + +| Miralax sent to rx | 2023-11-08 || High fiber foods. | || Hydration | || Continue Exercising. | |+ + +| TSH VIT D VIT B12 | 2023-12-04 || sleep hygiene discussed. | || RTO pending results | |+ + +[id number] of TreatmentLNCARE PLANTXTSFA|[id number] for patient [id number] Section NarrativeNARRATIVEFormatted C-CDA narrative textSFAStephen F. [facility]2024-[facility]-21T00:00:00 Lisandro Mendez [facility] 2023-11-08 00:00:00 [id number] T00:00:00+ + +| Plan Activity | Plan Date |+ + +| triamcinolone acetonide 0.5 % topical ointment 1 application apply on the skin | 2018-08-13 || twice a day | || prednisone 10 mg tablet daily take 2 pills for 5 days and then 1 pill for 5 | || days | || Apply cool compresses to the skin. | || Use topical treatments to relieve itching, including calamine lotion, oatmeal | || baths, or aluminum acetate (Domeboro solution). | || Oral antihistamines, such as diphenhydramine (Benadryl), can also help relieve | || itching. | || Wash hands | || Wash sheets and clothing | || Medication purpose and side effects reviewed with patient | || Follow up with clinic in one week to determine effectiveness of medication. | |+ + +| Limit fat intake to no more than 20% to 35% of your total calorie intake. For a | 2023-01-09 || person following a 1,800-calorie diet, this means eating no more than 40 to 70 | || grams of fat each day. | || Choose complex carbohydrates, such as whole grains, vegetables, and fruits. | || About 45% to 65% of your total calorie intake should come from carbohydrate. | || For someone following a 1,800-calorie diet, this means eating about 200 to 300 | || grams of carbohydrate each day. | || Choose low-fat protein sources, such as fish, poultry, and legumes (for | || example, barba beans, lentils, and split peas). About 10% to 35% of your total | || calorie intake should come from protein. For someone following a 1,800-calorie | || diet, this means eating about 45 to 160 grams of protein each day. | || Get enough fiber each day. Men should aim for 38 grams a day, and women should | || aim for 25 grams a day. | || Have no more than 1 alcohol drink a day for women and 2 alcohol drinks a day | || for men. | |+ + +| Participate in physical activities and exercise. | 2023-01-09 || 30 of moderate aerobic exercise 5 times a week. Increase your activity as | || tolerated. | |+ + +| Recommend healthy eating with foods from a variety of food groups, appropriate | 2023-01-09 || portion sizes, and few sugary snacks/drinks. | || Well-rounded, whole foods diet focused on fresh vegetables and fruits, lean | || proteins. Avoid sugary drinks. Avoid fried, greasy foods. Portion control. | |+ + +| UPT neg | 2023-01-09 || HCG | |+ + +| Ibuprofen sent to pharmacy | 2023-01-09 || ER precautions | |+ + +| wet mount | 2023-01-09 || STD panel | || RTO if worsening | |+ + +| STD panel- HIV, RPR, G/C, tich | 2023-01-09 |+ + +| Refilled Metformin , declines control at this time | 2023-02-07 || track periods and ovulation | || RTC if no improvement | |+ + +| lipid panel | 2023-02-07 |+ + +| CMP, CBC, A1C | 2023-02-07 |+ + +| Provera 10mg x 5 days sent to pharmacy- declines OCPs at this time | 2023-03-07 || gynecology referral | || RTC if no improvement | |+ + +| Obese,height and weight are not proportionate. | 2023-06-01 |+ + +| Patient is clinically well | 2023-06-01 || Will completion the form based on labs and PPD report | |+ + +| Patient to have PPD placed | 2023-06-01 || Follow up 06/03/2023 after 10am | || Patient is aware that we are not open 06/04/2023 and if unable to have read | || will need to repeat | |+ + +| Check titers Varicella, MMR, Hep B | 2023-06-01 || Patient reports completed vaccinations. | |+ + +| COVID, FLU, RSV STREP | 2023-07-04 || If positive for covid regardless of vaccination status- Isolate for 5 days. If | || you have no symptoms or your symptoms are resolving after 5 days, you can leave | || your house. Continue to wear a well-fitting mask around others for 5 additional | || days If you have a fever, continue to stay home until your fever resolves. | || | || If you were exposed: | || Have been booster OR Completed the primary series of Pfizer of Moderna vaccine | || within the last 6 months OR Completed the primary series of J&J vaccine within | || the last 2 months---- wear a mask around others for 10 days; test on day 5 , if | || possible, If you develop symptoms, get a test and stay home. | || | || IF you were exposed: Completed the primary series of Pfizer or Moderna vaccine | || over 6 months ago and are not boosted OR Completed the primary series of J&J | || over 2 months ago and are not boosted OR are unvaccinated---Stay home for 5 | || days, AFter that continue to wear a well-fitting mask around others for 5 | || additional days, If you can't quarantine you must wear a well- fiiting mask for | || 10 days. Test on day 5 if possible. If you develop symptoms, get a test and | || stay home, | |+ + +| tessalon pearls TID PRN | 2023-07-04 || visouse lidocain gargle and do not swallow QID prn. | |+ + +| COVID, FLU, RSV STREP | 2023-07-04 || If positive for covid regardless of vaccination status- Isolate for 5 days. If | || you have no symptoms or your symptoms are resolving after 5 days, you can leave | || your house. Continue to wear a well-fitting mask around others for 5 additional | || days If you have a fever, continue to stay home until your fever resolves. | || | || If you were exposed: | || Have been booster OR Completed the primary series of Pfizer of Moderna vaccine | || within the last 6 months OR Completed the primary series of J&J vaccine within | || the last 2 months---- wear a mask around others for 10 days; test on day 5 , if | || possible, If you develop symptoms, get a test and stay home. | || | || IF you were exposed: Completed the primary series of Pfizer or Moderna vaccine | || over 6 months ago and are not boosted OR Completed the primary series of J&J | || over 2 months ago and are not boosted OR are unvaccinated---Stay home for 5 | || days, AFter that continue to wear a well-fitting mask around others for 5 | || additional days, If you can't quarantine you must wear a well- fiiting mask for | || 10 days. Test on day 5 if possible. If you develop symptoms, get a test and | || stay home, | |+ + +| COVID, FLU, RSV, STREP A | 2023-07-04 || | || If positive for covid regardless of vaccination status- Isolate for 5 days. If | || you have no symptoms or your symptoms are resolving after 5 days, you can leave | || your house. Continue to wear a well-fitting mask around others for 5 additional | || days If you have a fever, continue to stay home until your fever resolves. | || | || If you were exposed: | || Have been booster OR Completed the primary series of Pfizer of Moderna vaccine | || within the last 6 months OR Completed the primary series of J&J vaccine within | || the last 2 months---- wear a mask around others for 10 days; test on day 5 , if | || possible, If you develop symptoms, get a test and stay home. | || | || IF you were exposed: Completed the primary series of Pfizer or Moderna vaccine | || over 6 months ago and are not boosted OR Completed the primary series of J&J | || over 2 months ago and are not boosted OR are unvaccinated---Stay home for 5 | || days, AFter that continue to wear a well-fitting mask around others for 5 | || additional days, If you can't quarantine you must wear a well- fiiting mask for | || 10 days. Test on day 5 if possible. If you develop symptoms, get a test and | || stay home, | |+ + +| UPT negative | 2023-07-25 || CMP LIPID A1C TSH HCG pending | || Ozempic sent to rx | || educated on healthy diet and exercise | |+ + +| Strep Covid Flu Negative | 2023-09-04 || | || Etiology likely viral. NSAIDs or acetaminophen as needed for fever or body | || aches. Increase fluid intake. Rest. Symptoms typically resolve after 7-10 days. | || Advised patient that it is typical for cough to linger 3-4 weeks. | || cough lozenges prn | || rx Bromfed DM prn | |+ + +| Sumatriptan sent to rx | 2023-09-04 || discussed sleep hygiene | || decrease screen time and sunlight | || RTO in 1 week | |+ + +| covid test + | 2023-10-18 || Bromphed 10ml Q4-6 hours as needed for cough and congestion. | || Tylenol or Motrin for body aches and fever. | || Masking and quarantine precautions. | || If no improvement or worsening of symptoms in 7-10 days RTO. | || ER precautions discussed. | |+ + +| Zofran 4mg TID PRN for vomiting. | 2023-10-18 || Hydrate. | || BRAT diet. | || Reassurance provided symptoms will likely resolve in a few days. | || RTO for worsening of symptoms or no resolution in 1 week. | |+ + +| Iburofen 800 mg po tid prn refilled | 2023-11-02 || recommend raspberry leaf tea | || heating pad | || RTO prn | |+ + +| Docusate 250mg daily. | 2023-11-08 || High fiber foods. | || Hydration | || Continue Exercising. | |+ + +[id number] of TreatmentCOLUMBIA MIAMI [facility] IN[facility]|[id number] for patient [id number] Section NarrativeNARRATIVEFormatted C-CDA narrative textSAlbuquerque Indian Health Centernathalydonovan HuynhMercy [facility]2024-04-24T00:00:00 [facility] 00:00:00 [id number] [facility]/[id number] [id number] T00:00:00+ + +| Plan Activity | Plan Date |+ + +| triamcinolone acetonide 0.5 % topical ointment 1 application apply on the skin | 2018-08-13 || twice a day | || prednisone 10 mg tablet daily take 2 pills for 5 days and then 1 pill for 5 | || days | || Apply cool compresses to the skin. | || Use topical treatments to relieve itching, including calamine lotion, oatmeal | || baths, or aluminum acetate (Domeboro solution). | || Oral antihistamines, such as diphenhydramine (Benadryl), can also help relieve | || itching. | || Wash hands | || Wash sheets and clothing | || Medication purpose and side effects reviewed with patient | || Follow up with clinic in one week to determine effectiveness of medication. | |+ + +| Limit fat intake to no more than 20% to 35% of your total calorie intake. For a | 2023-01-09 || person following a 1,800-calorie diet, this means eating no more than 40 to 70 | || grams of fat each day. | || Choose complex carbohydrates, such as whole grains, vegetables, and fruits. | || About 45% to 65% of your total calorie intake should come from carbohydrate. | || For someone following a 1,800-calorie diet, this means eating about 200 to 300 | || grams of carbohydrate each day. | || Choose low-fat protein sources, such as fish, poultry, and legumes (for | || example, barba beans, lentils, and split peas). About 10% to 35% of your total | || calorie intake should come from protein. For someone following a 1,800-calorie | || diet, this means eating about 45 to 160 grams of protein each day. | || Get enough fiber each day. Men should aim for 38 grams a day, and women should | || aim for 25 grams a day. | || Have no more than 1 alcohol drink a day for women and 2 alcohol drinks a day | || for men. | |+ + +| Participate in physical activities and exercise. | 2023-01-09 || 30 of moderate aerobic exercise 5 times a week. Increase your activity as | || tolerated. | |+ + +| Recommend healthy eating with foods from a variety of food groups, appropriate | 2023-01-09 || portion sizes, and few sugary snacks/drinks. | || Well-rounded, whole foods diet focused on fresh vegetables and fruits, lean | || proteins. Avoid sugary drinks. Avoid fried, greasy foods. Portion control. | |+ + +| UPT neg | 2023-01-09 || HCG | |+ + +| Ibuprofen sent to pharmacy | 2023-01-09 || ER precautions | |+ + +| wet mount | 2023-01-09 || STD panel | || RTO if worsening | |+ + +| STD panel- HIV, RPR, G/C, tich | 2023-01-09 |+ + +| Refilled Metformin , declines control at this time | 2023-02-07 || track periods and ovulation | || RTC if no improvement | |+ + +| lipid panel | 2023-02-07 |+ + +| CMP, CBC, A1C | 2023-02-07 |+ + +| Provera 10mg x 5 days sent to pharmacy- declines OCPs at this time | 2023-03-07 || gynecology referral | || RTC if no improvement | |+ + +| Patient is clinically well | 2023-06-01 || Will completion the form based on labs and PPD report | |+ + +| Patient to have PPD placed | 2023-06-01 || Follow up 06/03/2023 after 10am | || Patient is aware that we are not open 06/04/2023 and if unable to have read | || will need to repeat | |+ + +| Check titers Varicella, MMR, Hep B | 2023-06-01 || Patient reports completed vaccinations. | |+ + +| COVID, FLU, RSV STREP | 2023-07-04 || If positive for covid regardless of vaccination status- Isolate for 5 days. If | || you have no symptoms or your symptoms are resolving after 5 days, you can leave | || your house. Continue to wear a well-fitting mask around others for 5 additional | || days If you have a fever, continue to stay home until your fever resolves. | || | || If you were exposed: | || Have been booster OR Completed the primary series of Pfizer of Moderna vaccine | || within the last 6 months OR Completed the primary series of J&J vaccine within | || the last 2 months---- wear a mask around others for 10 days; test on day 5 , if | || possible, If you develop symptoms, get a test and stay home. | || | || IF you were exposed: Completed the primary series of Pfizer or Moderna vaccine | || over 6 months ago and are not boosted OR Completed the primary series of J&J | || over 2 months ago and are not boosted OR are unvaccinated---Stay home for 5 | || days, AFter that continue to wear a well-fitting mask around others for 5 | || additional days, If you can't quarantine you must wear a well- fiiting mask for | || 10 days. Test on day 5 if possible. If you develop symptoms, get a test and | || stay home, | |+ + +| tessalon pearls TID PRN | 2023-07-04 || visouse lidocain gargle and do not swallow QID prn. | |+ + +| COVID, FLU, RSV STREP | 2023-07-04 || If positive for covid regardless of vaccination status- Isolate for 5 days. If | || you have no symptoms or your symptoms are resolving after 5 days, you can leave | || your house. Continue to wear a well-fitting mask around others for 5 additional | || days If you have a fever, continue to stay home until your fever resolves. | || | || If you were exposed: | || Have been booster OR Completed the primary series of Pfizer of Moderna vaccine | || within the last 6 months OR Completed the primary series of J&J vaccine within | || the last 2 months---- wear a mask around others for 10 days; test on day 5 , if | || possible, If you develop symptoms, get a test and stay home. | || | || IF you were exposed: Completed the primary series of Pfizer or Moderna vaccine | || over 6 months ago and are not boosted OR Completed the primary series of J&J | || over 2 months ago and are not boosted OR are unvaccinated---Stay home for 5 | || days, AFter that continue to wear a well-fitting mask around others for 5 | || additional days, If you can't quarantine you must wear a well- fiiting mask for | || 10 days. Test on day 5 if possible. If you develop symptoms, get a test and | || stay home, | |+ + +| COVID, FLU, RSV, STREP A | 2023-07-04 || | || If positive for covid regardless of vaccination status- Isolate for 5 days. If | || you have no symptoms or your symptoms are resolving after 5 days, you can leave | || your house. Continue to wear a well-fitting mask around others for 5 additional | || days If you have a fever, continue to stay home until your fever resolves. | || | || If you were exposed: | || Have been booster OR Completed the primary series of Pfizer of Moderna vaccine | || within the last 6 months OR Completed the primary series of J&J vaccine within | || the last 2 months---- wear a mask around others for 10 days; test on day 5 , if | || possible, If you develop symptoms, get a test and stay home. | || | || IF you were exposed: Completed the primary series of Pfizer or Moderna vaccine | || over 6 months ago and are not boosted OR Completed the primary series of J&J | || over 2 months ago and are not boosted OR are unvaccinated---Stay home for 5 | || days, AFter that continue to wear a well-fitting mask around others for 5 | || additional days, If you can't quarantine you must wear a well- fiiting mask for | || 10 days. Test on day 5 if possible. If you develop symptoms, get a test and | || stay home, | |+ + +| UPT negative | 2023-07-25 || CMP LIPID A1C TSH HCG pending | || Ozempic sent to rx | || educated on healthy diet and exercise | |+ + +| Strep Covid Flu Negative | 2023-09-04 || | || Etiology likely viral. NSAIDs or acetaminophen as needed for fever or body | || aches. Increase fluid intake. Rest. Symptoms typically resolve after 7-10 days. | || Advised patient that it is typical for cough to linger 3-4 weeks. | || cough lozenges prn | || rx Bromfed DM prn | |+ + +| Sumatriptan sent to rx | 2023-09-04 || discussed sleep hygiene | || decrease screen time and sunlight | || RTO in 1 week | |+ + +| covid test + | 2023-10-18 || Bromphed 10ml Q4-6 hours as needed for cough and congestion. | || Tylenol or Motrin for body aches and fever. | || Masking and quarantine precautions. | || If no improvement or worsening of symptoms in 7-10 days RTO. | || ER precautions discussed. | |+ + +| Zofran 4mg TID PRN for vomiting. | 2023-10-18 || Hydrate. | || BRAT diet. | || Reassurance provided symptoms will likely resolve in a few days. | || RTO for worsening of symptoms or no resolution in 1 week. | |+ + +| Iburofen 800 mg po tid prn refilled | 2023-11-02 || recommend raspberry leaf tea | || heating pad | || RTO prn | |+ + [id number] of TreatmentLNCARE PLANTXTSFA|[id number] for patient [id number] Section NarrativeNARRATIVEFormatted C-CDA narrative textSFAStindio Mendez [facility]2024-04-19T00:00:00 Lisandro Leah [facility]"
[2024-01-04 10:54] LABS: Specific Gravity 1.018 (1.005-1.030)
[2024-01-04 11:00] LABS: Sqamous Epithelial None Seen /HPF (None Seen); Transitional Epithelial <5 /HPF (None Seen); Urine Bacteria None Seen /HPF (<20); Urine Culture Reflex Order NOT NEEDED; Urine Micro Reflex YN NO BILL MICROSCOPIC; Urine RBC >50 /HPF (None Seen)
[2024-01-04] MEDS ORDERED: ONDANSETRON 4 MG/2 ML VIAL ONE (11:13)
[2024-01-04] MEDS ORDERED: NA CHLORIDE 0.9% 1,000 ML ONE (11:14)
[2024-01-04] MEDS ORDERED: HYDROMORPHONE HCL 1 MG/ML INJ ONE (11:14)
[2024-01-04 11:51] LABS: Absolute Eosinophils 0.2 K/uL (0-0.5); Absolute Lymphocytes (CBC) 2.1 K/uL (0.7-4.9); Absolute Monocytes 0.5 K/uL (0.1-1.3); Absolute Neutrophil 3.8 K/uL (1.8-8.0); Basophils % 0.7 % (0-1.3); Eosinophils % 2.5 % (0-4.4); Hematocrit 41.7 % (36.0-45.0); Hemoglobin 13.8 g/dL (12.0-15.0); Lymphocytes % 31.3 % (15.3-44.8); MCHC 33.2 g/dL (32.0-36.0); MCV 81.4 fL (80-100); MPV 9.5 fL (7.6-11.3); Monocytes % 8.3 % (3.3-12.3); Neutrophils % 57.2 % (41.7-73.7); Platelets 344 thou/uL (152-406); RBC Red Blood Cell Count 5.12 M/uL (3.86-4.86)
[2024-01-04 12:00] LABS: PT Prothrombin Time 12.5 SECONDS (9.4-12.5); Protime INR 1.14
--- NOTE | 2024-01-04 12:02 | RAD REPORT ---
EXAM DESCRIPTION: US - Transvaginal Study Probe - 01/04/2024 10:46 am CLINICAL HISTORY: pelvic pain;Pain COMPARISON: No comparisons TECHNIQUE: Sonographic grayscale and color flow images of the pelvis were obtained. FINDINGS: The uterus is normal in size, shape and echotexture. The uterus measures 7.1 cm in length. The endometrial stripe is prominent measuring 1.4 cm in thickness. Both ovaries are normal in size, shape and echotexture. The right ovary measures 3.2 x 3.2 x 1.8 cm. The left ovary measures 3.0 x 2.5 x 2.2 cm. No ovarian or parovarian lesions. No adnexal masses. Normal Doppler blood flow was demonstrated to both ovaries. No significant pelvic ascites. IMPRESSION: Mildly prominent endometrial stripe, please correlate with menstrual phase. No other adnexal or pelvic abnormality.
[2024-01-04 12:08] LABS: ALT/SGPT 18 U/L (13-56); AST/SGOT < 10 U/L (15-37); Albumin 3.8 g/dL (3.4-5.0); Albumin/Globulin Ratio 0.8 (1.1-1.8); Alkaline Phosphatase 73 U/L (45-117); Anion Gap 7.8 mEq/L (5.0-15.0); BUN Blood Urea Nitrogen 11 mg/dL (7-18); Bicarbonate 26 mEq/L (21-32); Bilirubin Direct < 0.2 mg/dL (0-0.2); Bilirubin Indirect, Calculated 0.2 mg/dL (0.2-0.8); Bilirubin Total 0.4 mg/dL (0.2-1.0); Globulin 4.7 g/dL (2.3-3.5); Glomerular Filtration Rate 96 ml/min (=/>90); Glucose Level 79 mg/dL (74-106); Potassium 3.8 mEq/L (3.5-5.1); Protein, Total 8.5 g/dL (6.4-8.2); Sodium Level 137 mEq/L (136-145)
--- NOTE | 2024-01-04 12:12 | EDPHYS ---
Physician Documentation [facility] Name: Cipriano Delgadillo Age: 23 yrs Sex: Female : 2000 Arrival Date: 01/04/2024 Time: 09:32 Bed 14 Private MD: ED Physician Ania Hargrove HPI: 01/03 10:05 This 23 yrs old Female presents to ER via Ambulatory with complaints of sp3 Vaginal Bleeding, Pelvic Pain. 10:05 23-year-old female with history of PCOS, diabetes presents to the ED with chief sp3 complaint pelvic pain and heavy vaginal bleeding. Patient is currently on her menses. She saw her STITCHER HAND yesterday where she had a negative UPT and was given "a pain shot" and was told to come to the ED if her pain got worse or did not subside. Patient has no history of anemia and is nulliparous. She denies any other symptoms including bleeding anywhere else, headache, URI symptoms, fever, chest pain, shortness of breath, abdominal pain, vomiting, diarrhea, back pain, rash, or any other signs or symptoms on ROS at this time.. STITCHER HAND: 12:15 LMP N/A - , Not le1 Historical: - Allergies: 09:44 No Known Allergies; nj1 - PMHx: 09:44 PCOS; Diabetes mellitus; nj1 - Immunization history:: Client reports having NOT received the Covid vaccine. - Infectious Disease History:: Denies. - Social history:: Smoking status: Patient denies any tobacco usage or history of. ROS: 10:06 Constitutional: Negative for fever, chills, and weight loss, Eyes: Negative for injury, sp3 pain, redness, and discharge, ENT: Negative for injury, pain, and discharge, Neck: Negative for injury, pain, and swelling, Cardiovascular: Negative for chest pain, palpitations, and edema, Respiratory: Negative for shortness of breath, cough, wheezing, and pleuritic chest pain, Abdomen/GI: Negative for abdominal pain, nausea, vomiting, diarrhea, and constipation, Back: Negative for injury and pain, MS/Extremity: Negative for injury and deformity, Skin: Negative for injury, rash, and discoloration, Neuro: Negative for headache, weakness, numbness, tingling, and seizure, Psych: Negative for depression, anxiety, suicide ideation, homicidal ideation, and hallucinations, Allergy/Immunology: Negative for hives, rash, and allergies, Endocrine: Negative for neck swelling, polydipsia, polyuria, polyphagia, and marked weight changes, 10:06 All other systems are negative, Exam: 10:06 Constitutional: This is a well developed, well nourished patient who is awake, alert, sp3 and in no acute distress. Head/Face: Normocephalic, atraumatic. Eyes: Pupils equal round and reactive to light, extra-ocular motions intact. Lids and lashes normal. Conjunctiva and sclera are non-icteric and not injected. Cornea within normal limits. Periorbital areas with no swelling, redness, or edema. Neck: Trachea midline, no thyromegaly or masses palpated, and no cervical lymphadenopathy. Supple, full range of motion without nuchal rigidity, or vertebral point tenderness. No Meningismus. Chest/axilla: Normal chest wall appearance and motion. Nontender with no deformity. No lesions are appreciated. Cardiovascular: Regular rate and rhythm with a normal S1 and S2. No gallops, murmurs, or rubs. Normal PMI, no JVD. No pulse deficits. Respiratory: Lungs have equal breath sounds bilaterally, clear to auscultation and percussion. No rales, rhonchi or wheezes noted. No increased work of breathing, no retractions or nasal flaring. Abdomen/GI: Soft, non-tender, with normal bowel sounds. No distension or tympany. No guarding or rebound. No evidence of tenderness throughout. Back: No spinal tenderness. No costovertebral tenderness. Full range of motion. Skin: Warm, dry with normal turgor. Normal color with no rashes, no lesions, and no evidence of cellulitis. MS/ Extremity: Pulses equal, no cyanosis. Neurovascular intact. Full, normal range of motion. Neuro: Awake and alert, GCS 15, oriented to person, place, time, and situation. Cranial nerves II-XII grossly intact. Motor strength 5/5 in all extremities. Sensory grossly intact. Cerebellar exam normal. Normal gait. Psych: Awake, alert, with orientation to person, place and time. Behavior, mood, and affect are within normal limits. 10:06 : Patient with active vaginal bleeding consistent with menses. Speculum exam deferred due to ultrasound., Vital Signs: 09:40 BP 100 / 79; Pulse 94; Resp 16; Temp 97.1(TE); Pulse Ox 100% on R/A; Weight 116.57 kg; nj1 Height 5 ft. 7 in. ; Pain 8/10; 11:54 BP 123 / 80; Pulse 83; Resp 18; Pulse Ox 98% on R/A; le1 12:19 BP 139 / 69; Pulse 90; Resp 18; Temp 98.3; Pulse Ox 99% on R/A; le1 09:40 Body Mass Index 40.25 (116.57 kg, 170.18 cm) nj1 09:40 Pain Scale: Adult nj1 [place] Coma Score: 12:19 Eye Response: spontaneous(4). Motor Response: obeys commands(6). Verbal Response: le1 oriented(5). Total: 15. MDM: 09:47 Patient medically screened. sp3 10:06 Data reviewed: vital signs, nurses notes, lab test result(s), radiologic studies. ED sp3 course: 23-year-old female with vaginal bleeding and pelvic pain. Differential diagnosis includes menstrual cramps, ovarian pathology, other MSK pain, among others. I am not highly suspicious for GI pathology or vascular pathology including aorta at this time. Workup will include ultrasound of the pelvis transvaginal assessing the ovaries and uterus, laboratory values including coagulation profile, repeat test and general supportive care. IV fluids and pain medication have also been ordered (Dilaudid, Zofran). Disposition pending workup and patient course with probable discharge if workup is negative and patient is improved.. 12:11 ED course: Full workup negative including ultrasound. Hemoglobin normal. Will safely sp3 discharge patient home on tramadol and follow-up with DRESSMAKER OR TAILOR.. 01/03 10:03 Order name: Basic Metabolic Panel; Complete Time: 12: sp3 01/03 10:03 Order name: CBC with Diff; Complete Time: 12: sp3 01/03 10:03 Order name: Test, Urine; Complete Time: 12: sp3 01/03 10:03 Order name: LFT's; Complete Time: 12: sp3 01/03 10:03 Order name: PT-INR; Complete Time: 12: sp3 01/03 10:03 Order name: Ptt, Activated; Complete Time: 12:11 sp3 01/03 10:53 Order name: Urine Microscopic Only; Complete Time: 12:11 EDMS 01/03 10:10 Order name: Transvaginal Study Probe; Complete Time: 12:11 EDMS 01/03 10:03 Order name: IV Saline Lock; Complete Time: 11:57 sp3 01/03 10:03 Order name: Labs collected and sent; Complete Time: 11:57 sp3 01/03 10:03 Order name: NPO; Complete Time: 10:14 sp3 01/03 10:03 Order name: NPO; Complete Time: 11:57 sp3 Administered Medications: 11:50 Drug: NS 0.9% IV 1000 ml IV at 1 bolus Per protocol; 1000 mL bolus Route: IV; Rate: 1 le1 bolus; Site: right antecubital; 12:28 Follow up: IV Status: Order to discontinue infusion; IV Intake: 500ml le1 11:50 Drug: HYDROmorphone IVP 1 mg IVP once Route: IVP; Site: right antecubital; le1 12:15 Follow up: Response: No adverse reaction; Pain is decreased le1 11:50 Drug: Ondansetron IVP 4 mg IVP once; over 2 minutes Route: IVP; Site: right antecubital;le1 12:14 Follow up: Response: No adverse reaction; Nausea is decreased le1 Disposition Summary: 01/04/24 12:12 Discharge Ordered Notes: Location: Home sp3 Condition: Stable sp3 Diagnosis - Menstrual cramp, menorrhagia sp3 Followup: sp3 - With: Private Physician - When: Upon discharge from the Emergency Department - Reason: Continuance of care Discharge Instructions: - Discharge Summary Sheet sp3 - Menstruation sp3 Forms: - Medication Reconciliation Form sp3 - Antibiotic Education sp3 - Prescription Opioid Use sp3 - Patient Portal Instructions sp3 - Leadership Thank You Letter sp3 Prescriptions: - Tramadol 50 mg Oral Tablet - take 1 tablet ORAL route every 8 hours as needed; 12 tablet; Refills: 0, sp3 Product Selection Permitted Signatures: Dispatcher [employer] Ania De Luna MD MD sp3 Lee Ann Donato RN RN nj1 Elvin Tee RN RN le1 Corrections: (The following items were deleted from the chart) 10:03 10:03 BASIC METABOLIC PANEL+C.LAB.BRZ ordered. EDMS EDMS 10:03 10:03 CBC+H.LAB.BRZ ordered. EDMS EDMS 10:03 10:03 Test, Urine+UC.LAB.BRZ ordered. EDMS EDMS 10:03 10:03 HEPATIC FUNCTION+C.LAB.BRZ ordered. EDMS EDMS 10:03 10:03 PROTIME (+INR)+COAG.LAB.BRZ ordered. EDMS EDMS 10:03 10:03 PTT, ACTIVATED+COAG.LAB.BRZ ordered. EDMS EDMS 10:03 10:03 Pelvis Complete+US.RAD.BRZ ordered. EDMS EDMS 10:53 10:03 Urinalysis+U.LAB.BRZ ordered. EDMS EDMS
--- NOTE | 2024-01-04 12:12 | ER ---
Nurse's Notes [facility] Name: Cipriano Delgadillo Age: 23 yrs Sex: Female : 2000 Arrival Date: 01/04/2024 Time: 09:32 Bed 14 Private MD: Diagnosis: Menstrual cramp, menorrhagia Presentation: 01/03 09:40 Chief complaint: Patient states: Pelvic pain for 2 weeks that got eased some, however, nj1 yesterday pain worsen. Started her period yesterday, took ibuprofen yesterday with no relief. Hx of PCOS. Seen by ASSEMBLY STOCK SUPERVISOR yesterday at [facility], given a shot of pain medication and instructed to come to ED if pain not better. Coronavirus screen: Vaccine status: Patient reports being unvaccinated. Ebola Screen: Patient denies travel to an Ebola-affected area in the 21 days before illness onset. Initial Sepsis Screen: Does the patient meet any 2 criteria? HR > 90 bpm. No. Patient's initial sepsis screen is negative. Does the patient have a suspected source of infection? No. Patient's initial sepsis screen is negative. Risk Assessment: Do you want to hurt yourself or someone else? Patient reports no desire to harm self or others. Onset of symptoms was January 03, 2024. 09:40 Method Of Arrival: Ambulatory [facility] [place] 09:40 Acuity: RYLEE 3 nj1 Triage Assessment: 09:46 General: Appears in no apparent distress. uncomfortable, Behavior is calm, cooperative, nj1 appropriate for age. Pain: Complains of pain in pelvis Pain currently is 8 out of 10 on a pain scale. Neuro: Level of Consciousness is awake, alert, obeys commands, Oriented to person, place, time, situation. Cardiovascular: Patient's skin is warm and dry. Respiratory: Airway is patent Respiratory effort is even, unlabored. SUPERVISOR TREATING AND PUMPING: 12:15 LMP N/A - , Not le1 Historical: - Allergies: 09:44 No Known Allergies; nj1 - PMHx: 09:44 PCOS; Diabetes mellitus; nj1 - Immunization history:: Client reports having NOT received the Covid vaccine. - Infectious Disease History:: Denies. - Social history:: Smoking status: Patient denies any tobacco usage or history of. Screenin:48 [facility] ED Fall Risk Assessment (Adult) History of falling in the last 3 months, le1 including since admission No falls in past 3 months (0 pts) Confusion or Disorientation No (0 pts) Intoxicated or Sedated No (0 pts) Impaired Gait No (0 pts) Mobility Assist Device Used No (0 pt) Altered Elimination No (0 pt) Score/Fall Risk Level 0 - 2 = Low Risk Oriented to surroundings, Maintained a safe environment, Educated pt \T\ family on fall prevention, incl call for assistance when getting out of bed, Hourly rounding (assess needs \T\ fall precautionary measures) done. Abuse screen: Denies threats or abuse. Nutritional screening: No deficits noted. Tuberculosis screening: No symptoms or risk factors identified. Assessment: 10:46 General: Appears in no apparent distress. Behavior is calm, cooperative. Pain: le1 Complains of pain in pelvis Pain does not radiate. Pain currently is 7 out of 10 on a pain scale. Quality of pain is described as aching. Neuro: No deficits noted. [place]aya Agitation-Sedation Scale (RASS): 0 - Alert and Calm Level of Consciousness is awake, alert, obeys commands, Oriented to person, place, time, situation, Speech is normal. Cardiovascular: No deficits noted. Respiratory: No deficits noted. : Reports pain in suprapubic area vaginal bleeding that is bright red. 11:51 Reassessment: Patient appears in no apparent distress at this time. No changes from le1 previously documented assessment. Patient and/or family updated on plan of care and expected duration. Pain level reassessed. Patient is alert, oriented x 3, equal unlabored respirations, skin warm/dry/pink. 12:14 Reassessment: Discharge pending completion of IV fluids. le1 Vital Signs: 09:40 BP 100 / 79; Pulse 94; Resp 16; Temp 97.1(TE); Pulse Ox 100% on R/A; Weight 116.57 kg; nj1 Height 5 ft. 7 in. ; Pain 8/10; 11:54 BP 123 / 80; Pulse 83; Resp 18; Pulse Ox 98% on R/A; le1 12:19 BP 139 / 69; Pulse 90; Resp 18; Temp 98.3; Pulse Ox 99% on R/A; le1 09:40 Body Mass Index 40.25 (116.57 kg, 170.18 cm) [facility] [place] 09:40 Pain Scale: Adult nj1 [place] Coma Score: 12:19 Eye Response: spontaneous(4). Motor Response: obeys commands(6). Verbal Response: le1 oriented(5). Total: 15. ED Course: 09:35 Patient arrived in ED. mr 09:36 Ania Hargrove MD is Attending Physician. sp3 09:44 Triage completed. nj1 09:46 Arm band placed on left wrist. nj1 09:51 Elvin Tee, RN is Primary Nurse. le1 10:47 Transvaginal Study Probe In Process Unspecified. EDMS 10:49 Patient has correct armband on for positive identification. Bed in low position. Call le1 light in reach. Side rails up X 1. Adult w/ patient. Provided Education on: press call light if needing anything. Client placed on continuous cardiac and pulse oximetry monitoring. NIBP monitoring applied. Pulse ox on. 10:50 Test, Urine Sent. le1 11:49 Basic Metabolic Panel Sent. le1 11:49 CBC with Diff Sent. le1 11:49 Ptt, Activated Sent. le1 11:49 PT-INR Sent. le1 11:49 LFT's Sent. le1 11:50 Inserted saline lock: 20 gauge in right antecubital area, using aseptic technique. le1 Blood collected. 11:51 Initial lab(s) drawn, by me, sent to lab. le1 12:15 No provider procedures requiring assistance completed. le1 12:27 IV discontinued, bleeding controlled, No redness/swelling at site. Pressure dressing le1 applied. Administered Medications: 11:50 Drug: NS 0.9% IV 1000 ml IV at 1 bolus Per protocol; 1000 mL bolus Route: IV; Rate: 1 le1 bolus; Site: right antecubital; 12:28 Follow up: IV Status: Order to discontinue infusion; IV Intake: 500ml le1 11:50 Drug: HYDROmorphone IVP 1 mg IVP once Route: IVP; Site: right antecubital; le1 12:15 Follow up: Response: No adverse reaction; Pain is decreased le1 11:50 Drug: Ondansetron IVP 4 mg IVP once; over 2 minutes Route: IVP; Site: right antecubital;le1 12:14 Follow up: Response: No adverse reaction; Nausea is decreased le1 Medication: 12:15 VIS not applicable for this client. le1 Intake: 12:28 IV: 500ml; Total: 500ml. le1 Outcome: 12:12 Discharge ordered by . sp3 12:27 Discharged to home ambulatory, le1 12:27 Condition: improved 12:27 Discharge instructions given to patient, family, Instructed on discharge instructions, follow up and referral plans. medication usage, Demonstrated understanding of instructions, follow-up care, medications, Prescriptions given X 1, 12:29 Patient left the ED. le1 Signatures: Dispatcher [employer] EDMS Eduarda Alvarez, Reg Reg Ania Hargrove MD MD sp3 Lee Ann Donato RN RN nj1 Elvin Tee RN RN le1 Corrections: (The following items were deleted from the chart) 10:53 10:50 Urinalysis+U.LAB.BRZ drawn and sent. le1 EDFL
[2024-01-04 12:46] VITALS: BP 139/69; TEMP 98.3; O2SAT 99
== END 2024-01-04 12:29 | disposition home or self-care (01) ==
LOC: ER 09:32
DX: N92.0 Excessive and frequent menstruation with regular cycle (principal); R10.9 Unspecified abdominal pain
CPT/HCPCS: 96361; 85025; 80048; 36415; 81025; 85610; 80076; 85730; 81015; 76830; 96375; 96374; 99284; J1170; J2405; J7030